=== PATIENT | female | born 1975 | race Caucasian/White ===

== ENCOUNTER 2020-03-08 06:01 | Inpatient (IN) ==
--- NOTE | 2020-02-23 10:48 | Anesthesiology Consultation ---
Date of Service February 23, 2020 Assessment & Plan (1) Encounter for pre-operative examination: Chart Review Chart Review: Acceptable Risk for Surgery and Patient seen in Pre Admission Testing Teaching & Discussion Instructed NPO after midnight before surgery, except medications with 15 cc of water. Medication instructions provided according to the [facility] guidelines. History Surgery Operation Date: 03/08/20 11:05 Proposed Procedures p C6-C7 Anterior Cervical Discectomy and Fusion, Possible C4-C6 Hardware Removal, Spinal Cord Monitoring - Juan Driscoll DO Height/Weight Height: 5 ft 3 in Weight: 72.5 kg Allergies Allergy/AdvReac Type Severity Reaction Status Date / Time ibuprofen AdvReac Severe difficulty Verified 02/16/20 08:40 swallowing and severe kidneu=y pain codeine AdvReac Intermediate GI SYMPTOMS Verified 02/16/20 08:40 morphine AdvReac Intermediate GI SYMPTOMS Verified 02/16/20 08:40 Medications Home Medications Medication Instructions Recorded Confirmed Last Taken aspirin 650 mg PO DAILY PRN 02/16/20 02/16/20 Unknown cyclobenzaprine 10 mg PO HS PRN 02/16/20 02/16/20 Unknown infliximab [Remicade] 100 mg IV DIRECTED 02/16/20 02/16/20 Unknown Past Medical History Medical History (Updated 02/25/20 @ 08:25 by Jethro Spencer) Bulging of cervical intervertebral disc Cardiac murmur Not noted on exam at [facility]. Cervical stenosis of spine Menopausal symptoms Numbness and tingling in left arm [employer] Pulmonary hypertension Per patient was noted on workup for murmur. Attempted to obtain stress test patient reported was done but unable to obtain. Exercise / Class Metabolic Activity II 4-5 Yardwork/Stairs/Walk up hill (Denies CP or with 1 FOS) Past Family History Family History Uncle Family history of diabetes mellitus Past Surgical History Surgical History History of back surgery X8 LOWER History of colonoscopy Hx of cervical spine surgery Hx of cholecystectomy Hx of tubal ligation Past Anesthesia History No Hx of Anesthesia Complications and No Family Hx of Anesthesia Complications History of PONV No Hx of PONV and No Hx of Motion Sickness Social History Smoking Status: Current every day smoker tobacco type: cigarettes Smoking cigarettes per day: 20 Hx Alcohol Use: Yes Alcohol type: beer alcohol intake frequency: a few times a month Hx Substance Use: Yes substance use type: marijuana (Daily - patient advised none x 24hrs prior to arrival) Review of Systems Pt denies any recent chest pain, shortness of breath, palpitations, cough, fever or URI. +"Smokers cough" chronic Physical Exam Vital Signs BP: 119/75 P: 77bpm SPO2: 96% RA T: 98.3 F R: 16 ENMT Mouth: no dental restorations, no chipped teeth and no loose teeth Thyromental Distance: > or= 3.5 Finger Breadths (3.5) Mallampati Class: III Neck normal visual inspection; neck extension not limited Respiratory normal respiratory effort Auscultation: + wheezes (scattered B/L, loudest in R lung base) Cardiovascular Rate/Rhythm: regular rate and regular rhythm Heart Sounds: no murmur Vessels: no carotid bruit Extremities: no edema Testing Laboratory Results 02/23/20 10:58 02/23/20 10:58 PT 10.4 Seconds (9.0-12.0) 02/23/20 10:58 INR 1.0 (0.9-1.1) 02/23/20 10:58 APTT 30.8 Seconds (21.0-31.0) 02/23/20 10:58 Urine Color Yellow 02/23/20 10:58 Urine Appearance Clear (Clear) 02/23/20 10:58 Urine pH 6.5 (4.5-7.5) 02/23/20 10:58 Ur Specific Sulphur 1.010 (1.000-1.030) 02/23/20 10:58 Urine Protein Negative (Negative) 02/23/20 10:58 Urine Glucose (UA) Negative (Negative) 02/23/20 10:58 Urine Ketones Negative (Negative) 02/23/20 10:58 Urine Nitrite Negative (Negative) 02/23/20 10:58 Ur Leukocyte Esterase Negative (Negative) 02/23/20 10:58 Blood Type O Positive 02/23/20 10:58 Antibody Screen NEGATIVE 02/23/20 10:58 Electrocardiogram Date: 02/23/20 Findings: + NSR @ (66bpm) Right atrial enlargement. No significant change from EKG 11/03/13. Chest X-Ray Date: 02/23/20 Findings: + NAD
--- NOTE | 2020-02-23 10:52 | PAT Medication Instructions ---
Medication Instructions Date of Service February 23, 2020 Home Medications aspirin 650 mg PO DAILY PRN cyclobenzaprine 10 mg PO HS PRN infliximab [Remicade] 100 mg IV DIRECTED Continue as directed infliximab [Remicade] 100 mg IV DIRECTED ASK your surgeon for instructions aspirin 650 mg PO DAILY PRN Take evening before surgery cyclobenzaprine 10 mg PO HS PRN (if needed) Other Notes If you have any questions please call us at [phone] or [phone] or [phone] or [phone]
--- NOTE | 2020-02-23 11:27 | XRay Report ---
XR chest Pre-admission PA/Lat CLINICAL HISTORY: 44 years-old Female presenting with preoperative assessment. TECHNIQUE: PA and lateral views of the chest were obtained. COMPARISON: 11/03/2013. FINDINGS: Cardiomediastinal silhouette normal. Lungs and pleural spaces clear. Posterior lumbar fusion hardware partially visualized. Cholecystectomy clips noted. IMPRESSION: 1. No acute cardiopulmonary disease. ACT 112: Negative or not required by law. Electronically signed by: Jc Onofre M.D. 02/23/2020 11:26 AM
[2020-02-23 12:15] LABS: Basophils # (auto) 0.04 K/uL (0-0.2); Basophils % (auto) 0.4 %; Eosinophils % (auto) 2.2 %; Hematocrit (blood only) 44.7 % (37-47); Hemoglobin 15.2 g/dL (12.0-16.0); Immature Granulocytes # (auto) 0.01 K/uL (0.00-0.02); Immature Granulocytes % (auto) 0.1 %; Lymphocytes # (auto) 2.65 K/uL (1.2-3.4); Lymphocytes % (auto) 29.2 %; Mean Corpuscular Hemoglobin 30.9 pg (25-34); Mean Corpuscular Volume 90.9 fL (80-100); Mean Platelet Volume 9.2 fL (7.4-10.4); Monocytes # (auto) 0.86 K/uL (0.11-0.59); Monocytes % (auto) 9.5 %; Neutrophils # (auto) 5.33 K/uL (1.4-6.5); Neutrophils % (auto) 58.6 %; Platelet Count 299 K/uL (130-400); RDW Coefficient of Variation 13.5 % (11.5-14.5); RDW Standard Deviation 44.4 fL (36.4-46.3); Red Blood Count 4.92 M/uL (4.2-5.4); White Blood Count 9.09 K/uL (4.8-10.8)
[2020-02-23 12:18] LABS: Appearance Urine Clear (Clear); Bilirubin Urine Negative (Negative); Blood Urine Negative (Negative); Color Urine Yellow; Glucose Urine UA Negative (Negative); Ketones Urine Negative (Negative); Leukocyte Esterase Urine Negative (Negative); Nitrite Urine Negative (Negative); Protein Urine Negative (Negative); Urobilinogen Urine Negative (Negative); pH Urine 6.5 (4.5-7.5)
[2020-02-23 12:23] LABS: BUN Creatinine Ratio 15.1 (10-20); Calcium 9.5 mg/dl (8.5-10.1); Creatinine Clr Calc Pharmacy 103.2 ml/min; Est GFR (African American) 123.4; Est GFR (Non-African American) 106.5; Potassium 4.5 mmol/L (3.5-5.1)
[2020-02-23 12:35] LABS: Partial Thromboplastin Ratio 1.1; Partial Thromboplastin Time 30.8 Seconds (21.0-31.0); Prothrombin Time 10.4 Seconds (9.0-12.0)
--- NOTE | 2020-02-23 14:31 | Electrocardiogram Report ---
Test Reason : Blood Pressure : / mmHG Vent. Rate : 066 BPM Atrial Rate : 066 BPM P-R Int : 136 ms QRS Dur : 094 ms QT Int : 412 ms P-R-T Axes : 087 089 079 degrees QTc Int : 431 ms Normal sinus rhythm Right atrial enlargement Borderline ECG When compared with ECG of 03-NOV-2013 12:31, No significant change was found Confirmed by Leon Santos ([id number]) on 02/23/2020 2:31:37 PM Referred By: Juan Driscoll Confirmed By:Alexis Santos
--- NOTE | 2020-03-07 12:05 | History & Physical Report ---
Date of Service March 07, 2020 Assessment & Plan (1) Myelopathy concurrent with and due to spinal stenosis of cervical region: At this time patient is having a steady decline in neurologic function including signs of myelopathy. Subsequently I am recommending urgent anterior cervical discectomy and fusion at see 6 C7 to adequately decompress the cord hopefully halt the progression of myelopathy and strength deficits emanating to the left arm. With therapy she may regain some strength. Acknowledging that there is a coated pandemic however waiting for a more weeks could result in permanent neurologic deficit and sequela I unable to to be resolved with surgical intervention. Surgery will require an anterior cervical discectomy and fusion at C6-C7, possible hardware removal C4-C6. Present on Admission?: Yes History of Present Illness Chief Complaint: Neck with arm pain and weakness Primary Care Provider: Royer Gutiérrez This is a 44-year-old female with a history of a previous cervical fusion at C4- 5 C5-6 many years ago. Recently she began noticing a new onset of pain rating into the left greater than right arm with strength deficits involving the left hand and triceps. This is been progressive in nature. She denies any precipitating trauma fall or event. All activities exacerbate her symptoms. She is a 7-8 out of 10 with pain. She notes deficits with fine motor skills and coordination using her hands. Allergies Allergy/AdvReac Type Severity Reaction Status Date / Time ibuprofen AdvReac Severe difficulty Verified 02/16/20 08:40 swallowing and severe kidneu=y pain codeine AdvReac Intermediate GI SYMPTOMS Verified 02/16/20 08:40 morphine AdvReac Intermediate GI SYMPTOMS Verified 02/16/20 08:40 Home Medications Home Medications Medication Instructions Recorded Confirmed Type aspirin 650 mg PO DAILY PRN 02/16/20 02/16/20 History cyclobenzaprine 10 mg PO HS PRN 02/16/20 02/16/20 History infliximab [Remicade] 100 mg IV DIRECTED 02/16/20 02/16/20 History Past Med/Surg History Medical History (Updated 03/07/20 @ 12:03 by Juan Driscoll DO) Bulging of cervical intervertebral disc Cardiac murmur Not noted on exam at [facility]. Cervical stenosis of spine Menopausal symptoms Numbness and tingling in left arm [employer] Pulmonary hypertension Per patient was noted on workup for murmur. Attempted to obtain stress test patient reported was done but unable to obtain. Surgical History History of back surgery X8 LOWER History of colonoscopy Hx of cervical spine surgery Hx of cholecystectomy Hx of tubal ligation Family History Uncle Family history of diabetes mellitus Social History Preferred Language: Chilean Communication Ability: Effective Beliefs That Will Affect Care: None Current Living Situation: Alone Feels Safe at Home: Yes Safety Concerns: Feels Safe At This Time Smoking Status: Current every day smoker Tobacco Type: cigarettes ; Cigarettes Per Day: 20 ; Second Hand Exposure: No ; Hx Alcohol Use: Yes Alcohol type: beer Hx Substance Use: Yes substance use type: marijuana (Daily - patient advised none x 24hrs prior to arrival) Physical Exam Physical Exam: On exam she is in obvious distress. She exhibits markedly positive Spurling sign to the left as well as evidence of a Lhermitte's phenomenon. She exhibits left-sided strength deficits at a 4/5 grasp and triceps. She had sensory deficits bilaterally. There is a negative Tinel's over the cubital and carpal tunnels. Heart is regular rate and rhythm Lungs clear to auscultation Results & Data Diagnostic Findings MRI of the cervical spine demonstrates evidence of decompression fusion at C4-5 and C5-6. C6-7 there is broad central disc herniation with severe bilateral neuroforaminal disease. There is evidence of cord contour change and myelomalacia at the 6 7 level. All other levels are relatively benign.
[~2020-03-08 06:01] MED LIST: ACETAMINOPHEN 500 MG TAB PO SCH; CEFAZOLIN 1000MG 1,000 MG/7.5 ML SYR IV SCH; CeleBREX 200 MG CAP PO SCH; GABAPENTIN 900 MG DOSE PO SCH; LR 15ML/HR IV SCH
[2020-03-08] MEDS ORDERED: ePHEDrine sulfate 50 MG/ML AMP IV PRN (06:56)
[2020-03-08] MEDS ORDERED: ATROPINE SULFATE 0.1 MG/ML 10ML SYR IV PRN (06:56)
[2020-03-08] MEDS ORDERED: PROMETHAZINE HCL 12.5 MG in SODIUM CHLORIDE 0.9% 50 ML IV PRN ×2 (06:56→11:19)
[2020-03-08] MEDS ORDERED: ONDANSETRON INJ 2 MG/ML 2 ML VIAL IV PRN ×2 (06:56→11:19)
[2020-03-08] MEDS ORDERED: LIDOCAINE HCL 2% 2 ML VIAL/AMP(20MG/ML) INFIL ONE (07:04)
[2020-03-08] MEDS ORDERED: ONDANSETRON INJ 2 MG/ML 2 ML VIAL ONE (07:04)
[2020-03-08] MEDS ORDERED: DEXAMETHASONE SOD INJ 4 MG/ML VIAL ONE ×2 (07:04→10:05)
[2020-03-08] MEDS ORDERED: GLYCOPYRROLATE 0.2 MG/ML VIAL ONE (07:04)
[2020-03-08] MEDS ORDERED: NEOSTIGMINE METHYLSULFATE 5 MG/5 ML SYR ONE (07:04)
[2020-03-08] MEDS ORDERED: fentaNYL citrate 100 MCG/2 ML VIAL ONE ×2 (07:04)
[2020-03-08] MEDS ORDERED: PROPOFOL IV EMULSION 10 MG/ML 20 ML VIAL IV ONE (07:04)
[2020-03-08] MEDS ORDERED: MIDAZOLAM HCL 1 MG/ML 2ML VIAL ONE (07:04)
--- NOTE | 2020-03-08 07:40 | History & Physical Bridge Note ---
Date of Service March 08, 2020 History & Physical Bridge Note I have examined the patient, reviewed the History & Physical and in the interval since the performance of the History & Physical I have noted the following changes of clinical significance: no changes noted
[2020-03-08] MEDS ORDERED: BACITRACIN INJ 50,000 UNIT VIAL ONE (07:46)
[2020-03-08] MEDS ORDERED: HYDROmorphone INJ 2 MG/ML SYR/VIAL ONE (08:24)
[2020-03-08] MEDS ORDERED: PHENYLEPHRINE 100MCG/ML 5ML SYR ONE (08:45)
[2020-03-08] MEDS ORDERED: FLOSEAL HEMOSTATIC MATRIX 10ML TOP ONE (08:50)
--- NOTE | 2020-03-08 09:40 | Fluoroscopy Report ---
FL cervical 2-3V CLINICAL HISTORY: 44 years-old Female presenting with C6-C7 ACDF. TECHNIQUE: 2 fluoroscopic image(s) recorded as part of an intraoperative procedure. COMPARISON: None. FINDINGS/IMPRESSION: Anterior cervical discectomy and fusion of C6-7. Fusion hardware also noted at C4-5 and C5-6. Normal anatomic alignment. Surgical sponge and support tubing project over the anterior neck. Please see surgical report for further details. Fluoroscopy dosage (mGy): 1.49. Fluoroscopy time: 11.6 seconds. Number or time of high level fluoroscopy (HLF), digital spot, or digital subtraction images: 0. ACT 112: Negative or not required by law. Electronically signed by: Jc Onofre M.D. 03/08/2020 9:39 AM
--- NOTE | 2020-03-08 09:47 | Operative Report ---
Post Operative Report Pre & Post Diagnosis Operation Date: 03/08/20 07:45 Pre-Op Diagnosis: Cervical spinal stenosis with myeloradiculopathy Post-Op Diagnosis: Same I identified the patient and participated in the time-out.: Yes Procedure Operation Date: 03/08/20 07:45 Actual Procedures #1 anterior cervical discectomy with bilateral foraminotomies C6-7. #2 anterior cervical arthrodesis C6-7. #3 placement of Spira 9 mm cage filled with DBM and see 6 7. #4 application of 5 complete screws across C6-7. Surgeon Juan Driscoll, Chief Order Dispatcher Mary Theodore Estimated Blood Loss 50 Findings Consistent with Post-Op Diagnosis Specimens None Indications This is a 44-year-old female that presents with worsening left arm pain and w eakness that is been progressive in nature subsequently we performed urgent decompression and fusion. Description of Procedure Patient was met with identified informed consent obtained. Patient was then taken to the operative suite underwent intubation was placed in supine position the Abhinav table head Moseley head baker. All bony prominences well-padded eyes inspected to ensure no external pressure placed upon the. This point the anterior cervical spine was prepped and draped in a sterile fashion. The assistance of fluoroscopy identified the see 6 7 level a transverse incision was placed along the right anterior aspect of the cervical spine. Sharp dissection with assistance of bipolar electrocautery is warm down to and exposing the anterior cervical spine at C6-7. I verified my position with fluoroscopy. Then performed a complete discectomy out to the uncovertebral joints right leg. Willits distracting pins utilized to assist in visualization. Removed all posterior annular fibers longitudinal ligament bilateral foraminotomies performed for complete decompression of the roots. Endplates were then burred to subcortical bleeding bone and a 9 mm spiral cage filled with DBM tapped position. Distracting apparatus was removed 5 complete screws applied with the assistance of fluoroscopy and incision was then copiously irrigated explored to ensure no damage to surrounding structures remaining bleeding. 10 round TERESITA drain inserted. Incision was then closed with 2 Vicryl in a fashion of 4 Monocryl for final skin closure. Steri-Strip sterile dressings placed. Patient will continue PACU stable condition. Please note Mary Theodore present at the entire procedure involved the patient positioning complex portions of the surgery final skin closure. Lastly spinal cord monitoring was utilized that the procedure no changes noted. I attest to the content of the Intraoperative Record and any orders documented therein. Any exceptions are noted below.
[2020-03-08] MEDS ORDERED: SUCCINYLCHOLINE CHLORIDE 20 MG/ML 10 ML VIAL ONE (10:05)
[2020-03-08] MEDS ORDERED: ROCURONIUM BROMIDE 10 MG/ML 5 ML VIAL ONE (10:05)
[2020-03-08] MEDS: fentaNYL citrate 100 MCG/2 ML VIAL IV PRN ×4 (10:09→10:24)
[2020-03-08] MEDS: HYDROmorphone INJ 2 MG/ML SYR/VIAL IV PRN ×2 (10:29→10:34)
--- NOTE | 2020-03-08 10:58 | Anesthesiology Progress Note ---
Date of Service March 08, 2020 Anesthesia Post Procedure Vital Signs Vital Signs: Temp Pulse Resp BP Pulse Ox 03/08/20 10:45 36.4 C L 60 13 110/75 98 03/08/20 10:35 65 15 120/69 99 03/08/20 10:25 53 L 18 115/75 98 03/08/20 10:15 54 L 19 108/74 95 03/08/20 10:05 59 L 15 122/81 100 03/08/20 09:59 36.8 C 71 21 116/77 100 03/08/20 06:29 36.6 C 85 20 147/93 H 98 Pain Intensity Neck: Pain Intensity: 6 Transfer of Care Handoff Completed per policy Notes Mental Status: alert / awake / arousable and participated in evaluation Patient Amnestic to Procedure: Yes Nausea / Vomiting: adequately controlled Pain: adequately controlled Airway Patency, RR, SpO2: stable & adequate BP & HR: stable & adequate Hydration State: stable & adequate Anesthetic Complications: no major complications apparent
[2020-03-08] MEDS: LACTATED RINGER'S 1,000 ML IV SCH ×2 (11:10→19:30)
[2020-03-08] MEDS ORDERED: DO NOT ADMINISTER PNEUMOCOCCAL VACCINE PRN (11:19)
[2020-03-08] MEDS ORDERED: ONDANSETRON 4 MG OD TAB PO PRN (11:19)
[2020-03-08] MEDS ORDERED: ASPIRIN 325 MG ECTAB PO PRN (11:19)
[2020-03-08] MEDS ORDERED: ALUMINUM/MAGNESIUM SUSP 30 ML UDC PO PRN (11:19)
[2020-03-08] MEDS ORDERED: LORazepam 0.5 MG TAB PO PRN (11:19)
[2020-03-08] MEDS ORDERED: FAMOTIDINE 20 MG TAB PO PRN (11:19)
[2020-03-08] MEDS ORDERED: LORazepam 0.5 MG/1 ML VIAL IV PRN (11:19)
[2020-03-08] MEDS ORDERED: SOD PHOSPHATE/SOD BIPHOSPHATE ENEMA 132 ML BTL PR PRN (11:19)
[2020-03-08] MEDS ORDERED: ACETAMINOPHEN 500 MG TAB PO PRN (11:19)
[2020-03-08] MEDS ORDERED: NALOXONE HCL 0.4 MG/1 ML VIAL/CARP IV PRN (11:19)
[2020-03-08] MEDS ORDERED: HYDROmorphone INJ 0.5 MG/0.5 ML SYR IV PRN (11:19)
[2020-03-08] MEDS ORDERED: MAGNESIUM HYDROXIDE SUSP 30 ML UDC PO PRN (11:19)
[2020-03-08] MEDS ORDERED: DEXAMETHASONE SOD PHOSPHATE 8 MG in SYRINGE 0 ML IV PRN (11:19)
[2020-03-08] MEDS ORDERED: METOCLOPRAMIDE HCL INJ 5 MG/ML 2 ML VIAL IV PRN (11:19)
[2020-03-08] MEDS ORDERED: DO NOT ADMINISTER FLU VACCINE PRN (11:19)
[2020-03-08] MEDS ORDERED: RACEPINEPHRINE 2.25% NEBU SOLN 0.5 ML VIAL INH PRN (11:19)
[2020-03-08] MEDS ORDERED: CYCLOBENZAPRINE HCL 10 MG TAB PO PRN (11:33)
[2020-03-08] MEDS: OXYCODONE HCL IR 5 MG TAB (IMMEDIATE RELEASE) PO PRN ×3 (11:43→22:32)
[2020-03-08] MEDS: HYDROmorphone INJ 1 MG/ML SYRINGE IV PRN ×2 (13:40→18:36)
[2020-03-08] MEDS: CEFAZOLIN 2000MG 2,000 MG/15 ML SYR IV SCH (16:14)
[2020-03-08] MEDS: ACETAMINOPHEN 1,000 MG/100 ML VIAL IV PRN (17:10)
[2020-03-08] MEDS: NICOTINE 21 MG/24 HR TDSY TD SCH (18:29)
[2020-03-08] MEDS ORDERED: DOCUSATE SODIUM/SENNA 50/8.6MG TAB PO SCH (21:00)
[2020-03-08] MEDS ORDERED: ALBUTEROL HFA 8 GM INHALER INH PRN (23:37)
[2020-03-09] MEDS: HYDROmorphone INJ 1 MG/ML SYRINGE IV PRN ×2 (00:19→07:35)
[2020-03-09] MEDS: CEFAZOLIN 2000MG 2,000 MG/15 ML SYR IV SCH (00:24)
[2020-03-09] MEDS: OXYCODONE HCL IR 5 MG TAB (IMMEDIATE RELEASE) PO PRN ×2 (05:17→10:40)
[2020-03-09] MEDS: LACTATED RINGER'S 1,000 ML IV SCH (05:52)
[2020-03-09] MEDS: ACETAMINOPHEN 1,000 MG/100 ML VIAL IV PRN (05:54)
--- NOTE | 2020-03-09 07:33 | Anesthesiology Progress Note ---
Date of Service March 09, 2020 Anesthesia Post Procedure Vital Signs Vital Signs: Temp Pulse Pulse Resp BP Pulse Ox 03/09/20 07:05 36.7 C 76 17 118/72 93 03/09/20 04:55 36.7 C 75 18 117/75 96 03/09/20 03:39 77 18 95 03/09/20 03:10 36.7 C 66 16 108/67 96 03/09/20 00:48 36.4 C L 88 16 128/77 94 03/08/20 23:00 36.7 C 63 20 116/66 94 03/08/20 22:53 73 18 94 03/08/20 21:00 36.5 C 66 18 118/72 03/08/20 19:15 36.6 C 83 18 121/70 94 03/08/20 19:08 84 18 93 03/08/20 18:15 74 15 115/68 94 03/08/20 16:08 60 15 116/69 93 03/08/20 15:52 72 14 95 03/08/20 14:17 61 13 106/70 96 03/08/20 13:33 36.4 C L 64 14 107/68 95 03/08/20 12:20 61 16 114/72 94 03/08/20 11:45 58 L 15 117/80 95 03/08/20 11:31 69 16 90 03/08/20 11:25 36.6 C 63 14 110/74 92 03/08/20 10:55 67 19 123/54 L 96 03/08/20 10:45 36.4 C L 60 13 110/75 98 03/08/20 10:35 65 15 120/69 99 03/08/20 10:25 53 L 18 115/75 98 03/08/20 10:15 54 L 19 108/74 95 03/08/20 10:05 59 L 15 122/81 100 03/08/20 09:59 36.8 C 71 21 116/77 100 Pain Intensity Neck: Pain Intensity: 9 Notes Mental Status: alert / awake / arousable and participated in evaluation Nausea / Vomiting: adequately controlled Pain: adequately controlled Airway Patency, RR, SpO2: stable & adequate BP & HR: stable & adequate Hydration State: stable & adequate Anesthetic Complications: no major complications apparent and Pt Satisfied with anesthetic care
[2020-03-09] MEDS ORDERED: DEXAMETHASONE SOD PHOSPHATE 8 MG in SYRINGE 0 ML IV ONE (07:45)
[2020-03-09] MEDS ORDERED: POLYETHYLENE (MIRALAX) 17 GM PACK PO SCH (09:48)
[2020-03-09] MEDS: NICOTINE 21 MG/24 HR TDSY TD SCH (10:01)
--- NOTE | 2020-03-09 10:16 | Discharge Summary ---
Date of Service March 09, 2020 Admission HPI Per Admitting Provider This is a 44-year-old female with a history of a previous cervical fusion at C4- 5 C5-6 many years ago. Recently she began noticing a new onset of pain rating into the left greater than right arm with strength deficits involving the left hand and triceps. This is been progressive in nature. She denies any precipitating trauma fall or event. All activities exacerbate her symptoms. She is a 7-8 out of 10 with pain. She notes deficits with fine motor skills and coordination using her hands. Principal Diagnosis Cervical spinal stenosis with myeloradiculopathy Discharge Data Allergies Allergy/AdvReac Type Severity Reaction Status Date / Time ibuprofen Allergy Severe Swelling Verified 03/08/20 06:31 of Lip/Tongue/Throat tramadol [From Ultram] Allergy Intermediate Rash Verified 03/08/20 06:31 codeine AdvReac Intermediate GI SYMPTOMS Verified 03/08/20 06:31 morphine AdvReac Intermediate GI SYMPTOMS Verified 03/08/20 06:31 Procedures Performed Operation Date: 03/08/20 07:45 Actual Procedures p C6-C7 Anterior Cervical Discectomy and Fusion, Spinal Cord Monitoring(Not Applicable) - Juan Driscoll DO Ordered Studies 03/08/20 07:45 FL cervical 2-3V Routine FL fluoroscopy <1hr Routine Hospital Course (1) Myelopathy concurrent with and due to spinal stenosis of cervical region: Patient underwent anterior cervical discectomy and fusion tolerated this well was taken to the orthopedic floor postoperatively. Postop day #1 she had no hoarseness no swallowing issues. She demonstrated increased strength testing to the upper extremities. She felt her fine motor skills was slowly improving. She is states that most of her numbness is completely resolved. Subsequently she was discharged home. Discharge orders and instructions found in the chart for further review. Total Time Total Time Spent Total Time Spent (In Minutes): 20 minutes Discharge Plan Discharge Items Patient Disposition: Home - Self-Care Reason For Visit: Spinal Stenosis, Cervical Region Discharge Diagnosis: Cervical spinal stenosis with myeloradiculopathy Activity: As commented below Non-emergency contact: Primary Care Provider Call non-emergency contact if: you have any medication questions Follow-up/Referrals: Royer Gutiérrez DO [Primary Care Provider] - Diet: Regular Addtl Attending Provider Instructions: ACTIVITY RECOMMENDATIONS: SELF CARE INSTRUCTIONS AFTER CERVICAL FUSIONS 1. No smoking. Smoking drastically decreases the chance of a solid fusion. 2. No bending, lifting more than 5 pounds, or twisting (roll like a log when turning in bed). 3. You may shower 3 days after surgery. Thoroughly dry wound. Do not soak in the tub. 4. Cervical collar: Must be worn at all times including sleeping. You may remove the brace only to bath, eat and if you are sitting in a recliner. 5. Please walk as much as you can for exercise. Gradually increase the distance that you walk as your endurance increases. SPECIAL CARE INSTRUCTIONS: VERY IMPORTANT TO READ AND REVIEW A. Do not take any anti-inflammatory medications (i.e. Indocin, Advil, Aspirin, Naprosyn, Aleve, Motrin, etc.) as these may inhibit the chance of a solid fusion. Tylenol is okay to take. B. Your surgical incision has been closed with a cosmetic suture under the skin that will dissolve in about 6 weeks. In 14 days, you can use a pair of clean scissors and cut the suture that is left outside of the skin at the ends of your incision. C. Complications are uncommon, but please contact us if you have any signs or symptoms of: 1. wound infection (fever higher than 102.5 degrees F, redness, separation of wound, drainage, or increasing pain from the incision) 2. blood clots in legs (pain, swelling, redness and warmth in legs) 3. urinary tract infection (fever higher than 102.5 degrees, burning upon urination or increased frequency of urination) 4. nerve problems (inability to walk on your toes or heels, numbness, loss of bowel or bladder control) 5. any other symptoms that concern you. D. Please call the office at if you have any concerns or questions about your operation or recovery. MANAGING PAIN AFTER SPINAL SURGERY 1. Narcotic medication is intended for short-term use and will be provided for surgical pain. Surgical pain usually lasts for a period of 4-6 weeks. Narcotic medication includes Percocet, Vicodin, Darvocet, Tylenol #3 or Lortab. 2. Longer-term pain is more appropriately treated with non-narcotic medication such as Tylenol ES. 3. Muscle spasm is not appropriately treated with narcotics. Muscle relaxers such as Soma, Flexeril or Skelaxin can be used along with Tylenol ES. 4. Remember that we all live with some "aches and pains". This is not unusual or uncommon after an injury or as we get older. 5. We will provide appropriate medication within the normal guidelines of their prescribed use. We will also be very cautious and aware of potential abuse and extended duration of patients' medication needs. 6. Please allow 2-3 days to process refills. Prescriptions will not be mailed but must be picked up at the office. FOLLOW UP VISIT: Keep your scheduled follow-up appointment. Any questions, please call the office at . Pending Studies at Discharge: No Stand-Alone Forms: My [facility], Smoking Cessation Medications and DC Order Prescriptions: New oxycodone 5 mg tablet 5 mg PO Q6H PRN (Reason: pain, severe) Qty: 15 RF: 0 Continued cyclobenzaprine 10 mg Tablet 10 mg PO HS PRN (Reason: Pain) RF: 0 aspirin 325 mg Tablet 650 mg PO DAILY PRN (Reason: Headache) RF: 0 Remicade 100 mg Recon Soln 100 mg IV DIRECTED RF: 0 Discharge Orders: Discharge Order (Routine); Ordered 03/09/20 Ordered By: Juan Driscoll Admission Data Admit Date/Time: 03/08/20 10:07 Attending Provider: Juan Driscoll Admit Provider: Juan Driscoll Primary Care Provider: Royer Gutiérrez
[2020-03-10] MEDS ORDERED: bisacodyL 10 MG SUPP PR PRN (09:48)
== END 2020-03-09 12:30 | disposition home or self-care (01) | DRG 473 ==
LOC: ASU 06:01 → 3E 10:07

== ENCOUNTER 2020-03-15 10:59 | Inpatient (IN) ==
[2020-03-15] MEDS ORDERED: PROMETHAZINE HCL 12.5 MG in SODIUM CHLORIDE 0.9% 50 ML IV PRN (11:47)
[2020-03-15] MEDS ORDERED: ONDANSETRON 4 MG OD TAB PO PRN (11:47)
[2020-03-15] MEDS ORDERED: ACETAMINOPHEN 500 MG TAB PO PRN (11:47)
[2020-03-15] MEDS ORDERED: OXYCODONE HCL IR 5 MG TAB (IMMEDIATE RELEASE) PO PRN (11:47)
[2020-03-15] MEDS ORDERED: METOCLOPRAMIDE HCL INJ 5 MG/ML 2 ML VIAL IV PRN (11:47)
[2020-03-15] MEDS ORDERED: LORazepam 1 MG TAB PO PRN (11:47)
[2020-03-15] MEDS ORDERED: LORazepam 1 MG/2 ML VIAL IV PRN (11:47)
[2020-03-15] MEDS ORDERED: ONDANSETRON INJ 2 MG/ML 2 ML VIAL IV PRN (11:47)
--- NOTE | 2020-03-15 12:02 | Anesthesiology Consultation ---
Date of Service March 15, 2020 Assessment & Plan (1) Encounter for pre-operative examination: Chart Review Chart Review: order entry representative initiated History Surgery Operation Date: 03/16/20 10:45 Proposed Procedures p Revision C6-C7 Anterior Cervical Discectomy Fusion; Spinal Cord Monitoring - Juan Driscoll DO Allergies Allergy/AdvReac Type Severity Reaction Status Date / Time ibuprofen Allergy Severe Swelling Verified 03/08/20 06:31 of Lip/Tongue/Throat tramadol [From Ultram] Allergy Intermediate Rash Verified 03/08/20 06:31 codeine AdvReac Intermediate GI SYMPTOMS Verified 03/08/20 06:31 morphine AdvReac Intermediate GI SYMPTOMS Verified 03/08/20 06:31 Medications Home Medications Medication Instructions Recorded Confirmed Last Taken Remicade 100 mg IV DIRECTED 02/16/20 03/08/20 Unknown aspirin 650 mg PO DAILY PRN 02/16/20 03/08/20 03/03/20 cyclobenzaprine 10 mg PO HS PRN 02/16/20 03/08/20 03/04/20 oxycodone 5 mg PO Q6H PRN #15 tab 03/09/20 Unknown Past Medical History Medical History Bulging of cervical intervertebral disc Cardiac murmur Not noted on exam at [facility]. 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 Attempted to obtain stress test patient reported was done but unable to obtain. Past Family History Family History Uncle Family history of diabetes mellitus Past Surgical History Surgical History History of back surgery X8 LOWER History of colonoscopy Hx of cervical spine surgery Hx of cholecystectomy Hx of tubal ligation Social History Smoking Status: Current every day smoker tobacco type: cigarettes Smoking cigarettes per day: 20 Hx Alcohol Use: Yes Alcohol type: beer alcohol intake frequency: a few times a month Hx Substance Use: Yes substance use type: marijuana (Daily - patient advised none x 24hrs prior to arrival) Testing Laboratory Results Laboratory Tests 02/23/20 02/23/20 02/23/20 10:58 10:58 10:58 WBC 9.09 Hgb 15.2 Plt Count 299 PT 10.4 INR 1.0 APTT 30.8 Sodium 138 Potassium 4.5 Chloride 106 Carbon Dioxide 29 BUN 10 Creatinine 0.65 Glucose 91 Electrocardiogram Date: 02/23/20 Normal sinus rhythm, rate 66 bpm Right atrial enlargement Borderline ECG When compared with ECG of 03-NOV-2013 12:31, No significant change was found Confirmed by Leon Santos ([id number]) on 02/23/2020 2:31:37 PM Chest X-Ray Date: 02/23/20 Findings: + NAD Cervical Spine Date: 03/08/20 FINDINGS/IMPRESSION: Anterior cervical discectomy and fusion of C6-7. Fusion hardware also noted at C4-5 and C5-6. Normal anatomic alignment. Surgical sponge and support tubing project over the anterior neck.
[2020-03-15] MEDS: LACTATED RINGER'S 1,000 ML IV SCH ×2 (12:20→23:38)
[2020-03-15] MEDS: dexAMETHasone 8 MG in SYRINGE 0 ML IV SCH ×2 (12:23→20:36)
[2020-03-15] MEDS: HYDROmorphone INJ 0.5 MG/0.5 ML SYR IV PRN ×2 (12:53→15:58)
[2020-03-15] MEDS: NICOTINE 21 MG/24 HR TDSY TD SCH (16:08)
[2020-03-15] MEDS: HYDROmorphone INJ 1 MG/ML SYRINGE IV PRN ×2 (19:00→23:37)
[2020-03-15] MEDS: DOCUSATE SODIUM 100 MG CAP PO SCH (20:36)
[2020-03-16] MEDS: dexAMETHasone 8 MG in SYRINGE 0 ML IV SCH (03:40)
[2020-03-16] MEDS: HYDROmorphone INJ 1 MG/ML SYRINGE IV PRN ×9 (03:44→22:30)
--- NOTE | 2020-03-16 07:33 | History & Physical Report ---
Date of Service March 16, 2020 Assessment & Plan (1) Myelopathy concurrent with and due to spinal stenosis of cervical region: At this time I am recommending urgent revision decompression and fusion at C6-C7. Risk benefits pros cons and alternatives were outlined in detail. Present on Admission?: Yes History of Present Illness Chief Complaint: Neck and right arm pain Primary Care Provider: Royer Gutiérrez This is a 44-year-old female that is 1 week status post ACDF C6-C7. She presents to my office yesterday with a marked decline in status now with severe right sided cervical radiculopathy in a C7 pattern. This began approximately 2 to 3 days postop. Imaging in my office demonstrates possible collapse of the interbody cage. She has not responded to oral steroids or any pain medication. The pain is severe. Allergies Allergy/AdvReac Type Severity Reaction Status Date / Time ibuprofen Allergy Severe Swelling Verified 03/08/20 06:31 of Lip/Tongue/Throat tramadol [From Ultram] Allergy Intermediate Rash Verified 03/08/20 06:31 codeine AdvReac Intermediate GI SYMPTOMS Verified 03/08/20 06:31 morphine AdvReac Intermediate GI SYMPTOMS Verified 03/08/20 06:31 Home Medications Home Medications Medication Instructions Recorded Confirmed Type Remicade 100 mg IV DIRECTED 02/16/20 03/15/20 History aspirin 650 mg PO DAILY PRN 02/16/20 03/15/20 History cyclobenzaprine 10 mg PO HS PRN 02/16/20 03/15/20 History oxycodone 5 mg PO Q6H PRN #15 tab 03/09/20 03/15/20 Rx methylprednisolone 4 mg PO DIRECTED 03/15/20 03/15/20 History Past Med/Surg History Medical History Bulging of cervical intervertebral disc Cardiac murmur Not noted on exam at [facility]. 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 Attempted to obtain stress test patient reported was done but unable to obtain. 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 She has weakness to testing the right hand grasp and triceps. The left is a 5 or 5. Heart regular rate and rhythm Lungs clear to auscultation Results & Data Vital Signs (Past 12 Hours) Vital Signs Temp Pulse Resp BP Pulse Ox 03/15/20 23:22 36.6 C 71 16 120/74 94 Code Status & VTE Plan VTE Prophylaxis Plan VTE Prophylaxis will be ordered: Yes
[2020-03-16] MEDS: NICOTINE 21 MG/24 HR TDSY TD SCH (07:58)
[2020-03-16] MEDS: DOCUSATE SODIUM 100 MG CAP PO SCH ×2 (08:02→20:22)
[2020-03-16] MEDS ORDERED: ONDANSETRON INJ 2 MG/ML 2 ML VIAL IV PRN ×2 (09:38→14:07)
[2020-03-16] MEDS ORDERED: ePHEDrine sulfate 50 MG/ML AMP IV PRN (09:38)
[2020-03-16] MEDS ORDERED: ATROPINE SULFATE 0.1 MG/ML 10ML SYR IV PRN (09:38)
[2020-03-16] MEDS ORDERED: ONDANSETRON INJ 2 MG/ML 2 ML VIAL ONE (09:58)
[2020-03-16] MEDS ORDERED: SUCCINYLCHOLINE CHLORIDE 20 MG/ML 10 ML VIAL ONE (09:58)
[2020-03-16] MEDS ORDERED: ROCURONIUM BROMIDE 10 MG/ML 5 ML VIAL ONE (09:58)
[2020-03-16] MEDS ORDERED: DEXAMETHASONE SOD INJ 4 MG/ML VIAL ONE (09:58)
[2020-03-16] MEDS ORDERED: LIDOCAINE HCL 2% 2 ML VIAL/AMP(20MG/ML) INFIL ONE (09:58)
[2020-03-16] MEDS ORDERED: PROPOFOL IV EMULSION 10 MG/ML 20 ML VIAL IV ONE (09:58)
[2020-03-16] MEDS ORDERED: fentaNYL citrate 100 MCG/2 ML VIAL ONE ×2 (09:59→12:32)
[2020-03-16] MEDS ORDERED: MIDAZOLAM HCL 1 MG/ML 2ML VIAL ONE (09:59)
--- NOTE | 2020-03-16 10:16 | History & Physical Bridge Note ---
Date of Service March 16, 2020 History & Physical Bridge Note I have examined the patient, reviewed the History & Physical and in the interval since the performance of the History & Physical I have noted the following changes of clinical significance: no changes noted
[2020-03-16] MEDS ORDERED: BACITRACIN INJ 50,000 UNIT VIAL ONE (10:22)
[2020-03-16] MEDS ORDERED: HYDROmorphone INJ 2 MG/ML SYR/VIAL ONE (11:16)
[2020-03-16] MEDS ORDERED: CEFAZOLIN 250 MG/ML 1 GM VIAL ONE (11:26)
[2020-03-16] MEDS ORDERED: FLOSEAL HEMOSTATIC MATRIX 10ML TOP ONE (12:00)
[2020-03-16] MEDS ORDERED: CEFAZOLIN 2000MG 2,000 MG/15 ML SYR IV ONE (12:01)
--- NOTE | 2020-03-16 12:24 | Operative Report ---
Post Operative Report Pre & Post Diagnosis Operation Date: 03/16/20 10:45 Pre-Op Diagnosis: Cervical Radiculopathy Post-Op Diagnosis: Cervical Radiculopathy Superior endplate fracture of C7. I identified the patient and participated in the time-out.: Yes Procedure Operation Date: 03/16/20 10:45 Actual Procedures #1 removal of instrumentation including interbody construct C6-C7. #2 revision decompression C6-C7. #3 anterior cervical arthrodesis C6-C7. #4 placement of Spira 12 mm cage filled with DBM at C6-7. #5 placement of pinto plate and scre ws across C6-7. Surgeon Juan Driscoll, DO Deli Worker Mary Theodore Estimated Blood Loss 10 Findings See Below Clear endplate fracture of C7 Specimens None Indications This is a 44-year-old female status post ACDF C6-7. She is had a more decline in status over the past several days. X-rays in the office were suspicious for collapse across the interbody constructs of C6-7. Subsequently she was admitted for urgent revision decompression fusion Description of Procedure Patient was met with identified informed consent obtained. Patient was then taken to the operative suite underwent intubation and placed in supine position the Abhinav table with head Moseley head ordered. All bony prominences well- padded. Eyes inspected to ensure no external pressure placed upon. This point the anterior cervical spine was prepped and draped in a sterile fashion. Utilizing the previous incision site sharp dissection was performed the skin was able to dissect down bluntly to the C6-7 plate. The plate was then removed distracting pins applied and the interbody cage removed. Is obvious fracture of the C7 superior endplate was noted and collapsed. I then performed a revision bilateral foraminal decompression. A 12 mm spiral plate filled with DBM was then placed in position which held reasonable distraction across the disc space. A new plate was then applied with the assistance of fluoroscopy. The incision was then copiously irrigated explored to ensure no damage to surrounding structures remaining bleeding. 10 round TERESITA drain inserted. Is then closed with 2 Vicryl in the fashion of 4 Monocryl for final skin closure. Steri-Strips dressings placed. Patient will continue PACU stable condition. Please note Mary Theodore was present at the entire procedure involved the patient positioning complex portions of the surgery and final skin closure. I attest to the content of the Intraoperative Record and any orders documented therein. Any exceptions are noted below.
[2020-03-16] MEDS ORDERED: NEOSTIGMINE METHYLSULFATE 5 MG/5 ML SYR ONE (12:34)
[2020-03-16] MEDS ORDERED: GLYCOPYRROLATE 0.2 MG/ML VIAL ONE (12:34)
[2020-03-16] MEDS: fentaNYL citrate 100 MCG/2 ML VIAL IV PRN ×4 (12:34→12:49)
[2020-03-16] MEDS ORDERED: HYDROmorphone INJ 1 MG/ML SYRINGE ONE (12:51)
--- NOTE | 2020-03-16 13:13 | Fluoroscopy Report ---
FL cervical 2-3V CLINICAL HISTORY: C6-C7 ACDF COMPARISON STUDY: Cervical spine 03/08/2020. FLUOROSCOPY TIME: 55 seconds. FINDINGS: 2 fluoroscopic spot images of the cervical spine demonstrate C6-C7 ACDF. The hardware appea rs intact. An endotracheal tube is noted within the proximal trachea. IMPRESSION: Fluoroscopy provided for C6-C7 ACDF. ACT 112: Negative or not required by law. Electronically signed by: Jd Sotelo M.D. 03/16/2020 1:11 PM
--- NOTE | 2020-03-16 13:34 | Anesthesiology Progress Note ---
Date of Service March 16, 2020 Anesthesia Post Procedure Vital Signs Vital Signs: Temp Pulse Pulse Resp BP Pulse Ox 03/16/20 13:18 36.2 C L 66 21 143/88 H 96 03/16/20 13:10 36.2 C L 66 17 142/87 H 96 03/16/20 13:00 57 L 24 146/87 H 96 03/16/20 12:50 68 16 144/88 H 96 03/16/20 12:40 69 23 159/93 H 99 03/16/20 12:30 36.2 C L 75 21 160/103 H 98 03/16/20 09:26 36.8 C 63 18 144/82 H 94 03/16/20 07:52 36.6 C 65 16 128/71 95 03/15/20 23:22 36.6 C 71 16 120/74 94 03/15/20 15:33 36.6 C 71 16 113/76 93 Pain Intensity Right Arm: Pain Intensity: 7 Neck: Pain Intensity: 4 Transfer of Care Handoff Completed per policy Notes Mental Status: alert / awake / arousable and participated in evaluation Patient Amnestic to Procedure: Yes Nausea / Vomiting: adequately controlled Pain: adequately controlled Airway Patency, RR, SpO2: stable & adequate BP & HR: stable & adequate Hydration State: stable & adequate Anesthetic Complications: no major complications apparent and Pt Satisfied with anesthetic care
[2020-03-16] MEDS ORDERED: ACETAMINOPHEN 500 MG TAB PO PRN (14:07)
[2020-03-16] MEDS ORDERED: OXYCODONE HCL IR 5 MG TAB (IMMEDIATE RELEASE) PO PRN (14:07)
[2020-03-16] MEDS ORDERED: LORazepam 0.5 MG TAB PO PRN (14:07)
[2020-03-16] MEDS ORDERED: MAGNESIUM HYDROXIDE SUSP 30 ML UDC PO PRN (14:07)
[2020-03-16] MEDS ORDERED: LORazepam 0.5 MG/1 ML VIAL IV PRN (14:07)
[2020-03-16] MEDS ORDERED: HYDROmorphone INJ 0.5 MG/0.5 ML SYR IV PRN (14:07)
[2020-03-16] MEDS ORDERED: HYDROmorphone INJ 1 MG/ML SYRINGE IV PRN (14:07)
[2020-03-16] MEDS ORDERED: DEXAMETHASONE SOD PHOSPHATE 8 MG in SYRINGE 0 ML IV PRN (14:07)
[2020-03-16] MEDS ORDERED: SOD PHOSPHATE/SOD BIPHOSPHATE ENEMA 132 ML BTL PR PRN (14:07)
[2020-03-16] MEDS ORDERED: DO NOT ADMINISTER PNEUMOCOCCAL VACCINE PRN (14:07)
[2020-03-16] MEDS ORDERED: RACEPINEPHRINE 2.25% NEBU SOLN 0.5 ML VIAL INH PRN (14:07)
[2020-03-16] MEDS ORDERED: PROMETHAZINE HCL 12.5 MG in SODIUM CHLORIDE 0.9% 50 ML IV PRN (14:07)
[2020-03-16] MEDS ORDERED: METOCLOPRAMIDE HCL INJ 5 MG/ML 2 ML VIAL IV PRN (14:07)
[2020-03-16] MEDS ORDERED: ACETAMINOPHEN 1,000 MG/100 ML VIAL IV PRN (14:07)
[2020-03-16] MEDS ORDERED: TRAMADOL HCL 50 MG TABLET PO PRN (14:07)
[2020-03-16] MEDS ORDERED: NALOXONE HCL 0.4 MG/1 ML VIAL/CARP IV PRN (14:07)
[2020-03-16] MEDS ORDERED: FAMOTIDINE 20 MG TAB PO PRN (14:07)
[2020-03-16] MEDS ORDERED: ALUMINUM/MAGNESIUM SUSP 30 ML UDC PO PRN (14:07)
[2020-03-16] MEDS ORDERED: ONDANSETRON 4 MG OD TAB PO PRN (14:07)
[2020-03-16] MEDS ORDERED: DO NOT ADMINISTER FLU VACCINE PRN (14:07)
[2020-03-16] MEDS: LACTATED RINGER'S 1,000 ML IV SCH (14:37)
[2020-03-16] MEDS: DEXAMETHASONE SOD PHOSPHATE 6 MG in SYRINGE 0 ML IV SCH ×2 (14:52→21:41)
[2020-03-16] MEDS: CEFAZOLIN 2000MG 2,000 MG/15 ML SYR IV SCH (19:40)
[2020-03-16] MEDS ORDERED: DOCUSATE SODIUM/SENNA 50/8.6MG TAB PO SCH (21:00)
[2020-03-17] MEDS: LACTATED RINGER'S 1,000 ML IV SCH (00:27)
[2020-03-17] MEDS: HYDROmorphone INJ 1 MG/ML SYRINGE IV PRN ×3 (01:31→07:43)
[2020-03-17] MEDS: CEFAZOLIN 2000MG 2,000 MG/15 ML SYR IV SCH (02:52)
[2020-03-17] MEDS ORDERED: COUGH DROP (SUGAR FREE) LOZ 24 LOZ/1 BOX BUCCAL ONE (04:01)
[2020-03-17] MEDS: DEXAMETHASONE SOD PHOSPHATE 6 MG in SYRINGE 0 ML IV SCH (05:39)
[2020-03-17] MEDS: NICOTINE 21 MG/24 HR TDSY TD SCH (07:47)
[2020-03-17] MEDS: DOCUSATE SODIUM 100 MG CAP PO SCH (07:47)
--- NOTE | 2020-03-17 08:29 | Anesthesiology Progress Note ---
Date of Service March 17, 2020 Anesthesia Post Procedure Vital Signs Vital Signs: Temp Pulse Pulse Resp BP BP Pulse Ox 03/17/20 07:25 61 16 96 03/17/20 07:02 36.5 C 54 L 16 126/76 95 03/17/20 05:04 36.9 C 58 L 16 110/71 92 03/17/20 03:39 58 L 18 93 03/17/20 02:59 36.4 C L 56 L 16 134/77 93 03/17/20 01:02 36.8 C 61 16 119/70 95 03/16/20 23:05 36.9 C 60 16 122/80 94 03/16/20 23:01 80 16 92 03/16/20 23:00 03/16/20 20:59 36.7 C 54 L 16 119/81 98 03/16/20 19:03 86 18 94 03/16/20 18:05 36.4 C L 69 16 138/87 96 03/16/20 16:57 36.4 C L 69 18 137/90 98 03/16/20 15:43 72 14 98 03/16/20 15:16 36.4 C L 76 16 130/80 97 03/16/20 14:36 69 18 119/68 93 03/16/20 14:07 03/16/20 14:00 36.9 C 67 16 134/90 96 03/16/20 13:46 36.2 C L 66 14 127/78 95 03/16/20 13:30 36.2 C L 65 14 138/84 96 03/16/20 13:20 36.2 C L 66 21 143/88 H 96 03/16/20 13:10 36.2 C L 66 17 142/87 H 96 03/16/20 13:00 57 L 24 146/87 H 96 03/16/20 12:50 68 16 144/88 H 96 03/16/20 12:40 69 23 159/93 H 99 03/16/20 12:30 36.2 C L 75 21 160/103 H 98 03/16/20 09:26 36.8 C 63 18 144/82 H 94 Pulse Ox 03/17/20 07:25 03/17/20 07:02 03/17/20 05:04 03/17/20 03:39 03/17/20 02:59 03/17/20 01:02 03/16/20 23:05 03/16/20 23:01 03/16/20 23:00 94 03/16/20 20:59 03/16/20 19:03 03/16/20 18:05 03/16/20 16:57 03/16/20 15:43 03/16/20 15:16 03/16/20 14:36 03/16/20 14:07 96 03/16/20 14:00 03/16/20 13:46 03/16/20 13:30 03/16/20 13:20 03/16/20 13:10 03/16/20 13:00 03/16/20 12:50 03/16/20 12:40 03/16/20 12:30 03/16/20 09:26 Pain Intensity Right Arm: Pain Intensity: 7 Neck: Pain Intensity: 5 Notes Mental Status: alert / awake / arousable and participated in evaluation Nausea / Vomiting: adequately controlled Pain: adequately controlled Airway Patency, RR, SpO2: stable & adequate BP & HR: stable & adequate Hydration State: stable & adequate Anesthetic Complications: no major complications apparent
--- NOTE | 2020-03-17 08:41 | Discharge Summary ---
Date of Service March 17, 2020 Admission HPI Per Admitting Provider This is a 44-year-old female that is 1 week status post ACDF C6-C7. She presents to my office yesterday with a marked decline in status now with severe right sided cervical radiculopathy in a C7 pattern. This began approximately 2 to 3 days postop. Imaging in my office demonstrates possible collapse of the interbody cage. She has not responded to oral steroids or any pain medication. The pain is severe. Principal Diagnosis Cervical radiculopathy Discharge Data Allergies Allergy/AdvReac Type Severity Reaction Status Date / Time ibuprofen Allergy Severe Swelling Verified 03/16/20 10:00 of Lip/Tongue/Throat tramadol [From Ultram] Allergy Intermediate Rash Verified 03/16/20 10:00 codeine AdvReac Intermediate GI SYMPTOMS Verified 03/16/20 10:00 morphine AdvReac Intermediate GI SYMPTOMS Verified 03/16/20 10:00 Consultations 03/15/20 11:47 Consult Anesthesiology Routine Procedures Performed Operation Date: 03/16/20 10:45 Actual Procedures p Revision C6-C7 Anterior Cervical Discectomy Fusion(Not Applicable) - Juan Driscoll DO Ordered Studies 03/16/20 09:30 FL cervical 2-3V Routine FL fluoroscopy <1hr Routine Hospital Course (1) Myelopathy concurrent with and due to spinal stenosis of cervical region: Patient was admitted to the hospital from my office with severe right arm pain and weakness proximally 1 week status post anterior cervical discectomy and fusion. I strongly suspected collapse of the cage. She underwent surgery the next day. Identified a severe endplate fracture of C7. Revised the fusion. Postop day 1 her arm symptoms were markedly improved. She is swallowing well. Arm strength and symptoms improved. TERESITA drain decreasing probably. Subsequently discharged home. Discharge orders instructions from the chart for further review. Total Time Total Time Spent Total Time Spent (In Minutes): 20 minutes Discharge Plan Discharge Items Patient Disposition: Home - Self-Care Reason For Visit: CERVICAL RADICULOPATHY Discharge Diagnosis: Cervical spinal stenosis with radiculopathy Activity: As commented below Non-emergency contact: Primary Care Provider Call non-emergency contact if: you have any medication questions Follow-up/Referrals: Royer Gutiérrez DO [Primary Care Provider] - Diet: Regular Addtl Attending Provider Instructions: ACTIVITY RECOMMENDATIONS: SELF CARE INSTRUCTIONS AFTER CERVICAL FUSIONS 1. No smoking. Smoking drastically decreases the chance of a solid fusion. 2. No bending, lifting more than 5 pounds, or twisting (roll like a log when turning in bed). 3. You may shower 3 days after surgery. Thoroughly dry wound. Do not soak in the tub. 4. Cervical collar: Must be worn at all times including sleeping. You may remove the brace only to bath, eat and if you are sitting in a recliner. 5. Please walk as much as you can for exercise. Gradually increase the distance that you walk as your endurance increases. SPECIAL CARE INSTRUCTIONS: VERY IMPORTANT TO READ AND REVIEW A. Do not take any anti-inflammatory medications (i.e. Indocin, Advil, Aspirin, Naprosyn, Aleve, Motrin, etc.) as these may inhibit the chance of a solid fusion. Tylenol is okay to take. B. Your surgical incision has been closed with a cosmetic suture under the skin that will dissolve in about 6 weeks. In 14 days, you can use a pair of clean scissors and cut the suture that is left outside of the skin at the ends of your incision. C. Complications are uncommon, but please contact us if you have any signs or symptoms of: 1. wound infection (fever higher than 102.5 degrees F, redness, separation of wound, drainage, or increasing pain from the incision) 2. blood clots in legs (pain, swelling, redness and warmth in legs) 3. urinary tract infection (fever higher than 102.5 degrees, burning upon urination or increased frequency of urination) 4. nerve problems (inability to walk on your toes or heels, numbness, loss of bowel or bladder control) 5. any other symptoms that concern you. D. Please call the office at if you have any concerns or questions about your operation or recovery. MANAGING PAIN AFTER SPINAL SURGERY 1. Narcotic medication is intended for short-term use and will be provided for surgical pain. Surgical pain usually lasts for a period of 4-6 weeks. Narcotic medication includes Percocet, Vicodin, Darvocet, Tylenol #3 or Lortab. 2. Longer-term pain is more appropriately treated with non-narcotic medication such as Tylenol ES. 3. Muscle spasm is not appropriately treated with narcotics. Muscle relaxers such as Soma, Flexeril or Skelaxin can be used along with Tylenol ES. 4. Remember that we all live with some "aches and pains". This is not unusual or uncommon after an injury or as we get older. 5. We will provide appropriate medication within the normal guidelines of their prescribed use. We will also be very cautious and aware of potential abuse and extended duration of patients' medication needs. 6. Please allow 2-3 days to process refills. Prescriptions will not be mailed but must be picked up at the office. FOLLOW UP VISIT: Keep your scheduled follow-up appointment. Any questions, please call the office at . Pending Studies at Discharge: No Stand-Alone Forms: My [facility] ideacts innovations, Smoking Cessation Medications and DC Order Prescriptions: New oxycodone 5 mg tablet 5 mg PO Q6H PRN (Reason: pain, severe) Qty: 10 RF: 0 Continued cyclobenzaprine 10 mg Tablet 10 mg PO HS PRN (Reason: Pain) RF: 0 aspirin 325 mg Tablet 650 mg PO DAILY PRN (Reason: Headache) RF: 0 Remicade 100 mg Recon Soln 100 mg IV DIRECTED RF: 0 oxycodone 5 mg tablet 5 mg PO Q6H PRN (Reason: pain, severe) Qty: 15 RF: 0 Discontinued methylprednisolone 4 mg tablets,dose pack 4 mg PO DIRECTED RF: 0 Discharge Orders: Discharge Order (Routine); Ordered 03/17/20 Ordered By: Juan Driscoll Admission Data Admit Date/Time: 03/15/20 11:47 Attending Provider: Juan Driscoll Admit Provider: Juan Driscoll Primary Care Provider: Royer Gutiérrez Other Providers: Kevin Enamorado
[2020-03-17] MEDS: HYDROmorphone INJ 0.5 MG/0.5 ML SYR IV PRN ×2 (10:41→13:42)
[2020-03-17] MEDS ORDERED: POLYETHYLENE (MIRALAX) 17 GM PACK PO SCH (12:03)
[2020-03-18] MEDS ORDERED: bisacodyL 10 MG SUPP PR PRN (12:03)
== END 2020-03-17 13:56 | disposition home or self-care (01) | DRG 473 ==
LOC: 3E 11:35

== ENCOUNTER 2020-04-04 15:05 | Inpatient (IN) ==
[2020-04-04] MEDS ORDERED: LORazepam 1 MG TAB PO PRN (15:38)
[2020-04-04] MEDS ORDERED: PROMETHAZINE HCL 12.5 MG in SODIUM CHLORIDE 0.9% 50 ML IV PRN (15:38)
[2020-04-04] MEDS ORDERED: OXYCODONE HCL IR 5 MG TAB (IMMEDIATE RELEASE) PO PRN (15:38)
[2020-04-04] MEDS ORDERED: HYDROmorphone INJ 0.5 MG/0.5 ML SYR IV PRN (15:38)
[2020-04-04] MEDS ORDERED: METOCLOPRAMIDE HCL INJ 5 MG/ML 2 ML VIAL IV PRN (15:38)
[2020-04-04] MEDS ORDERED: ACETAMINOPHEN 500 MG TAB PO PRN (15:38)
[2020-04-04] MEDS ORDERED: ONDANSETRON INJ 2 MG/ML 2 ML VIAL IV PRN (15:38)
[2020-04-04] MEDS ORDERED: HYDROmorphone INJ 1 MG/ML SYRINGE IV PRN (15:38)
[2020-04-04] MEDS ORDERED: ONDANSETRON 4 MG OD TAB PO PRN (15:38)
[2020-04-04] MEDS ORDERED: LORazepam 1 MG/2 ML VIAL IV PRN (15:38)
--- NOTE | 2020-04-04 16:18 | CT Scan Report ---
CT cervical spine wo con CT DOSE: 231.49 mGy.cm HISTORY: Pain. Neuropathy. neck and arm pain TECHNIQUE: Multiaxial CT images of the cervical spine were performed and reformatted in the sagittal and coronal plane without the use of contrast. A dose lowering technique was utilized adhering to e principles of ALARA. COMPARISON: None FINDINGS: Findings consistent with an anterior C6-C7 fusion. There is a C4-C5 fusion considered pre-e xisting. Straightening of the cervical curvature. Slight fullness of the prevertebral soft tissues most likely related to a small residual component of postoperative soft tissue edematous change. The vertebral b dieudonne stature is normal. Disc spaces are generally well preserved. The posterior elements appear intact . IMPRESSION: 1. Unremarkable postoperative changes to the cervical spine. 2. Hardware appears to be intact at all levels. 3. Muscle spasm with straightening of the cervical curvature. ACT 112: Negative or not required by law. The above report was generated using voice recognition software. It may contain grammatical, syntax or spelling errors. Electronically signed by: Kendall Joseph M.D. 04/04/2020 4:17 PM
[2020-04-04] MEDS: dexAMETHasone 8 MG in SYRINGE 0 ML IV SCH ×2 (16:50→23:40)
[2020-04-04] MEDS: LACTATED RINGER'S 1,000 ML IV SCH (16:55)
[2020-04-04] MEDS: NICOTINE 14 MG/24 HR PATCH TD SCH (17:37)
[2020-04-04] MEDS: HYDROmorphone INJ 1 MG/ML SYRINGE IV PRN ×3 (18:43→23:39)
[2020-04-04] MEDS: DOCUSATE SODIUM 100 MG CAP PO SCH (20:34)
[2020-04-04] MEDS: GABAPENTIN 300 MG CAP PO SCH (20:34)
[2020-04-05] MEDS: HYDROmorphone INJ 0.5 MG/0.5 ML SYR IV PRN ×3 (02:09→19:40)
[2020-04-05] MEDS: HYDROmorphone INJ 1 MG/ML SYRINGE IV PRN ×6 (05:34→21:53)
[2020-04-05] MEDS: LACTATED RINGER'S 1,000 ML IV SCH ×2 (05:34→18:10)
[2020-04-05] MEDS: NICOTINE 14 MG/24 HR PATCH TD SCH (07:57)
[2020-04-05] MEDS: dexAMETHasone 8 MG in SYRINGE 0 ML IV SCH (07:57)
[2020-04-05] MEDS: GABAPENTIN 300 MG CAP PO SCH ×3 (07:58→20:36)
[2020-04-05] MEDS: DOCUSATE SODIUM 100 MG CAP PO SCH ×2 (07:58→20:36)
--- NOTE | 2020-04-05 11:06 | History & Physical Report ---
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 Subsequently we discussed urgent revision anterior cervical surgery. It would require removal of the anterior cage removal of remainder of the C7 vertebral body and a subsequent corpectomy of C7 with fusion from C6-T1. Risk benefits pros cons and alternatives were outlined detail. Patient understands agrees. She will be made n.p.o. after midnight. Present on Admission?: Yes History of Present Illness Chief Complaint: Neck and bilateral arm pain Primary Care Provider: Royer Gutiérrez This is a 44-year-old female known to me the presents to my office yesterday afternoon with a marked decline in status. Over the past several days she began experiencing significant bilateral shoulder interscapular pain radiating down the left arm. She must hold her left arm in a shoulder abducted position to provide any relief. All medications failed to provide any improvement. She denies any precipitating trauma fall or event. Allergies Allergy/AdvReac Type Severity Reaction Status Date / Time ibuprofen Allergy Severe Swelling Verified 03/16/20 10:00 of Lip/Tongue/Throat tramadol [From Ultram] Allergy Intermediate Rash Verified 03/16/20 10:00 codeine AdvReac Intermediate GI SYMPTOMS Verified 03/16/20 10:00 morphine AdvReac Intermediate GI SYMPTOMS Verified 03/16/20 10:00 Home Medications Home Medications Medication Instructions Recorded Confirmed Type Remicade 100 mg IV DIRECTED 02/16/20 04/04/20 History aspirin 650 mg PO DAILY PRN 02/16/20 04/04/20 History cyclobenzaprine 10 mg PO HS PRN 02/16/20 04/04/20 History oxycodone 5 mg PO Q6H PRN #15 tab 03/09/20 04/04/20 Rx oxycodone 5 mg PO Q6H PRN #10 tab 03/16/20 04/04/20 Rx Past Med/Surg History Social History Preferred Language: Cameroonian Communication Ability: Effective 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 She does hold her left arm in a shoulder abducted position. She does exhibit reasonable strength testing but has breakaway weakness. Heart is regular in rhythm lungs clear to auscultation Results & Data Vital Signs (Past 12 Hours) Vital Signs Temp Pulse Resp BP Pulse Ox 04/05/20 07:53 37.1 C 72 18 119/78 94 04/04/20 23:26 36.7 C 83 18 136/77 95 Diagnostic Findings CAT scan of the cervical spine was obtained. It does demonstrate marked increased collapse of the intervertebral construct between C6 and C7. This is a marked change from her films postoperatively. Code Status & VTE Plan VTE Prophylaxis Plan VTE Prophylaxis will be ordered: Yes
[2020-04-06] MEDS: HYDROmorphone INJ 1 MG/ML SYRINGE IV PRN ×13 (01:44→23:35)
[2020-04-06] MEDS ORDERED: ROCURONIUM BROMIDE 10 MG/ML 5 ML VIAL ONE ×3 (06:50→08:19)
[2020-04-06] MEDS ORDERED: GLYCOPYRROLATE 0.2 MG/ML VIAL ONE (06:50)
[2020-04-06] MEDS ORDERED: NEOSTIGMINE METHYLSULFATE 5 MG/5 ML SYR ONE (06:50)
[2020-04-06] MEDS ORDERED: ONDANSETRON INJ 2 MG/ML 2 ML VIAL ONE (06:50)
[2020-04-06] MEDS ORDERED: PROPOFOL IV EMULSION 10 MG/ML 20 ML VIAL IV ONE (06:50)
[2020-04-06] MEDS ORDERED: LIDOCAINE HCL 2% 2 ML VIAL/AMP(20MG/ML) INFIL ONE (06:50)
[2020-04-06] MEDS ORDERED: MIDAZOLAM HCL 1 MG/ML 2ML VIAL ONE (06:50)
[2020-04-06] MEDS ORDERED: fentaNYL citrate 100 MCG/2 ML VIAL ONE ×2 (06:50→10:03)
[2020-04-06] MEDS ORDERED: ALBUT/IPRATROP 3MG/0.5MG NEB 3 ML VIAL NEB STA (06:51)
--- NOTE | 2020-04-06 06:54 | Anesthesiology Consultation ---
Date of Service April 06, 2020 Assessment & Plan (1) Encounter for pre-operative examination: Chart Review Chart Review: Acceptable Risk for Surgery Consults Requested none ASA ASA3 Proposed Anesthesia Anesthesia Type: General Risk / Benefits Reviewed With: PT / POA / Parent / Guardian, Accepts Plan and Informed Consent Obtained History Surgery Operation Date: 04/06/20 07:15 Proposed Procedures p Anterior Corpectomy C6, Spinal Cord Monitoring - Juan Driscoll, Height/Weight Height: 5 ft 3 in Weight: 68 kg Allergies Allergy/AdvReac Type Severity Reaction Status Date / Time ibuprofen Allergy Severe Swelling Verified 03/16/20 10:00 of Lip/Tongue/Throat tramadol [From Ultra] Allergy Intermediate Rash Verified 03/16/20 10:00 codeine AdvReac Intermediate GI SYMPTOMS Verified 03/16/20 10:00 morphine AdvReac Intermediate GI SYMPTOMS Verified 03/16/20 10:00 Medications Home Medications Medication Instructions Recorded Confirmed Last Taken Remicade 100 mg IV DIRECTED 02/16/20 04/04/20 01/26/20 aspirin 650 mg PO DAILY PRN 02/16/20 04/04/20 04/04/20 09:00 cyclobenzaprine 10 mg PO HS PRN 02/16/20 04/04/20 04/03/20 21:00 oxycodone 5 mg PO Q6H PRN #15 tab 03/09/20 04/04/20 03/15/20 oxycodone 5 mg PO Q6H PRN #10 tab 03/16/20 04/04/20 Unknown Active Medications Generic Name Dose Route Start Last Admin Trade Name Freq PRN Reason Stop Dose Admin Docusate Sodium 100 mg 04/04/20 21:00 04/05/20 20:36 Colace PO 05/04/20 20:59 100 mg BID TOBI Administration Gabapentin 300 mg 04/04/20 21:00 04/05/20 20:36 Neurontin PO 05/04/20 20:59 300 mg TID TOBI Administration Hydromorphone HCl 0.5 mg 04/04/20 18:30 04/05/20 19:40 Dilaudid IV 04/18/20 15:37 0.5 mg Q2HWA PRN Administration moderate pain (scale 4-6) Hydromorphone HCl 1 mg 04/04/20 18:30 04/06/20 01:44 Dilaudid IV 04/18/20 15:37 1 mg Q2HWA PRN Administration severe pain (scale 7-10) Lactated Ringer's 1,000 mls @ 75 mls/hr 04/04/20 15:45 04/05/20 18:10 Lr IV 05/04/20 15:44 75 mls/hr .[id number] TOBI Administration Lorazepam 1 mg 04/04/20 15:38 04/05/20 21:16 Ativan PO 05/04/20 15:37 1 mg Q6H PRN Administration Anxiety/spasms Miscellaneous 1 ea 04/05/20 08:59 04/05/20 07:57 Remove Nicoderm Patch N/A 05/05/20 08:58 1 ea [id number] TOBI Administration Nicotine 14 mg 04/04/20 17:00 04/05/20 07:57 Nicoderm Cq TD 05/04/20 16:59 14 mg QAM TOBI Administration NPO Date Last Intake of Fluids: 04/05/20 Time Last Intake of Fluids: 23:00 Date Last Intake of Solids: 04/05/20 Time Last Intake of Solids: 18:00 Exercise / Class Metabolic Activity II 4-5 Yardwork/Stairs/Walk up hill Past Anesthesia History No Hx of Anesthesia Complications and No Family Hx of Anesthesia Complications History of PONV No Hx of PONV and No Hx of Motion Sickness Social History Smoking Status: Former smoker tobacco type: cigarettes Smoking cigarettes per day: 20 Hx Alcohol Use: Yes Alcohol type: beer alcohol intake frequency: a few times a week Hx Substance Use: Yes substance use type: marijuana Last Used Substance: Hours (ago) Last Used Substance Other:: this morning Physical Exam Vital Signs Last Vital Signs Temp 98.1 F 04/06/20 06:16 Pulse 72 04/06/20 06:16 Resp 20 04/06/20 06:16 BP 116/76 04/06/20 06:16 Pulse Ox 97 04/06/20 06:16 ENMT Mouth: no dentition abnormality Thyromental Distance: > or= 3.5 Finger Breadths Mallampati Class: II Neck normal visual inspection and + limited neck extension Respiratory normal respiratory effort Auscultation: + wheezes Cardiovascular Rate/Rhythm: regular rate and regular rhythm Testing Laboratory Results Laboratory Tests 02/23/20 02/23/2020 10:58 10:58 10:58 WBC 9.09 Hgb 15.2 Plt Count 299 PT 10.4 INR 1.0 APTT 30.8 Sodium 138 Potassium 4.5 Chloride 106 Carbon Dioxide 29 BUN 10 Creatinine 0.65 Glucose 91 Electrocardiogram Date: 02/23/20 Normal sinus rhythm, rate 66 bpm Right atrial enlargement Borderline ECG When compared with ECG of 03-NOV-2013 12:31, No significant change was found Confirmed by Leon Santos ([id number]) on 02/23/2020 2:31:37 PM Chest X-Ray Date: 02/23/20 Findings: + NAD Other Testing CT cervical spine 04/04/20 IMPRESSION: 1. Unremarkable postoperative changes to the cervical spine. 2. Hardware appears to be intact at all levels. 3. Muscle spasm with straightening of the cervical curvature.
[2020-04-06] MEDS ORDERED: ONDANSETRON INJ 2 MG/ML 2 ML VIAL IV PRN ×2 (06:58→12:21)
[2020-04-06] MEDS ORDERED: ePHEDrine sulfate 50 MG/ML AMP IV PRN (06:58)
[2020-04-06] MEDS ORDERED: ATROPINE SULFATE 0.1 MG/ML 10ML SYR IV PRN (06:58)
[2020-04-06] MEDS ORDERED: fentaNYL citrate 100 MCG/2 ML VIAL IV PRN (06:58)
--- NOTE | 2020-04-06 07:13 | History & Physical Bridge Note ---
Date of Service April 06, 2020 History & Physical Bridge Note I have examined the patient, reviewed the History & Physical and in the interval since the performance of the History & Physical I have noted the following changes of clinical significance: no changes noted
[2020-04-06] MEDS ORDERED: CEFAZOLIN 2,000 MG/15 ML IV PUSH IV ONE (07:16)
[2020-04-06] MEDS ORDERED: BACITRACIN INJ 50,000 UNIT VIAL ONE (07:19)
[2020-04-06] MEDS ORDERED: DEXAMETHASONE SOD INJ 4 MG/ML VIAL ONE (07:55)
[2020-04-06] MEDS ORDERED: VANCOMYCIN HCL 1000MG/20ML VIAL ONE (08:12)
[2020-04-06] MEDS ORDERED: GENTAMICIN SULFATE 40 MG/ML 2 ML VIAL ONE (08:13)
[2020-04-06] MEDS ORDERED: FLOSEAL HEMOSTATIC MATRIX 10ML TOP ONE ×3 (08:59→09:57)
--- NOTE | 2020-04-06 10:02 | Operative Report ---
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 #2 anterior cervical corpectomy of C7. Occluding bilateral medial facetectomies and foraminotomies at C6-7 and C7-T1. #3 anterior cervical arthrodesis C6-T1. #4 23 mm peek cage #5 DBM and allograft chips C6-T1. #6 application of globus plate and screws with fixed screws C6-T1. 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 She is experiencing severe bilateral radiculopathy and subsequently we underwent urgent revision. Description of Procedure Patient was met with preoperatively case discussed all questions were addressed with number patient was taken back to the operative suite and after undergoing successful intubation by department of anesthesia was placed in supine position the Abhinav table on top of the Zoran frame. All bony prominences well-padded eyes inspected to ensure no external pressure placed upon. This point the anterior cervical spine was prepped and draped in a prone fashion. I did attempt exposure through the previous right anterior incision however marked scarring and adhesions vertically of the esophagus prompted me to approach to the left side. I did extend the incision to that region. Sharp sharp dissection with assistance of bipolar cautery was performed down to and exposing anterior cervical spine at C6-T1. Obvious fracture of the C7 vertebral body was noted. The anterior cervical plate and the interbody cage at C6-C7 was removed. I then performed a complete corpectomy of C7 exposing the uncovertebral joints bilaterally at C7-T1. Then performed bilateral foraminotomies C6-C7 and C7-T1 for complete decompression. The endplates were then burred to subcortical bleeding bone and a 23 mm peek cage filled with DBM and allograft chips was placed. A globus plate and screws were then applied. 15 round TERESITA drain inserted. Patient was then copiously irrigated and closed with 2 Vicryl in a fashion of 4 Monocryl for final skin closure. Steri-Strips dressings placed. Patient was awakened taken to PACU stable condition. Please note Mary Theodore was present at the entire procedure involved the patient positioning complex portions of the surgery and final skin closure. Lastly spinal cord monitoring was utilized that the procedure no changes noted. I attest to the content of the Intraoperative Record and any orders documented therein. Any exceptions are noted below.
[2020-04-06] MEDS ORDERED: HYDROmorphone INJ 2 MG/ML SYR/VIAL ONE (10:28)
--- NOTE | 2020-04-06 10:30 | Fluoroscopy Report ---
FL cervical 2-3V CLINICAL HISTORY: Corpectomy. COMPARISON STUDY: CT of the cervical spine April 04, 2020. FLUOROSCOPY TIME: 8.1 seconds. FLUOROSCOPIC IMAGES: 3 FINDINGS: These images demonstrate previous C4-C6 anterior discectomy and fusion. The C6-C7 Cage was removed. C7 corpectomy was performed. C6-T1 anterior fusion is noted. Fluoroscopy was provided for C6 corpectomy with anterior fusion. Alignment appears anatomic. Hardware is intact. IMPRESSION: Fluoroscopy provided for C7 corpectomy and C6-T1 anterior fusion. ACT 112: Negative or not required by law. Electronically signed by: Jose Zamora M.D. 04/06/2020 10:29 AM
[2020-04-06] MEDS ORDERED: PHENYLEPHRINE 100MCG/ML 5ML SYR ONE (11:35)
--- NOTE | 2020-04-06 11:52 | Anesthesiology Progress Note ---
Date of Service April 06, 2020 Anesthesia Post Procedure Vital Signs Vital Signs: Temp Pulse Pulse Resp BP Pulse Ox 04/06/20 11:45 69 18 146/90 H 96 04/06/20 11:35 59 L 12 127/70 94 04/06/20 11:25 97.7 F 62 17 119/75 94 04/06/20 11:15 71 15 137/96 93 04/06/20 11:05 70 21 145/75 H 94 04/06/20 10:55 68 16 141/86 H 97 04/06/20 10:45 71 21 128/86 100 04/06/20 10:38 97.3 F L 77 17 131/76 100 04/06/20 06:55 67 18 96 04/06/20 06:16 98.1 F 72 20 116/76 97 04/06/20 05:47 97.7 F 82 16 138/83 97 04/05/20 23:03 98.1 F 77 16 97/66 L 94 04/05/20 15:34 98.8 F 91 H 18 115/72 96 Pain Intensity Neck: Pain Intensity: 8 Bilateral Shoulder: Pain Intensity: 8 Anterior Neck: Pain Intensity: 5 Transfer of Care Handoff Completed per policy Notes Mental Status: alert / awake / arousable and participated in evaluation Patient Amnestic to Procedure: Yes Nausea / Vomiting: adequately controlled Pain: adequately controlled Airway Patency, RR, SpO2: stable & adequate BP & HR: stable & adequate Hydration State: stable & adequate Anesthetic Complications: no major complications apparent and Pt Satisfied with anesthetic care
[2020-04-06] MEDS ORDERED: DEXAMETHASONE SOD PHOSPHATE 8 MG in SYRINGE 0 ML IV PRN (12:21)
[2020-04-06] MEDS ORDERED: ALUMINUM/MAGNESIUM SUSP 30 ML UDC PO PRN (12:21)
[2020-04-06] MEDS ORDERED: DO NOT ADMINISTER PNEUMOCOCCAL VACCINE PRN (12:21)
[2020-04-06] MEDS ORDERED: RACEPINEPHRINE 2.25% NEBU SOLN 0.5 ML VIAL INH PRN (12:21)
[2020-04-06] MEDS ORDERED: FAMOTIDINE 20 MG TAB PO PRN (12:21)
[2020-04-06] MEDS ORDERED: PROMETHAZINE HCL 12.5 MG in SODIUM CHLORIDE 0.9% 50 ML IV PRN (12:21)
[2020-04-06] MEDS ORDERED: ACETAMINOPHEN 1,000 MG/100 ML VIAL IV PRN (12:21)
[2020-04-06] MEDS ORDERED: SOD PHOSPHATE/SOD BIPHOSPHATE ENEMA 132 ML BTL PR PRN (12:21)
[2020-04-06] MEDS ORDERED: METOCLOPRAMIDE HCL INJ 5 MG/ML 2 ML VIAL IV PRN (12:21)
[2020-04-06] MEDS ORDERED: ONDANSETRON 4 MG OD TAB PO PRN (12:21)
[2020-04-06] MEDS ORDERED: NALOXONE HCL 0.4 MG/1 ML VIAL/CARP IV PRN (12:21)
[2020-04-06] MEDS ORDERED: DO NOT ADMINISTER FLU VACCINE PRN (12:21)
[2020-04-06] MEDS ORDERED: MAGNESIUM HYDROXIDE SUSP 30 ML UDC PO PRN (12:21)
[2020-04-06] MEDS: NICOTINE 14 MG/24 HR PATCH TD SCH (12:22)
[2020-04-06] MEDS: GABAPENTIN 300 MG CAP PO SCH (13:00)
[2020-04-06] MEDS: DOCUSATE SODIUM 100 MG CAP PO SCH (13:00)
[2020-04-06] MEDS: LACTATED RINGER'S 1,000 ML IV SCH ×3 (13:00→22:04)
[2020-04-06] MEDS: CEFAZOLIN 2000MG 2,000 MG/15 ML SYR IV SCH ×2 (15:52→23:35)
[2020-04-06] MEDS: DOCUSATE SODIUM/SENNA 50/8.6MG TAB PO SCH (20:39)
[2020-04-06] MEDS: LORazepam 0.5 MG TAB PO PRN (22:04)
[2020-04-07] MEDS: HYDROmorphone INJ 1 MG/ML SYRINGE IV PRN ×7 (02:30→23:35)
[2020-04-07] MEDS: HYDROmorphone INJ 0.5 MG/0.5 ML SYR IV PRN ×2 (02:51→06:42)
[2020-04-07 05:10] LABS: Basophils # (auto) 0.02 K/uL (0-0.2); Basophils % (auto) 0.2 %; Eosinophils # (auto) 0.02 K/uL (0-0.5); Eosinophils % (auto) 0.2 %; Hematocrit (blood only) 37.6 % (37-47); Hemoglobin 12.3 g/dL (12.0-16.0); Immature Granulocytes # (auto) 0.01 K/uL (0.00-0.02); Immature Granulocytes % (auto) 0.1 %; Lymphocytes # (auto) 3.29 K/uL (1.2-3.4); Lymphocytes % (auto) 32.8 %; Mean Corpuscular Hemoglobin 30.2 pg (25-34); Mean Corpuscular Hgb Conc 32.7 g/dL (32-36); Mean Corpuscular Volume 92.4 fL (80-100); Mean Platelet Volume 8.6 fL (7.4-10.4); Monocytes # (auto) 0.59 K/uL (0.11-0.59); Monocytes % (auto) 5.9 %; Neutrophils % (auto) 60.8 %; Platelet Count 272 K/uL (130-400); RDW Coefficient of Variation 13.3 % (11.5-14.5); RDW Standard Deviation 44.9 fL (36.4-46.3); Red Blood Count 4.07 M/uL (4.2-5.4); White Blood Count 10.03 K/uL (4.8-10.8)
[2020-04-07 05:33] LABS: BUN Creatinine Ratio 13.4 (10-20); Creatinine Clr Calc Pharmacy 114.2 ml/min; Est GFR (African American) 128.9; Est GFR (Non-African American) 111.2; Potassium 3.4 mmol/L (3.5-5.1)
[2020-04-07] MEDS: ACETAMINOPHEN 500 MG TAB PO PRN (08:23)
[2020-04-07] MEDS ORDERED: KETOROLAC TROMETHAMINE 15 MG/ML VIAL IV ONE (08:55)
[2020-04-07] MEDS: NICOTINE 14 MG/24 HR PATCH TD SCH (09:01)
[2020-04-07] MEDS: HYDROmorphone INJ 1 MG/ML SYRINGE IV STA ×2 (09:19→09:35)
[2020-04-07] MEDS: POLYETHYLENE (MIRALAX) 17 GM PACK PO SCH ×2 (09:43→15:54)
--- NOTE | 2020-04-07 10:44 | XRay Report ---
XR cervical spine 2 or 3V CLINICAL HISTORY: Arms burning and severe pain COMPARISON STUDY: Cervical spine CT April 04, 2020. Fluoroscopic images of the cervical spine April 06. FINDINGS: These images demonstrate C4-C5 and C5-C6 discectomies with interbody fusion. There is also evidence for a C7 corpectomy with C6-T1 anterior plate and screw fusion. Surgical drain is in place. There are no unexpected radiopaque foreign bodies. Prominence of the prevertebral soft tissues at the C4-C5 levels is unchanged from prior CT. No acute fracture is identified. IMPRESSION: 1. Expected findings following C7 corpectomy and C6-T1 fusion. Surgical drain in place. 2. Previous C4-C5 and C5-C6 discectomies with interbody fusion. ACT 112: Negative or not required by law. Electronically signed by: Jose Zamora M.D. 04/07/2020 10:43 AM
[2020-04-07] MEDS: LORazepam 0.5 MG/1 ML VIAL IV PRN ×2 (11:00→20:20)
[2020-04-07] MEDS: GABAPENTIN 300 MG CAP PO SCH ×2 (13:34→20:30)
[2020-04-07] MEDS: DEXAMETHASONE SOD PHOSPHATE 8 MG in SYRINGE 0 ML IV SCH ×2 (13:35→22:17)
--- NOTE | 2020-04-07 14:51 | Orthopedic Progress Note ---
Date of Service April 07, 2020 Assessment & Plan (1) Myelopathy concurrent with and due to spinal stenosis of cervical region: This time we will initiate Neurontin as well as Decadron. Suspect she is still having some swelling from her surgery. Will undergo light activity. Maintain her TERESITA drain. Present on Admission?: Yes Admission and Anticipated Discharge Date Admission Date: April 04, 2020 Subjective Patient has marked improvement of her severe left arm pain. Nevertheless she is struggling with some burning in the shoulders and upper back with activity. She is comfortable at rest. She has been ambulating to the bathroom. Physical Exam Physical Exam: On exam she has good strength testing is comfortable at this time. Results & Data ([facility]) Vital Signs (Past 12 Hours) Vital Signs Temp Pulse Resp BP BP Pulse Ox 04/07/20 11:35 67 18 96 04/07/20 11:04 36.5 C 18 111/71 96 04/07/20 08:25 36.3 C L 78 24 171/111 H 95 04/07/20 07:41 83 16 92 04/07/20 06:15 36.9 C 73 18 151/87 H 92 04/07/20 05:15 36.9 C 77 18 117/70 92 04/07/20 03:41 63 14 91
[2020-04-07] MEDS ORDERED: Nursing to Pharmacy Communication ONE (20:26)
[2020-04-07] MEDS: DOCUSATE SODIUM/SENNA 50/8.6MG TAB PO SCH (20:29)
[2020-04-08] MEDS: HYDROmorphone INJ 1 MG/ML SYRINGE IV PRN ×4 (03:28→13:47)
[2020-04-08] MEDS: DEXAMETHASONE SOD PHOSPHATE 8 MG in SYRINGE 0 ML IV SCH ×3 (05:48→21:59)
[2020-04-08] MEDS: NICOTINE 14 MG/24 HR PATCH TD SCH (08:37)
[2020-04-08] MEDS: GABAPENTIN 300 MG CAP PO SCH ×3 (08:37→19:50)
[2020-04-08] MEDS ORDERED: bisacodyL 10 MG SUPP PR PRN (10:04)
--- NOTE | 2020-04-08 10:42 | Orthopedic Progress Note ---
Date of Service April 08, 2020 Assessment & Plan (1) Myelopathy concurrent with and due to spinal stenosis of cervical region: At this time she is going to mobilize as tolerated. She will wear her cervical collar at all times when out of bed and ambulating. We discussed possible posterior cervical stabilization. We are tentatively planning this for Saturday. Present on Admission?: Yes Admission and Anticipated Discharge Date Admission Date: April 04, 2020 Subjective Patient's arm symptoms are steadily improving. She is swallowing well. No hoarseness. Still struggling with pain and burning radiating into the shoulders. Physical Exam Physical Exam: On exam she has excellent strength testing of bilateral upper and lower extremities. Sensory intact to cold and light touch bilateral upper and lower extremities. Results & Data ([facility]) Vital Signs (Past 12 Hours) Vital Signs Temp Pulse Resp BP Pulse Ox 04/08/20 07:49 64 18 94 04/08/20 07:00 36.4 C L 70 18 135/85 95 04/08/20 03:35 60 18 97 04/08/20 03:15 36.5 C 61 16 148/90 H 95 04/07/20 23:15 36.4 C L 62 18 147/84 H 94 04/07/20 23:14 61 14 94
[2020-04-08] MEDS: HYDROmorphone INJ 0.5 MG/0.5 ML SYR IV PRN ×3 (11:27→19:50)
[2020-04-08] MEDS: DOCUSATE SODIUM/SENNA 50/8.6MG TAB PO SCH (21:57)
[2020-04-09] MEDS: HYDROmorphone INJ 0.5 MG/0.5 ML SYR IV PRN ×4 (01:10→10:27)
[2020-04-09] MEDS: DEXAMETHASONE SOD PHOSPHATE 8 MG in SYRINGE 0 ML IV SCH (04:59)
[2020-04-09] MEDS: OXYCODONE HCL IR 5 MG TAB (IMMEDIATE RELEASE) PO PRN ×2 (06:46→19:10)
[2020-04-09] MEDS: ACETAMINOPHEN 500 MG TAB PO PRN ×2 (08:47→19:10)
[2020-04-09] MEDS: NICOTINE 14 MG/24 HR PATCH TD SCH (08:48)
[2020-04-09] MEDS: GABAPENTIN 300 MG CAP PO SCH ×3 (08:48→20:14)
[2020-04-09] MEDS: LORazepam 0.5 MG TAB PO PRN ×2 (08:55→22:15)
--- NOTE | 2020-04-09 10:06 | Orthopedic Progress Note ---
Date of Service April 09, 2020 Assessment & Plan (1) Myelopathy concurrent with and due to spinal stenosis of cervical region: This time I will discuss we will discontinue her drain today. She may shower today. We will plan for surgery Saturday. Present on Admission?: Yes Admission and Anticipated Discharge Date Admission Date: April 04, 2020 Subjective Patient complaining of some right shoulder pain. This began this morning. Otherwise she is steadily improving. Having much less symptoms of numbness and tingling. Physical Exam Physical Exam: On exam she does appear more comfortable. Strength intact detailed testing. Results & Data ([facility]) Vital Signs (Past 12 Hours) Vital Signs Temp Pulse Resp BP BP Pulse Ox 04/09/20 08:00 36.6 C 59 L 18 130/80 95 04/09/20 07:29 67 16 98 04/09/20 04:00 36.5 C 69 18 129/75 97 04/09/20 03:03 74 16 94 04/08/20 23:57 59 L 18 97 04/08/20 23:20 36.5 C 59 L 18 117/69 97
[2020-04-09] MEDS: HYDROmorphone INJ 1 MG/ML SYRINGE IV PRN ×3 (14:30→21:11)
[2020-04-09] MEDS: DOCUSATE SODIUM/SENNA 50/8.6MG TAB PO SCH (20:21)
[2020-04-10] MEDS: HYDROmorphone INJ 1 MG/ML SYRINGE IV PRN ×4 (01:12→11:29)
[2020-04-10] MEDS: NICOTINE 14 MG/24 HR PATCH TD SCH (08:02)
[2020-04-10] MEDS: GABAPENTIN 300 MG CAP PO SCH ×3 (08:53→21:57)
[2020-04-10] MEDS ORDERED: DEXAMETHASONE SOD PHOSPHATE 8 MG in SYRINGE 0 ML IV SCH (09:00)
[2020-04-10] MEDS: OXYCODONE HCL IR 5 MG TAB (IMMEDIATE RELEASE) PO PRN (09:03)
[2020-04-10] MEDS: LORazepam 0.5 MG TAB PO PRN (09:03)
[2020-04-10] MEDS ORDERED: NALOXONE HCL 0.4 MG/1 ML VIAL/CARP IV PRN ×2 (11:21→11:32)
--- NOTE | 2020-04-10 11:32 | Orthopedic Progress Note ---
Date of Service April 10, 2020 Assessment & Plan (1) Myelopathy concurrent with and due to spinal stenosis of cervical region: This time we will initiate a NURSING HOME ASSISTANT for additional pain control. Will change Decadron to 8 mg every 8 hours. She will be made n.p.o. after midnight for posterior cervical surgery tomorrow. Present on Admission?: Yes Admission and Anticipated Discharge Date Admission Date: April 04, 2020 Subjective Patient has increased pain in the bilateral shoulders and occasionally down the arms today. This is worsened from yesterday. She has been up and ambulating. She is urinating without difficulty. No bowel movement yet. Physical Exam Physical Exam: On exam she is obvious distress. She does demonstrate good strength testing. Sensory symmetric and intact. Results & Data ([facility]) Vital Signs (Past 12 Hours) Vital Signs Temp Pulse Resp BP Pulse Ox 04/10/20 11:20 86 18 98 04/10/20 07:32 93 H 16 98 04/10/20 07:08 37.2 C 73 18 109/73 96 04/10/20 03:34 63 16 97
[2020-04-10] MEDS: SODIUM CHLORIDE 0.9% 1000ML 1,000 ML IV SCH (13:05)
[2020-04-10] MEDS: HYDROmorphone PCA 30 MG/30 ML IV PRN (13:18)
[2020-04-10] MEDS: DEXAMETHASONE SOD PHOSPHATE 8 MG in SYRINGE 0 ML IV SCH ×2 (14:16→22:06)
[2020-04-10] MEDS: DOCUSATE SODIUM/SENNA 50/8.6MG TAB PO SCH (21:57)
[2020-04-11] MEDS: DEXAMETHASONE SOD PHOSPHATE 8 MG in SYRINGE 0 ML IV SCH ×3 (06:17→22:17)
[2020-04-11] MEDS ORDERED: ROCURONIUM BROMIDE 10 MG/ML 5 ML VIAL ONE ×2 (06:55→13:22)
[2020-04-11] MEDS: GABAPENTIN 300 MG CAP PO SCH ×4 (08:46→19:35)
[2020-04-11] MEDS: NICOTINE 14 MG/24 HR PATCH TD SCH ×2 (08:46→19:35)
--- NOTE | 2020-04-11 09:29 | History & Physical Bridge Note ---
Date of Service April 11, 2020 History & Physical Bridge Note I have examined the patient, reviewed the History & Physical and in the interval since the performance of the History & Physical I have noted the following changes of clinical significance: no changes noted Plan for posterior cervical fusion C5-T2 with possible decompression C6-C7
[2020-04-11] MEDS ORDERED: CEFAZOLIN 2,000 MG/15 ML IV PUSH IV ONE (09:41)
[2020-04-11] MEDS ORDERED: CEFAZOLIN 2000MG 2,000 MG/15 ML SYR IV ONE (09:44)
[2020-04-11] MEDS ORDERED: BACITRACIN OINT 15 GM TUBE ONE (10:05)
[2020-04-11] MEDS ORDERED: BUPIVACAINE/EPINEPHRINE 0.5% MPF 1:200,000 10 ML VIAL ONE (10:06)
[2020-04-11] MEDS ORDERED: BACITRACIN INJ 50,000 UNIT VIAL ONE (10:06)
--- NOTE | 2020-04-11 10:09 | Anesthesiology Consultation ---
Date of Service April 11, 2020 Assessment & Plan (1) Encounter for pre-operative examination: Chart Review Chart Review: Acceptable Risk for Surgery and Patient NOT seen in Pre Admission Testing Consults Requested none ASA ASA3 Proposed Anesthesia Anesthesia Type: General Risk / Benefits Reviewed With: PT / POA / Parent / Guardian, Accepts Plan and Informed Consent Obtained History Surgery Operation Date: 04/06/20 07:15 Proposed Procedures p Anterior Corpectomy C6, Spinal Cord Monitoring - Juan Driscoll DO Operation Date: 04/11/20 10:30 Proposed Procedures p C5-T1 Posterior Cervical Fusion, Spinal Cord Monitoring - Juan Driscoll DO Height/Weight Height: 5 ft 3 in Weight: 68 kg Allergies Allergy/AdvReac Type Severity Reaction Status Date / Time ibuprofen Allergy Severe Swelling Verified 03/16/20 10:00 of Lip/Tongue/Throat tramadol [From Ultram] Allergy Intermediate Rash Verified 03/16/20 10:00 codeine AdvReac Intermediate GI SYMPTOMS Verified 03/16/20 10:00 morphine AdvReac Intermediate GI SYMPTOMS Verified 03/16/20 10:00 Medications Home Medications Medication Instructions Recorded Confirmed Last Taken Remicade 100 mg IV DIRECTED 02/16/20 04/04/20 01/26/20 aspirin 650 mg PO DAILY PRN 02/16/20 04/04/20 04/04/20 09:00 cyclobenzaprine 10 mg PO HS PRN 02/16/20 04/04/20 04/03/20 21:00 oxycodone 5 mg PO Q6H PRN #15 tab 03/09/20 04/04/20 03/15/20 oxycodone 5 mg PO Q6H PRN #10 tab 03/16/20 04/04/20 Unknown oxycodone 5 mg PO Q6H PRN #20 tab 04/06/20 Unknown Active Medications Generic Name Dose Route Start Last Admin Trade Name Freq PRN Reason Stop Dose Admin Acetaminophen 1,000 mg 04/06/20 12:21 04/09/20 19:10 Tylenol PO 05/06/20 12:20 1,000 mg Q8H PRN Administration MILD Pain Scale 1,2,3 & Pre PT Al Hydrox/Mg Hydrox/Simethicone 30 ml 04/06/20 12:21 04/10/20 01:12 Maalox PO 05/06/20 12:20 30 ml Q6H PRN Administration Dyspepsia Gabapentin 300 mg 04/07/20 14:00 04/11/20 08:46 Neurontin PO 05/07/20 13:59 Not Given TID TOBI Hydromorphone HCl 30 mg 04/10/20 11:32 04/10/20 13:18 IV 04/24/20 11:31 30 mg PRN PRN Administration PARASITOLOGY TEACHER Pain Titration Protocol Hydroxyzine HCl 25 mg 04/06/20 12:21 04/10/20 11:50 Vistaril PO 05/06/20 12:20 25 mg Q8H PRN Administration Anxiety Lorazepam 0.5 mg in 1 mls @ 1 mls/min 04/06/20 12:21 04/07/20 20:20 Ativan IV 05/06/20 12:20 1 mls/min Q8H PRN Administration Sedation/Anxiety Sodium Chloride 1,000 mls @ 15 mls/hr 04/10/20 11:30 04/11/20 06:59 Nss 1000ml IV 04/24/20 11:22 15 mls/hr .Q24H TOBI Infusion Dexamethasone Sodium Phosphate 2 mls @ 1 mls/min 04/10/20 14:00 04/11/20 06:17 8 mg/ Syringe IV 05/10/20 13:59 1 mls/min Q8H TOBI Administration Lorazepam 0.5 mg 04/06/20 12:21 04/10/20 09:03 Ativan PO 05/06/20 12:20 0.5 mg Q8H PRN Administration sedation/anxiety Magnesium Hydroxide 30 ml 04/06/20 12:21 04/10/20 15:06 Milk Of Magnesia PO 05/06/20 12:20 30 ml Q24H PRN Administration Constipation Miscellaneous 1 ea 04/05/20 08:59 04/11/20 08:46 Remove Nicoderm Patch N/A 05/05/20 08:58 1 ea [id number] TOBI Administration Nicotine 14 mg 04/04/20 17:00 04/11/20 08:46 Nicoderm Cq TD 05/04/20 16:59 14 mg QAM TOBI Administration Oxycodone HCl 5 - 10 mg 04/06/20 12:21 04/10/20 09:03 Roxicodone Immediate Rel PO 04/20/20 12:20 10 mg Q4H PRN Administration Pain & Pre PT Senna/Docusate Sodium 2 tab 04/06/20 21:00 04/10/20 21:57 Senokot S PO 05/06/20 20:59 2 tab HS TOBI Administration NPO Date Last Intake of Fluids: 04/10/20 Time Last Intake of Fluids: 22:00 Last Intake of Fluids Comment: sips and chips per npo order Date Last Intake of Solids: 04/10/20 Time Last Intake of Solids: 22:00 Past Medical History Medical History Bulging of cervical intervertebral disc Cardiac murmur Not noted on exam at PAT. 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 Attempted to obtain stress test patient reported was done but unable to obtain. Exercise / Class Metabolic Activity III < 4 Walking/Shop/Light housework Past Family History Family History Uncle Family history of diabetes mellitus Past Surgical History Surgical History History of back surgery X8 LOWER History of colonoscopy Hx of cervical spine surgery Hx of cholecystectomy Hx of tubal ligation Past Anesthesia History No Hx of Anesthesia Complications History of PONV No Hx of PONV Social History Smoking Status: Former smoker tobacco type: cigarettes Smoking cigarettes per day: 20 Hx Alcohol Use: Yes Alcohol type: beer alcohol intake frequency: a few times a week Hx Substance Use: Yes substance use type: marijuana Last Used Substance: Hours (ago) Last Used Substance Other:: this morning Review of Systems Negative for chest pain or shortness of breath. Patient denies active symptoms of GERD. Physical Exam Vital Signs Last Vital Signs Temp 36.5 C 04/11/20 09:08 Pulse 56 L 04/11/20 09:08 Resp 18 04/11/20 09:08 BP 129/79 04/11/20 09:08 Pulse Ox 96 04/11/20 09:08 Constitutional not obese ENMT Mouth: no TMJ abnormality and oral opening not small Thyromental Distance: < 3.5 Finger Breadths Mallampati Class: II Mouth / Teeth: 1. Loose Neck normal visual inspection and + limited neck extension (Recent anterior neck surgery) Respiratory normal respiratory effort Auscultation: lungs clear to auscultation bilaterally Cardiovascular Rate/Rhythm: regular rate and regular rhythm Heart Sounds: no murmur Neurologic moves all extremities Motor/Sensory: + sensory deficit Psychiatric Orientation: alert and oriented x 3 Testing Laboratory Results 04/07/20 05:01 04/07/20 05:01 Blood Type O Positive 04/10/20 05:53 Antibody Screen NEGATIVE 04/10/20 05:53 Electrocardiogram Date: 02/23/20 Normal sinus rhythm, rate 66 bpm Right atrial enlargement Borderline ECG When compared with ECG of 03-NOV-2013 12:31, No significant change was found Confirmed by Leon Santos ([id number]) on 02/23/2020 2:31:37 PM Chest X-Ray Date: 02/23/20 Findings: + NAD Other Testing CT cervical spine 04/04/20 IMPRESSION: 1. Unremarkable postoperative changes to the cervical spine. 2. Hardware appears to be intact at all levels. 3. Muscle spasm with straightening of the cervical curvature.
[2020-04-11] MEDS ORDERED: DEXAMETHASONE SOD INJ 4 MG/ML VIAL ONE (10:13)
[2020-04-11] MEDS ORDERED: MIDAZOLAM HCL 1 MG/ML 2ML VIAL ONE ×2 (10:13→14:10)
[2020-04-11] MEDS ORDERED: LIDOCAINE HCL 2% 2 ML VIAL/AMP(20MG/ML) INFIL ONE (10:13)
[2020-04-11] MEDS ORDERED: ONDANSETRON INJ 2 MG/ML 2 ML VIAL ONE ×2 (10:13→12:25)
[2020-04-11] MEDS ORDERED: PROPOFOL IV EMULSION 10 MG/ML 20 ML VIAL IV ONE (10:13)
[2020-04-11] MEDS ORDERED: NEOSTIGMINE METHYLSULFATE 5 MG/5 ML SYR ONE (10:13)
[2020-04-11] MEDS ORDERED: fentaNYL citrate 100 MCG/2 ML VIAL ONE ×2 (10:13→14:05)
[2020-04-11] MEDS ORDERED: GLYCOPYRROLATE 0.2 MG/ML VIAL ONE ×2 (10:13→13:58)
[2020-04-11] MEDS ORDERED: SODIUM CHLORIDE 0.9% INJ 10 ML VIAL ONE (10:14)
[2020-04-11] MEDS ORDERED: HYDROmorphone INJ 2 MG/ML SYR/VIAL ONE ×3 (10:14→14:08)
[2020-04-11] MEDS ORDERED: LARYING-O-JET KIT (LTA) ONE (10:14)
[2020-04-11] MEDS ORDERED: ONDANSETRON INJ 2 MG/ML 2 ML VIAL IV PRN ×2 (10:15→15:56)
[2020-04-11] MEDS ORDERED: ATROPINE SULFATE 0.1 MG/ML 10ML SYR IV PRN (10:15)
[2020-04-11] MEDS ORDERED: ePHEDrine sulfate 50 MG/ML AMP IV PRN (10:15)
[2020-04-11] MEDS ORDERED: HYDROmorphone INJ 2 MG/ML SYR/VIAL IV PRN (10:15)
[2020-04-11] MEDS ORDERED: LIDOCAINE 2% JELLY 5 ML TUBE ONE (10:22)
[2020-04-11] MEDS ORDERED: PROPOFOL IV EMULSION 10 MG/ML 100 ML VIAL IV ONE (11:20)
[2020-04-11] MEDS ORDERED: ePHEDrine sulfate 50 MG/ML SYR ONE (12:20)
[2020-04-11] MEDS ORDERED: PHENYLEPHRINE 100MCG/ML 5ML SYR ONE (12:26)
[2020-04-11] MEDS ORDERED: SUGAMMADEX SODIUM 200 MG/2 ML VIAL IV ONE (12:54)
[2020-04-11] MEDS ORDERED: FLOSEAL HEMOSTATIC MATRIX 10ML TOP ONE (13:24)
--- NOTE | 2020-04-11 13:33 | Operative Report ---
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 #2 posterior cervical fusion C5-T3. #3 placement posterior segmental instrumentation using globus rods and screws at C5-T3. #4 placement locally harvested morselized autograft in the posterior lateral gutters and lamina. #5 placement his collagen sponge combined with master graft in the posterior lateral gutters and lamina see 5 to T3. Surgeon Juan Driscoll DO [employer] Shrinker Mary Theodore Estimated Blood Loss 250 Findings Consistent with Post-Op Diagnosis Specimens None Indications This is a 44-year-old female known to me the presents with collapse of the C7 vertebral body after an anterior cervical discectomy and fusion ultimately requiring a corpectomy of see 7. Secondary to her bone quality he continued myeloradiculopathy and we decided to perform a posterior decompression and fusion. Description of Procedure Patient was met with preop the case cussed questions dressed with number patient was taken back to the operative suite underwent an patient placed in a prone position on the Abhinav table with the head in the three-pronged Moseley head of business development. All bony prominences were well-padded eyes inspected to ensure no external pressure placed upon them. This point the cervical thoracic spine was prepped and draped in normal sterile fashion. Sharp dissection with the assistance of Bovie cautery was performed down to and exposing the lamina lateral masses and transverse processes of C5-C6 and C7 T1-T2 and T3. Lateral mass screws were then placed in C5 and C6 and C7 as well as pedicle screws placed in T2 and T3. Then performed complete laminectomy of C7 partial laminectomy of C 6. Process linden was then locked in the place. Lateral masses facet joints and transverse processes from C5-T3 were then burred to subcortical bone. Infuse collagen sponge master graft local autograft was placed in posterior gutters. 15 round TERESITA drain inserted. Incision was then closed with 1 Vicryl the fascia 2-0 Vicryl subcutaneously and 4 Monocryl for final skin closure. Steri-Strip sterile dressings placed. Patient was then awakened taken to PACU stable condition. Please note Mary Theodore was present at the entire procedure involved the patient positioning complex portions of the surgery and final skin closure. Lastly spinal cord monitoring was utilized throughout the procedure and no changes noted. I attest to the content of the Intraoperative Record and any orders documented therein. Any exceptions are noted below.
--- NOTE | 2020-04-11 13:57 | Fluoroscopy Report ---
FL cervical 2-3V HISTORY: 44 years-old Female C5-T1 POSTERIOR CERVICAL FUSION chronic neck pain COMPARISON: Cervical spine radiographs 04/07/2020 TECHNIQUE: 2 spot fluoroscopic images of the cervical spine were obtained utilizing 60.1 seconds fluo roscopy time FINDINGS: Extensive posterior interbody linden and screw fusion hardware is noted at what is labeled the C5-T3 lev els. Exact numbering of the segments is difficult on these limited images submitted. Anterior plate a nd screw fusion hardware of the lower cervical spine redemonstrated along with mid and lower cervical spine discectomy changes. Hardware appears to be intact. IMPRESSION: Fluoroscopic assistance as above. Please see operative report for further details. ACT 112: Negative or not required by law. The above report was generated using voice recognition software. It may contain grammatical, syntax o r spelling errors. Electronically signed by: Oracio Manrique M.D. 04/11/2020 1:56 PM
[2020-04-11] MEDS: fentaNYL citrate 100 MCG/2 ML VIAL IV PRN ×2 (14:56→15:01)
--- NOTE | 2020-04-11 14:59 | Anesthesiology Progress Note ---
Date of Service April 11, 2020 Anesthesia Post Procedure Vital Signs Vital Signs: Temp Pulse Pulse Resp BP Pulse Ox 04/11/20 14:30 36.8 C 60 14 127/83 99 04/11/20 14:20 36.3 C L 54 L 14 129/84 100 04/11/20 14:13 36.3 C L 72 12 153/99 H 100 04/11/20 09:08 36.5 C 56 L 18 129/79 96 04/11/20 07:50 62 16 98 04/11/20 07:20 36.7 C 59 L 16 126/73 96 04/11/20 03:34 36.6 C 59 L 16 110/73 94 04/11/20 03:10 55 L 16 94 04/10/20 23:34 36.7 C 62 16 114/70 94 04/10/20 23:05 66 16 96 04/10/20 18:40 103 H 16 97 04/10/20 17:09 37 C 69 14 114/69 95 04/10/20 16:16 70 14 128/83 97 04/10/20 15:21 84 14 97 04/10/20 15:01 36.7 C 78 12 109/74 97 Pain Intensity Neck: Pain Intensity: 8 Bilateral Shoulder: Pain Intensity: 0 Anterior Neck: Pain Intensity: 0 Right Shoulder: Pain Intensity: 3 Transfer of Care Handoff Completed per policy Notes Mental Status: alert / awake / arousable and participated in evaluation Patient Amnestic to Procedure: Yes Nausea / Vomiting: adequately controlled Pain: adequately controlled Airway Patency, RR, SpO2: stable & adequate BP & HR: stable & adequate Hydration State: stable & adequate Anesthetic Complications: no major complications apparent and Pt Satisfied with anesthetic care
[2020-04-11] MEDS ORDERED: DO NOT ADMINISTER PNEUMOCOCCAL VACCINE PRN (15:56)
[2020-04-11] MEDS ORDERED: FAMOTIDINE 20 MG TAB PO PRN (15:56)
[2020-04-11] MEDS ORDERED: ALUMINUM/MAGNESIUM SUSP 30 ML UDC PO PRN (15:56)
[2020-04-11] MEDS ORDERED: DEXAMETHASONE SOD PHOSPHATE 8 MG in SYRINGE 0 ML IV PRN (15:56)
[2020-04-11] MEDS ORDERED: RACEPINEPHRINE 2.25% NEBU SOLN 0.5 ML VIAL INH PRN (15:56)
[2020-04-11] MEDS ORDERED: DO NOT ADMINISTER FLU VACCINE PRN (15:56)
[2020-04-11] MEDS ORDERED: METOCLOPRAMIDE HCL INJ 5 MG/ML 2 ML VIAL IV PRN (15:56)
[2020-04-11] MEDS ORDERED: PROMETHAZINE HCL 12.5 MG in SODIUM CHLORIDE 0.9% 50 ML IV PRN (15:56)
[2020-04-11] MEDS ORDERED: ONDANSETRON 4 MG OD TAB PO PRN (15:56)
[2020-04-11] MEDS ORDERED: LORazepam 0.5 MG/1 ML VIAL IV PRN (15:56)
[2020-04-11] MEDS ORDERED: NALOXONE HCL 0.4 MG/1 ML VIAL/CARP IV PRN (15:56)
[2020-04-11] MEDS ORDERED: MAGNESIUM HYDROXIDE SUSP 30 ML UDC PO PRN (15:56)
[2020-04-11] MEDS ORDERED: SOD PHOSPHATE/SOD BIPHOSPHATE ENEMA 132 ML BTL PR PRN (15:56)
[2020-04-11] MEDS: LACTATED RINGER'S 1,000 ML IV SCH (16:30)
[2020-04-11] MEDS: SODIUM CHLORIDE 0.9% 1000ML 1,000 ML IV SCH (16:43)
[2020-04-11] MEDS: CEFAZOLIN 1000MG 1,000 MG/7.5 ML SYR IV SCH (19:34)
[2020-04-11] MEDS: DOCUSATE SODIUM/SENNA 50/8.6MG TAB PO SCH (19:34)
[2020-04-12] MEDS: SODIUM CHLORIDE 0.9% 1000ML 1,000 ML IV SCH (01:40)
[2020-04-12] MEDS: LACTATED RINGER'S 1,000 ML IV SCH (02:58)
[2020-04-12] MEDS: LORazepam 0.5 MG TAB PO PRN (03:39)
[2020-04-12] MEDS: CEFAZOLIN 1000MG 1,000 MG/7.5 ML SYR IV SCH (03:39)
[2020-04-12] MEDS ORDERED: HYDROmorphone INJ 1 MG/ML SYRINGE IV STA (05:56)
[2020-04-12] MEDS: DEXAMETHASONE SOD PHOSPHATE 8 MG in SYRINGE 0 ML IV SCH ×3 (06:08→21:13)
[2020-04-12 07:24] LABS: Basophils # (auto) 0.01 K/uL (0-0.2); Basophils % (auto) 0.1 %; Hematocrit (blood only) 38.3 % (37-47); Immature Granulocytes # (auto) 0.23 K/uL (0.00-0.02); Immature Granulocytes % (auto) 1.2 %; Lymphocytes # (auto) 1.67 K/uL (1.2-3.4); Lymphocytes % (auto) 8.9 %; Mean Corpuscular Hemoglobin 30.4 pg (25-34); Mean Corpuscular Hgb Conc 33.9 g/dL (32-36); Mean Corpuscular Volume 89.7 fL (80-100); Mean Platelet Volume 8.7 fL (7.4-10.4); Monocytes # (auto) 1.32 K/uL (0.11-0.59); Neutrophils % (auto) 82.8 %; Platelet Count 355 K/uL (130-400); RDW Coefficient of Variation 13.1 % (11.5-14.5); RDW Standard Deviation 42.6 fL (36.4-46.3); Red Blood Count 4.27 M/uL (4.2-5.4); White Blood Count 18.73 K/uL (4.8-10.8)
[2020-04-12 07:40] LABS: BUN Creatinine Ratio 14.9 (10-20); Calcium 8.4 mg/dl (8.5-10.1); Creatinine Clr Calc Pharmacy 89.1 ml/min; Est GFR (African American) 114.5; Est GFR (Non-African American) 98.8
--- NOTE | 2020-04-12 08:31 | Orthopedic Progress Note ---
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 I explained that it may take another 24 hours for symptoms to become more controlled. I was also asked that she placed ice to the incision to help with discomfort. She may be up and ambulating as tolerated. We will also advance her bowel regiment. Present on Admission?: Yes Admission and Anticipated Discharge Date Admission Date: April 04, 2020 Subjective Patient complaining of posterior cervical pain. This is been quite debilitating throughout the evening. She has no arm radicular complaints numbness or tingling. She swallowing well. Physical Exam Physical Exam: On exam she is obviously uncomfortable. She is neurologically intact. Results & Data ([facility]) Vital Signs (Past 12 Hours) Vital Signs Temp Pulse Pulse Resp BP Pulse Ox 04/12/20 07:13 93 H 18 98 04/12/20 04:20 36.9 C 60 16 161/84 H 97 04/12/20 03:20 66 16 98 04/12/20 01:45 36.9 C 64 18 165/98 H 97 04/11/20 23:42 36.9 C 68 15 169/99 H 98 04/11/20 23:05 66 16 98 04/11/20 22:26 36.4 C L 61 16 162/78 H 99 04/11/20 22:25 36.6 C 67 20 170/96 H 99
[2020-04-12] MEDS ORDERED: POLYETHYLENE (MIRALAX) 17 GM PACK PO ONE (08:43)
[2020-04-12] MEDS ORDERED: CARISOPRODOL 350 MG TABLET PO ONE (08:45)
[2020-04-12] MEDS: GABAPENTIN 300 MG CAP PO SCH ×3 (09:10→20:23)
[2020-04-12] MEDS: NICOTINE 14 MG/24 HR PATCH TD SCH (09:12)
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
[2020-04-12] MEDS: POLYETHYLENE (MIRALAX) 17 GM PACK PO SCH ×2 (13:03→18:42)
[2020-04-12] MEDS: CARISOPRODOL 350 MG TABLET PO PRN (18:47)
[2020-04-12] MEDS: HYDROmorphone PCA 30 MG/30 ML IV PRN (19:00)
[2020-04-12] MEDS: DOCUSATE SODIUM/SENNA 50/8.6MG TAB PO SCH (20:23)
[2020-04-13] MEDS: POLYETHYLENE (MIRALAX) 17 GM PACK PO SCH ×5 (00:19→23:50)
[2020-04-13] MEDS: DEXAMETHASONE SOD PHOSPHATE 8 MG in SYRINGE 0 ML IV SCH (06:30)
[2020-04-13] MEDS: CARISOPRODOL 350 MG TABLET PO PRN ×2 (06:33→18:21)
[2020-04-13] MEDS: NICOTINE 14 MG/24 HR PATCH TD SCH (08:01)
[2020-04-13] MEDS: GABAPENTIN 300 MG CAP PO SCH ×3 (08:01→19:43)
--- NOTE | 2020-04-13 11:04 | Orthopedic Progress Note ---
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 We will remove the anterior cervical dressing today. We will decrease her Decadron. Plan for possible discharge later half of this week or weekend. Present on Admission?: Yes Admission and Anticipated Discharge Date Admission Date: April 04, 2020 Subjective Neck pain is markedly improved today. She is still swallowing well. She has no arm pain. She has been ambulating halls. Physical Exam Physical Exam: On exam she appears more comfortable. She is excellent strength testing. Results & Data ([facility]) Vital Signs (Past 12 Hours) Vital Signs Temp Pulse Resp BP Pulse Ox Pulse Ox 04/13/20 07:20 67 18 98 04/13/20 07:18 36.8 C 62 18 124/75 98 04/13/20 04:00 36.4 C L 60 12 122/76 97 04/13/20 03:41 64 16 95 04/13/20 00:13 36.6 C 64 12 125/71 98 04/13/20 00:05 98 04/12/20 23:08 71 16 95
[2020-04-13] MEDS: HYDROmorphone INJ 1 MG/ML SYRINGE IV PRN ×4 (13:23→23:51)
[2020-04-13] MEDS ORDERED: bisacodyL 10 MG SUPP PR PRN (13:40)
[2020-04-13] MEDS: DOCUSATE SODIUM/SENNA 50/8.6MG TAB PO SCH (18:24)
[2020-04-13] MEDS: LORazepam 0.5 MG TAB PO PRN (19:42)
[2020-04-14] MEDS: OXYCODONE HCL IR 5 MG TAB (IMMEDIATE RELEASE) PO PRN (01:22)
[2020-04-14] MEDS: HYDROmorphone INJ 1 MG/ML SYRINGE IV PRN ×5 (02:33→19:00)
[2020-04-14] MEDS: CARISOPRODOL 350 MG TABLET PO PRN ×2 (06:15→16:18)
[2020-04-14] MEDS: GABAPENTIN 300 MG CAP PO SCH ×3 (08:06→21:16)
[2020-04-14] MEDS: NICOTINE 14 MG/24 HR PATCH TD SCH (08:08)
[2020-04-14] MEDS: DEXAMETHASONE SOD PHOSPHATE 8 MG in SYRINGE 0 ML IV SCH (08:13)
--- NOTE | 2020-04-14 12:22 | Orthopedic Progress Note ---
Date of Service April 14, 2020 Assessment & Plan (1) Myelopathy concurrent with and due to spinal stenosis of cervical region: This time we will transition her to oral pain medications continue to encourage activity as tolerated anticipate discharge home in the next few days. Present on Admission?: Yes Admission and Anticipated Discharge Date Admission Date: April 04, 2020 Subjective Patient is neck pain is improving. She denies any arm symptoms. She is ambulating halls without difficulty. Physical Exam Physical Exam: On exam she is good strength testing appears much more comfortable today. Results & Data ([facility]) Vital Signs (Past 12 Hours) Vital Signs Temp Pulse Resp BP Pulse Ox 04/14/20 10:27 84 18 99 04/14/20 07:02 68 18 98 04/14/20 07:00 36.6 C 88 18 148/97 H 98 04/14/20 03:12 67 18 94
[2020-04-14] MEDS: HYDROmorphone HCL 2 MG TAB PO PRN ×3 (14:20→21:45)
[2020-04-14] MEDS: LORazepam 0.5 MG TAB PO PRN (15:15)
[2020-04-14] MEDS: DOCUSATE SODIUM/SENNA 50/8.6MG TAB PO SCH (21:16)
[2020-04-15] MEDS: HYDROmorphone INJ 1 MG/ML SYRINGE IV PRN ×4 (01:02→12:26)
[2020-04-15] MEDS: HYDROmorphone HCL 2 MG TAB PO PRN (02:52)
[2020-04-15] MEDS: CARISOPRODOL 350 MG TABLET PO PRN ×2 (04:19→12:45)
[2020-04-15] MEDS: LORazepam 0.5 MG TAB PO PRN (07:39)
[2020-04-15] MEDS: NICOTINE 14 MG/24 HR PATCH TD SCH (07:43)
[2020-04-15] MEDS: DEXAMETHASONE SOD PHOSPHATE 8 MG in SYRINGE 0 ML IV SCH (09:48)
[2020-04-15] MEDS: GABAPENTIN 300 MG CAP PO SCH (09:48)
--- NOTE | 2020-04-15 10:21 | Discharge Summary ---
Date of Service April 15, 2020 Admission HPI Per Admitting Provider This is a 44-year-old female known to me the presents to my office yesterday afternoon with a marked decline in status. Over the past several days she began experiencing significant bilateral shoulder interscapular pain radiating down the left arm. She must hold her left arm in a shoulder abducted position to provide any relief. All medications failed to provide any improvement. She denies any precipitating trauma fall or event. Principal Diagnosis Cervical spinal stenosis with myeloradiculopathy Discharge Data Allergies Allergy/AdvReac Type Severity Reaction Status Date / Time ibuprofen Allergy Severe Swelling Verified 03/16/20 10:00 of Lip/Tongue/Throat tramadol [From Ultram] Allergy Intermediate Rash Verified 03/16/20 10:00 codeine AdvReac Intermediate GI SYMPTOMS Verified 03/16/20 10:00 morphine AdvReac Intermediate GI SYMPTOMS Verified 03/16/20 10:00 Consultations 04/12/20 06:24 Consult Psychiatry Routine Procedures Performed Operation Date: 04/06/20 07:15 Actual Procedures p Anterior Corpectomy C6, Spinal Cord Monitoring(Not Applicable) - Juan Driscoll DO Operation Date: 04/11/20 10:30 Actual Procedures p C5-T3 Posterior Cervical Fusion,C6-7 decompression, with Spinal Cord Monitoring - Juan Drisocll DO Ordered Studies 04/04/20 15:38 CT cervical spine wo con Urgent 04/06/20 07:15 FL cervical 2-3V Routine FL fluoroscopy <1hr Routine 04/11/20 07:00 FL cervical 2-3V Routine FL fluoroscopy <1hr Routine Hospital Course (1) Myelopathy concurrent with and due to spinal stenosis of cervical region: Patient was admitted to the hospital from my office after failure of instrumentation. The following day she underwent anterior cervical corpectomy of C7 with fusion tolerated well was taken to orthopedic floor postoperatively. She did improve but started having return of some bilateral neck and arm pain and we elected to move forward with a posterior cervical decompression fusion. She tolerated this procedure well and postoperatively was weaned off of her IV narcotics pain was more more controlled TERESITA drain decreased appropriately and subsequently discharged home. Discharge orders instructions from the chart for further review.. Total Time Total Time Spent Total Time Spent (In Minutes): 40 minutes Discharge Plan Discharge Items Patient Disposition: Home - Self-Care Reason For Visit: UNCONTROLLED PAIN Discharge Diagnosis: Cervical spinal stenosis with radiculopathy Activity: As commented below Non-emergency contact: Primary Care Provider Call non-emergency contact if: you have any medication questions Follow-up/Referrals: Royer Gutiérrez DO [Primary Care Provider] - Diet: Regular Addtl Attending Provider Instructions: ACTIVITY RECOMMENDATIONS: SELF CARE INSTRUCTIONS AFTER CERVICAL FUSIONS 1. No smoking. Smoking drastically decreases the chance of a solid fusion. 2. No bending, lifting more than 5 pounds, or twisting (roll like a log when turning in bed). 3. You may shower 3 days after surgery. Thoroughly dry wound. Do not soak in the tub. 4. Cervical collar: Must be worn at all times including sleeping. You may remove the brace only to bath, eat and if you are sitting in a recliner. 5. Please walk as much as you can for exercise. Gradually increase the distance that you walk as your endurance increases. SPECIAL CARE INSTRUCTIONS: VERY IMPORTANT TO READ AND REVIEW A. Do not take any anti-inflammatory medications (i.e. Indocin, Advil, Aspirin, Naprosyn, Aleve, Motrin, etc.) as these may inhibit the chance of a solid fusion. Tylenol is okay to take. B. Your surgical incision has been closed with a cosmetic suture under the skin that will dissolve in about 6 weeks. In 14 days, you can use a pair of clean scissors and cut the suture that is left outside of the skin at the ends of your incision. C. Complications are uncommon, but please contact us if you have any signs or symptoms of: 1. wound infection (fever higher than 102.5 degrees F, redness, separation of wound, drainage, or increasing pain from the incision) 2. blood clots in legs (pain, swelling, redness and warmth in legs) 3. urinary tract infection (fever higher than 102.5 degrees, burning upon urination or increased frequency of urination) 4. nerve problems (inability to walk on your toes or heels, numbness, loss of bowel or bladder control) 5. any other symptoms that concern you. D. Please call the office at if you have any concerns or questions about your operation or recovery. MANAGING PAIN AFTER SPINAL SURGERY 1. Narcotic medication is intended for short-term use and will be provided for surgical pain. Surgical pain usually lasts for a period of 4-6 weeks. Narcotic medication includes Percocet, Vicodin, Darvocet, Tylenol #3 or Lortab. 2. Longer-term pain is more appropriately treated with non-narcotic medication such as Tylenol ES. 3. Muscle spasm is not appropriately treated with narcotics. Muscle relaxers such as Soma, Flexeril or Skelaxin can be used along with Tylenol ES. 4. Remember that we all live with some "aches and pains". This is not unusual or uncommon after an injury or as we get older. 5. We will provide appropriate medication within the normal guidelines of their prescribed use. We will also be very cautious and aware of potential abuse and extended duration of patients' medication needs. 6. Please allow 2-3 days to process refills. Prescriptions will not be mailed but must be picked up at the office. FOLLOW UP VISIT: Keep your scheduled follow-up appointment. Any questions, please call the office at . Pending Studies at Discharge: No Stand-Alone Forms: My [facility], Smoking Cessation Medications and DC Order Prescriptions: New carisoprodol [Soma] 350 mg Tablet 350 mg PO Q8 PRN (Reason: muscle pain) Qty: 30 RF: 0 gabapentin 300 mg Capsule 300 mg PO TID 30 Days Qty: 90 RF: 0 hydromorphone [Dilaudid] 2 mg tablet 2 mg PO Q6H PRN (Reason: pain) Qty: 20 RF: 0 Continued cyclobenzaprine 10 mg Tablet 10 mg PO HS PRN (Reason: Pain) RF: 0 aspirin 325 mg Tablet 650 mg PO DAILY PRN (Reason: Headache) RF: 0 oxycodone 5 mg tablet 5 mg PO Q6H PRN (Reason: pain, severe) Qty: 15 RF: 0 Discontinued Remicade 100 mg Recon Soln 100 mg IV DIRECTED RF: 0 oxycodone 5 mg tablet 5 mg PO Q6H PRN (Reason: pain, severe) Qty: 10 RF: 0 Discharge Orders: Discharge Order (Routine); Ordered 04/15/20 Ordered By: Juan Driscoll Admission Data Admit Date/Time: 04/04/20 15:29 Attending Provider: Juan Driscoll Admit Provider: Juan Driscoll Primary Care Provider: Royer Gutiérrez Other Providers: Nichole Rubin Other Interventions: LAURAY Interdisciplinary Discharge Planning Last Done: 04/12/20 15:04
== END 2020-04-15 13:41 | disposition home or self-care (01) | DRG 472 ==
LOC: 3E 15:29

== ENCOUNTER 2020-04-18 08:04 | Inpatient (IN) ==
--- NOTE | 2020-04-18 08:39 | Emergency Department Note ---
History of Present Illness General Chief complaint: Referred by Doctor Stated complaint: COMPLICATIONS WITH SURGERY Time Seen by Provider: 04/18/20 08:14 History of Present Illness Maximum Pain Intensity: 10 Patient is a 44-year-old female with past medical history significant for rheumatoid arthritis who is one-week status post posterior cervical spine fusion who returns to the emergency department as instructed by her surgeon for evaluation of ongoing pain. Patient had previously had an anterior cervical discectomy and fusion. She was admitted on 04/04 due to intractable pain and decline in condition, and on 04/06 underwent anterior C6 corpectomy and fusion. She was maintained in the hospital for the next 5 days, with plans to perform posterior cervical thoracic fusion which was performed on 04/11. Patient was discharged from the facility 3 days ago, on 04/15. She states that she has been taking Soma, gabapentin and Dilaudid at home. She called Dr. Driscoll yesterday, when she began to notice increased pain and swelling in her shoulder blades and in her neck around her surgical scar. She states that it is swollen and she feels like they "took the drain tube out too early." She continues to have a sharp, constant pain in her scapular region that radiates down her left arm. She states that she has to lay with the left arm flexed in order to stay comfortable. She spoke with Dr. Driscoll yesterday and he told her to present to the emergency department this morning for evaluation by him. She reports that her last p.o. intake was 1300 yesterday, other than taking medications at around 0100 this morning. She currently rates her discomfort a 10/10. She has not not ed any fevers. No chest pain, shortness of breath or difficulty breathing. Home Medications Home Medications Medication Instructions Recorded Confirmed Type cyclobenzaprine 10 mg PO HS PRN 02/16/20 04/18/20 History carisoprodol [Soma] 350 mg PO Q8 PRN #30 tab 04/13/20 04/18/20 Rx gabapentin 300 mg PO TID 30 Days #90 cap 04/13/20 04/18/20 Rx hydromorphone [Dilaudid] 2 mg PO Q6H PRN #20 tab 04/14/20 04/18/20 Rx diphenhydramine HCl [Benadryl] 25 mg PO Q6H PRN 04/18/20 04/18/20 History ibuprofen [Motrin IB] 200 mg PO Q6H PRN 04/18/20 04/18/20 History naloxone [Narcan] 1 spray INTRANASAL UD 04/18/20 04/18/20 History Allergies Allergy/AdvReac Type Severity Reaction Status Date / Time ibuprofen Allergy Severe Swelling Verified 04/18/20 08:56 of Lip/Tongue/Throat tramadol [From Ultram] Allergy Intermediate Rash Verified 04/18/20 08:56 codeine AdvReac Intermediate GI SYMPTOMS Verified 04/18/20 08:56 morphine AdvReac Intermediate GI SYMPTOMS Verified 04/18/20 08:56 Past Med/Surg History Medical History Bulging of cervical intervertebral disc Cardiac murmur Not noted on exam at [facility]. 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 Attempted to obtain stress test patient reported was done but unable to obtain. Surgical History History of back surgery X8 LOWER History of colonoscopy Hx of cervical spine surgery Hx of cholecystectomy Hx of tubal ligation Social History Preferred Language: German Communication Ability: Effective Science Specialist Required: No Beliefs That Will Affect Care: Druze (Nondenominational ) marital status: Single Current Living Situation: Alone Feels Safe at Home: Yes Smoking Status: Former smoker Tobacco Type: cigarettes ; Cigarettes Per Day: 20 ; Second Hand Exposure: No ; Hx Alcohol Use: Yes Alcohol type: beer Hx Substance Use: Yes substance use type: marijuana Last Used Substance: Hours (ago) Last Used Substance Other:: this morning Review of Systems A total of 10 systems reviewed and were otherwise negative Physical Exam Vital Signs Vital Signs - 24 hr 04/18/20 08:06 04/18/20 09:14 04/18/20 09:18 Temperature 36.7 C Temperature Source Oral Pulse Rate 95 H 85 79 Pulse Rate [Apical] Pulse Rate from SpO2 Sensor 84 81 Respiratory Rate 20 23 22 Respiratory Effort / Characteristics Respiratory Depth Respiratory Pattern Blood Pressure 147/83 H 114/74 Blood Pressure [Right Arm] Blood Pressure Mean 104 75 Blood Pressure Mean [Right Arm] Pulse Oximetry 99 99 99 Oxygen Delivery Method Room Air Sepsis Recent Fever Within 48 Hours No Sepsis New/Unexplained Change in Mental Status No Sepsis Action Taken by Nursing No Action Required 04/18/20 09:30 04/18/20 09:53 04/18/20 09:55 Temperature Temperature Source Pulse Rate 83 80 Pulse Rate [Apical] 78 Pulse Rate from SpO2 Sensor 84 Respiratory Rate 24 22 22 Respiratory Effort / Characteristics Non-Labored Spontaneous Respiratory Depth Normal Respiratory Pattern Regular Blood Pressure 128/85 Blood Pressure [Right Arm] 128/85 Blood Pressure Mean 89 Blood Pressure Mean [Right Arm] 99 Pulse Oximetry 99 97 98 Oxygen Delivery Method Room Air Room Air Sepsis Recent Fever Within 48 Hours Sepsis New/Unexplained Change in Mental Status Sepsis Action Taken by Nursing 04/18/20 10:00 04/18/20 10:30 04/18/20 11:00 Temperature Temperature Source Pulse Rate 81 83 82 Pulse Rate [Apical] Pulse Rate from SpO2 Sensor 83 83 81 Respiratory Rate 22 18 22 Respiratory Effort / Characteristics Respiratory Depth Respiratory Pattern Blood Pressure 98/55 L 116/72 116/69 Blood Pressure [Right Arm] Blood Pressure Mean 60 78 87 Blood Pressure Mean [Right Arm] Pulse Oximetry 97 97 99 Oxygen Delivery Method Sepsis Recent Fever Within 48 Hours Sepsis New/Unexplained Change in Mental Status Sepsis Action Taken by Nursing 04/18/20 11:30 Temperature Temperature Source Pulse Rate 76 Pulse Rate [Apical] Pulse Rate from SpO2 Sensor 75 Respiratory Rate 24 Respiratory Effort / Characteristics Respiratory Depth Respiratory Pattern Blood Pressure 99/70 L Blood Pressure [Right Arm] Blood Pressure Mean 77 Blood Pressure Mean [Right Arm] Pulse Oximetry 96 Oxygen Delivery Method Sepsis Recent Fever Within 48 Hours Sepsis New/Unexplained Change in Mental Status Sepsis Action Taken by Nursing CONSTITUTIONAL: Patient is a tearful, uncomfortable appearing 44-year-old female who is awake and alert and laying on her left side on the gurney. EYES: Pupils equal, round, reactive to light and accommodation. EOMs intact without nystagmus. Sclera are anicteric. CARDIOVASCULAR: Regular rate and rhythm. Peripheral pulses easily palpable. RESPIRATORY: Breath sounds equal and clear to auscultation without wheezes, ral es, or rhonchi heard. Full and equal chest expansion without accessory muscle use or retractions. INTEGUMENTARY: Well healing anterior neck surgical scar. Surgical incision on the posterior cervical and thoracic spine is well approximated, intact with absorbable suture and Steri-Strips. There is slight swelling, but no erythema, increased warmth or induration. LYMPH: No lymphadenopathy. Course Course The patient was seen and assessed as above. Old records were reviewed. IV lock was initiated and laboratory studies were collected. Consultation was placed with her spine surgeon, Dr. Driscoll. While awaiting contact by surgery, patient rang and requested something for discomfort. She was given 1 mg of Dilaudid IV and Zofran 4 mg ODT. She was placed on continuous pulse ox monitoring. The patient remained stable awaiting orthopedic spine surgery evaluation. The patient was assessed by Dr. Driscoll in the ED. Patient was reassessed after this, she stated that Dr. Driscoll was planning to take her to the OR today. Orders for labs were placed. The patient requested additional medication for pain and was given an additional 1 mg of Dilaudid IV. Patient was admitted by Dr. Driscoll, with plans for the OR later today. Please refer to his H&P for further information. Patient was reviewed with attending harrison stephenson. Administered Medications Discontinued Medications Hydromorphone HCl (Dilaudid) 1 mg IV NOW STA Stop: 04/18/20 09:17 Last Admin: 04/18/20 09:34 Dose: 1 mg Documented by: [id number] Hydromorphone HCl (Dilaudid) 1 mg IV NOW STA Stop: 04/18/20 11:25 Last Admin: 04/18/20 11:38 Dose: 1 mg Documented by: [id number] Ondansetron HCl (Zofran Odt) 4 mg PO NOW STA Stop: 04/18/20 09:17 Last Admin: 04/18/20 09:34 Dose: 4 mg Documented by: [id number] Medical Decision Making Differential Diagnosis Differential diagnoses entertained included postoperative pain, hardware failure, abscess, seroma, postoperative infection, among others. Medical Records Attestation: I reviewed the patient's medical records. Home Medications Current Medication List: was personally reviewed by me Laboratory Data Attestation: I reviewed the patient's lab results. Result diagrams: 04/18/20 11:35 04/18/20 11:35 Lab Results 04/18/20 04/18/20 04/18/20 Range/Units 11:35 11:35 11:35 WBC 13.53 H (4.8-10.8) K/uL RBC 3.87 L (4.2-5.4) M/uL Hgb 11.7 L (12.0-16.0) g/dL Hct 35.5 L (37-47) % MCV 91.7 (80-100) fL MCH 30.2 (25-34) pg MCHC 33.0 (32-36) g/dL RDW Std Deviation 44.3 (36.4-46.3) fL RDW Coeff of Nikhil 13.3 (11.5-14.5) % Plt Count 294 (130-400) K/uL MPV 8.3 (7.4-10.4) fL Immature Gran % (Auto) 1.4 % Neut % (Auto) 70.8 % Lymph % (Auto) 18.0 % [place] % (Auto) 8.4 % Eos % (Auto) 1.3 % Baso % (Auto) 0.1 % Immature Gran # (Auto) 0.19 H (0.00-0.02) K/uL Neut # (Auto) 9.58 H (1.4-6.5) K/uL Lymph # (Auto) 2.43 (1.2-3.4) K/uL [place] # (Auto) 1.14 H (0.11-0.59) K/uL Eos # (Auto) 0.18 (0-0.5) K/uL Baso # (Auto) 0.01 (0-0.2) K/uL PT 9.8 (9.0-12.0) Seconds INR 0.9 (0.9-1.1) APTT 27.4 (21.0-31.0) Seconds PTT Ratio 1.0 Sodium 139 (136-145) mmol/L Potassium 3.9 (3.5-5.1) mmol/L Chloride 102 (98-107) mmol/L Carbon Dioxide 31 (21-32) mmol/L Anion Gap 6.0 (3-11) BUN 7 (7-18) mg/dl Creatinine 0.51 L (0.6-1.2) mg/dl Est Cr Clr Drug Dosing 133.7 ml/min Est GFR ( Amer) 133.7 Est GFR (Non-Af Amer) 115.3 BUN/Creatinine Ratio 12.7 (10-20) Glucose 96 (70-99) mg/dl Calcium 8.4 L (8.5-10.1) mg/dl Total Bilirubin 0.3 (0.2-1) mg/dl AST 19 (15-37) U/L ALT 39 (12-78) U/L Alkaline Phosphatase 95 (45-117) U/L Total Protein 6.1 L (6.4-8.2) gm/dl Albumin 2.5 L (3.4-5.0) gm/dl Globulin 3.6 (2.5-4.0) gm/dl Albumin/Globulin Ratio 0.7 L (0.9-2) Blood Pressure Blood Pressure Findings: Normal blood pressure Blood Pressure Disposition: did not require urgent referral MDM Narrative See emergency department course Impression & Plan Post-operative pain, Status post cervical spinal arthrodesis Discharge Plan Visit Data Chief Complaint: Referred by Doctor Stated Complaint: COMPLICATIONS WITH SURGERY ED Provider: Douglas Dahl ED Midlevel Provider: Tobias Morales Discharge Problem: Post-operative pain, Status post cervical spinal arthrodesis Patient Disposition: Being Evaluated by Surgeon Forms Stand Alone Forms: [facility] Prescriptions Prescriptions: No Action cyclobenzaprine 10 mg Tablet 10 mg PO HS PRN (Reason: Pain) RF: 0 carisoprodol [Soma] 350 mg Tablet 350 mg PO Q8 PRN (Reason: muscle pain) Qty: 30 RF: 0 gabapentin 300 mg Capsule 300 mg PO TID 30 Days Qty: 90 RF: 0 hydromorphone [Dilaudid] 2 mg tablet 2 mg PO Q6H PRN (Reason: pain) Qty: 20 RF: 0 diphenhydramine HCl [Benadryl] 25 mg Capsule 25 mg PO Q6H PRN (Reason: Pain) RF: 0 ibuprofen [Motrin IB] 200 mg Tablet 200 mg PO Q6H PRN (Reason: Pain) RF: 0 Narcan 4 mg/actuation spray,non-aerosol 1 spray INTRANASAL UD RF: 0 Referrals Referrals: Royer Gutiérrez DO [Primary Care Provider] -
[2020-04-18] MEDS ORDERED: HYDROmorphone INJ 1 MG/ML SYRINGE IV STA ×2 (09:16→11:24)
[2020-04-18] MEDS ORDERED: ONDANSETRON 4 MG OD TAB PO STA (09:16)
--- NOTE | 2020-04-18 11:18 | History & Physical Report ---
Date of Service April 18, 2020 Assessment & Plan (1) Cervical pain: At that time the patient has obvious postop seroma. We will keep her n.p.o. and plan for urgent irrigation debridement of the cervical spine. Present on Admission?: Yes History of Present Illness Chief Complaint: Neck pain with left scapular pain. Primary Care Provider: Royer Gutiérrez This is a 44-year-old female known to me the presents this morning with worsening posterior cervical pain with some radiation into the left shoulder bl darin and upper arm. She states the symptoms began throughout the weekend and have been progressive. BP been on phased by oral narcotic pain medications. She is also tried ibuprofen without improvement. She denies any fevers or chills. She denies any swallowing issues. She denies any recent trauma fall or event. She is status post posterior cervical decompression and fusion and was discharged Saturday Allergies Allergy/AdvReac Type Severity Reaction Status Date / Time ibuprofen Allergy Severe Swelling Verified 04/18/20 08:56 of Lip/Tongue/Throat tramadol [From Ultram] Allergy Intermediate Rash Verified 04/18/20 08:56 codeine AdvReac Intermediate GI SYMPTOMS Verified 04/18/20 08:56 morphine AdvReac Intermediate GI SYMPTOMS Verified 04/18/20 08:56 Home Medications Home Medications Medication Instructions Recorded Confirmed Type cyclobenzaprine 10 mg PO HS PRN 02/16/20 04/18/20 History carisoprodol [Soma] 350 mg PO Q8 PRN #30 tab 04/13/20 04/18/20 Rx gabapentin 300 mg PO TID 30 Days #90 cap 04/13/20 04/18/20 Rx hydromorphone [Dilaudid] 2 mg PO Q6H PRN #20 tab 04/14/20 04/18/20 Rx diphenhydramine HCl [Benadryl] 25 mg PO Q6H PRN 04/18/20 04/18/20 History ibuprofen [Motrin IB] 200 mg PO Q6H PRN 04/18/20 04/18/20 History naloxone [Narcan] 1 spray INTRANASAL UD 04/18/20 04/18/20 History Past Med/Surg History Medical History Bulging of cervical intervertebral disc Cardiac murmur Not noted on exam at [facility]. 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 Attempted to obtain stress test patient reported was done but unable to obtain. Surgical History History of back surgery X8 LOWER History of colonoscopy Hx of cervical spine surgery Hx of cholecystectomy Hx of tubal ligation Social History Preferred Language: Cymro Communication Ability: Effective Ballistic Technician Required: No Beliefs That Will Affect Care: Hoahaoism (Rastafari ) marital status: Single Current Living Situation: Alone Feels Safe at Home: Yes Smoking Status: Former smoker Tobacco Type: cigarettes ; Cigarettes Per Day: 20 ; Second Hand Exposure: No ; Hx Alcohol Use: Yes Alcohol type: beer Hx Substance Use: Yes substance use type: marijuana Last Used Substance: Hours (ago) Last Used Substance Other:: this morning Physical Exam Physical Exam: Patient is alert and oriented Patient is in obvious distress. She has marked swelling to the posterior cervical spine in the area of the incision. There is however no erythema and no drainage. The Steri-Strips are still in place. She is neurologically intact to detailed testing upper and lower extremities. Heart is regular rate and rhythm Lungs clear to auscultation Results & Data Vital Signs (Past 12 Hours) Vital Signs Temp Pulse Pulse Resp BP BP Pulse Ox 04/18/20 09:55 78 22 128/85 98 04/18/20 09:53 80 22 97 04/18/20 09:30 83 24 128/85 99 04/18/20 09:18 79 22 99 04/18/20 09:14 85 23 114/74 99 04/18/20 08:06 36.7 C 95 H 20 147/83 H 99
[2020-04-18 11:48] LABS: Basophils # (auto) 0.01 K/uL (0-0.2); Basophils % (auto) 0.1 %; Eosinophils # (auto) 0.18 K/uL (0-0.5); Eosinophils % (auto) 1.3 %; Hematocrit (blood only) 35.5 % (37-47); Hemoglobin 11.7 g/dL (12.0-16.0); Immature Granulocytes # (auto) 0.19 K/uL (0.00-0.02); Immature Granulocytes % (auto) 1.4 %; Lymphocytes # (auto) 2.43 K/uL (1.2-3.4); Mean Corpuscular Hemoglobin 30.2 pg (25-34); Mean Corpuscular Volume 91.7 fL (80-100); Mean Platelet Volume 8.3 fL (7.4-10.4); Monocytes # (auto) 1.14 K/uL (0.11-0.59); Monocytes % (auto) 8.4 %; Neutrophils # (auto) 9.58 K/uL (1.4-6.5); Neutrophils % (auto) 70.8 %; Platelet Count 294 K/uL (130-400); RDW Coefficient of Variation 13.3 % (11.5-14.5); RDW Standard Deviation 44.3 fL (36.4-46.3); Red Blood Count 3.87 M/uL (4.2-5.4); White Blood Count 13.53 K/uL (4.8-10.8)
[2020-04-18 12:00] LABS: INR 0.9 (0.9-1.1); Partial Thromboplastin Time 27.4 Seconds (21.0-31.0); Prothrombin Time 9.8 Seconds (9.0-12.0)
[2020-04-18 12:04] LABS: Albumin Level 2.5 gm/dl (3.4-5.0); BUN Creatinine Ratio 12.7 (10-20); Calcium 8.4 mg/dl (8.5-10.1); Creatinine Clr Calc Pharmacy 133.7 ml/min; Est GFR (African American) 133.7; Est GFR (Non-African American) 115.3; Potassium 3.9 mmol/L (3.5-5.1)
[2020-04-18 12:07] LABS: Albumin Globulin Ratio 0.7 (0.9-2); Bilirubin,Total 0.3 mg/dl (0.2-1); Globulin 3.6 gm/dl (2.5-4.0); Total Protein 6.1 gm/dl (6.4-8.2)
--- NOTE | 2020-04-18 13:31 | Emergency Department Note ---
ED Visit Note I have personally seen and evaluated the patient with the physician assistant loan processor. I agree with the diagnostic/management decisions and have personally been involved in these decisions and agree with the diagnosis. Patient presents with neck pain after having had surgery last week. She was referred here for further evaluation and Dr. Driscoll is going to take her to surgery. .
[2020-04-18] MEDS ORDERED: ONDANSETRON 4 MG OD TAB PO PRN ×2 (13:49→21:01)
[2020-04-18] MEDS ORDERED: HYDROmorphone INJ 0.5 MG/0.5 ML SYR IV PRN (13:49)
[2020-04-18] MEDS ORDERED: HYDROmorphone HCL 2 MG TAB PO PRN (13:49)
[2020-04-18] MEDS ORDERED: CYCLOBENZAPRINE HCL 10 MG TAB PO PRN (13:49)
[2020-04-18] MEDS ORDERED: PROMETHAZINE HCL 12.5 MG in SODIUM CHLORIDE 0.9% 50 ML IV PRN ×2 (13:49→21:01)
[2020-04-18] MEDS ORDERED: METOCLOPRAMIDE HCL INJ 5 MG/ML 2 ML VIAL IV PRN ×2 (13:49→21:01)
[2020-04-18] MEDS ORDERED: ONDANSETRON INJ 2 MG/ML 2 ML VIAL IV PRN ×3 (13:49→21:01)
[2020-04-18] MEDS ORDERED: LORazepam 1 MG TAB PO PRN (13:49)
[2020-04-18] MEDS ORDERED: CARISOPRODOL 350 MG TABLET PO PRN (13:49)
[2020-04-18] MEDS ORDERED: ACETAMINOPHEN 500 MG TAB PO PRN ×2 (13:49→21:01)
[2020-04-18] MEDS ORDERED: LORazepam 1 MG/2 ML VIAL IV PRN (13:49)
[2020-04-18] MEDS ORDERED: CEFAZOLIN 2000MG 2,000 MG/15 ML SYR IV SCH (14:00)
[2020-04-18] MEDS: LACTATED RINGER'S 1,000 ML IV SCH (14:07)
[2020-04-18] MEDS: HYDROmorphone INJ 1 MG/ML SYRINGE IV PRN ×2 (14:08→23:56)
[2020-04-18] MEDS: GABAPENTIN 300 MG CAP PO SCH ×2 (14:37→21:44)
[2020-04-18 15:25] LABS: Appearance Urine Clear (Clear); Bacteria Urine Automated Negative (Negative); Bilirubin Urine Negative (Negative); Blood Urine Negative (Negative); Cast Urine Automated 0 /lpf (0-5); Color Urine Yellow; Epithelial Cell Urine Auto >30 /lpf (0-5); Glucose Urine UA Negative (Negative); Ketones Urine Negative (Negative); Leukocyte Esterase Urine Trace (Negative); Nitrite Urine Negative (Negative); Protein Urine Negative (Negative); RBC Urine Automated 0-4 /hpf (0-4); Specific Gravity Urine 1.011 (1.000-1.030); Urobilinogen Urine Negative (Negative)
[2020-04-18] MEDS ORDERED: fentaNYL citrate 100 MCG/2 ML VIAL ONE (16:44)
[2020-04-18] MEDS ORDERED: NEOSTIGMINE METHYLSULFATE 5 MG/5 ML SYR ONE (16:44)
[2020-04-18] MEDS ORDERED: PROPOFOL IV EMULSION 10 MG/ML 20 ML VIAL IV ONE (16:44)
[2020-04-18] MEDS ORDERED: LIDOCAINE HCL 2% 2 ML VIAL/AMP(20MG/ML) INFIL ONE (16:44)
[2020-04-18] MEDS ORDERED: MIDAZOLAM HCL 1 MG/ML 2ML VIAL ONE (16:44)
[2020-04-18] MEDS ORDERED: ROCURONIUM BROMIDE 10 MG/ML 5 ML VIAL ONE (16:44)
[2020-04-18] MEDS ORDERED: GLYCOPYRROLATE 0.2 MG/ML VIAL ONE ×2 (16:44→18:32)
[2020-04-18] MEDS ORDERED: BACITRACIN INJ 50,000 UNIT VIAL ONE (17:08)
[2020-04-18] MEDS ORDERED: ePHEDrine sulfate 50 MG/ML AMP IV PRN (17:41)
[2020-04-18] MEDS ORDERED: ATROPINE SULFATE 0.1 MG/ML 10ML SYR IV PRN (17:41)
--- NOTE | 2020-04-18 17:41 | Anesthesiology Consultation ---
Date of Service April 18, 2020 Assessment & Plan Consults Requested none ASA ASA3 Proposed Anesthesia Anesthesia Type: General Risk / Benefits Reviewed With: PT / POA / Parent / Guardian, Accepts Plan and Informed Consent Obtained History Surgery Operation Date: 04/18/20 11:25 Proposed Procedures p Incision and Drainage Posterior Cervical Spine - Juan Driscoll DO Height/Weight Height: 5 ft 3 in Weight: 75 kg Allergies Allergy/AdvReac Type Severity Reaction Status Date / Time ibuprofen Allergy Severe Swelling Verified 04/18/20 08:56 of Lip/Tongue/Throat tramadol [From Ultram] Allergy Intermediate Rash Verified 04/18/20 08:56 codeine AdvReac Intermediate GI SYMPTOMS Verified 04/18/20 08:56 morphine AdvReac Intermediate GI SYMPTOMS Verified 04/18/20 08:56 Medications Home Medications Medication Instructions Recorded Confirmed Last Taken cyclobenzaprine 10 mg PO HS PRN 02/16/20 04/18/20 04/03/20 21:00 carisoprodol [Soma] 350 mg PO Q8 PRN #30 tab 04/13/20 04/18/20 04/18/20 01:00 350 mg gabapentin 300 mg PO TID 30 Days #90 cap 04/13/20 04/18/20 04/18/20 01:00 300 mg hydromorphone [Dilaudid] 2 mg PO Q6H PRN #20 tab 04/14/20 04/18/20 04/18/20 01:00 10 mg diphenhydramine HCl [Benadryl] 25 mg PO Q6H PRN 04/18/20 04/18/20 04/18/20 01:00 25 mg ibuprofen [Motrin IB] 200 mg PO Q6H PRN 04/18/20 04/18/20 04/18/20 01:00 800 mg naloxone [Narcan] 1 spray INTRANASAL UD 04/18/20 04/18/20 Unknown Active Medications Generic Name Dose Route Start Last Admin Trade Name Freq PRN Reason Stop Dose Admin Gabapentin 300 mg 04/18/20 14:30 04/18/20 14:37 Neurontin PO 05/18/20 14:29 300 mg TID TOBI Administration Hydromorphone HCl 2 mg 04/18/20 13:49 04/18/20 16:20 Dilaudid PO 05/02/20 13:48 2 mg Q6H PRN Administration pain Hydromorphone HCl 1 mg 04/18/20 13:49 04/18/20 14:08 Dilaudid IV 05/02/20 13:48 1 mg Q3H PRN Administration severe pain (scale 7-10) Lactated Ringer's 1,000 mls @ 75 mls/hr 04/18/20 13:49 04/18/20 14:07 Lr IV 05/18/20 13:48 75 mls/hr .[id number] TOBI Administration Miscellaneous 1 ea 04/18/20 16:00 04/18/20 15:28 Order Awaiting Action N/A 05/18/20 15:59 Not Given QS TOBI NPO Date Last Intake of Fluids: 04/18/20 Time Last Intake of Fluids: 00:00 Date Last Intake of Solids: 04/18/20 Time Last Intake of Solids: 00:00 Past Medical History Medical History Bulging of cervical intervertebral disc Cardiac murmur Not noted on exam at PAT. Cervical stenosis of spine Menopausal symptoms Numbness and tingling in left arm [employer] Pulmonary hypertension Per patient was noted on workup for murmur. Attempted to obtain stress test patient reported was done but unable to obtain. Exercise / Class Metabolic Activity III < 4 Walking/Shop/Light housework Past Surgical History Surgical History History of back surgery X8 LOWER History of colonoscopy Hx of cervical spine surgery Hx of cholecystectomy Hx of tubal ligation Past Anesthesia History No Hx of Anesthesia Complications and No Family Hx of Anesthesia Complications History of PONV No Hx of PONV and No Hx of Motion Sickness Social History Smoking Status: Former smoker tobacco type: cigarettes Smoking cigarettes per day: 20 Smoking End Date: April 01, 2020 Hx Alcohol Use: Yes Alcohol type: beer alcohol intake frequency: a few times a week Hx Substance Use: Yes substance use type: marijuana Last Used Substance: Hours (ago) Last Used Substance Other:: this morning Review of Systems denies fever/cough/ colds/ chest pain/ SOB/ SHAN Constitutional: no fever and no chills Respiratory: no cough and no dyspnea denies SHAN Cardiovascular: no chest pain and no dyspnea on exertion Physical Exam Vital Signs Last Vital Signs Temp 36.7 C 04/18/20 17:13 Pulse 82 04/18/20 17:13 Resp 16 04/18/20 17:13 BP 125/81 04/18/20 17:13 Pulse Ox 96 04/18/20 17:13 ENMT Mouth: + dentition abnormality; no TMJ abnormality Thyromental Distance: > or= 3.5 Finger Breadths Mallampati Class: II Mouth / Teeth: 1. extremely loose tooth. Neck neck extension not limited Respiratory normal respiratory effort; no respiratory distress Auscultation: lungs clear to auscultation bilaterally Cardiovascular Rate/Rhythm: regular rate and regular rhythm Neurologic moves all extremities Psychiatric Orientation: alert and oriented x 3 Testing Laboratory Results 04/18/20 11:35 04/18/20 11:35 PT 9.8 Seconds (9.0-12.0) 04/18/20 11:35 INR 0.9 (0.9-1.1) 04/18/20 11:35 APTT 27.4 Seconds (21.0-31.0) 04/18/20 11:35 Urine Color Yellow 04/18/20 14:30 Urine Appearance Clear (Clear) 04/18/20 14:30 Urine pH 7.0 (4.5-7.5) 04/18/20 14:30 Ur Specific Lenora 1.011 (1.000-1.030) 04/18/20 14:30 Urine Protein Negative (Negative) 04/18/20 14:30 Urine Glucose (UA) Negative (Negative) 04/18/20 14:30 Urine Ketones Negative (Negative) 04/18/20 14:30 Urine Nitrite Negative (Negative) 04/18/20 14:30 Ur Leukocyte Esterase Trace (Negative) H 04/18/20 14:30 Urine WBC (Auto) 1-5 /hpf (0-5) 04/18/20 14:30 Urine RBC (Auto) 0-4 /hpf (0-4) 04/18/20 14:30 U Hyaline Cast (Auto) 0 /lpf (0-5) 04/18/20 14:30 U Epithel Cells (Auto) >30 /lpf (0-5) H 04/18/20 14:30 Urine Bacteria (Auto) Negative (Negative) 04/18/20 14:30
[2020-04-18] MEDS ORDERED: GENTAMICIN SULFATE 40 MG/ML 2 ML VIAL ONE (17:51)
[2020-04-18] MEDS ORDERED: VANCOMYCIN HCL 1000MG/20ML VIAL ONE (17:52)
[2020-04-18] MEDS ORDERED: PHENYLEPHRINE HCL 10 MG/ML VIAL ONE (18:43)
[2020-04-18] MEDS ORDERED: ePHEDrine sulfate 50 MG/ML SYR ONE (19:00)
--- NOTE | 2020-04-18 19:09 | Operative Report ---
Post Operative Report Pre & Post Diagnosis Operation Date: 04/18/20 11:25 Pre-Op Diagnosis: Post-operative cervical seroma Post-Op Diagnosis: Post-operative cervical seroma I identified the patient and participated in the time-out.: Yes Procedure Operation Date: 04/18/20 11:25 Actual Procedures I&D of the posterior cervical spine with placement of 5 cc of stimulant beads impregnated with vancomycin and gentamicin. Surgeon Juan Driscoll, DO Stone Belt Sander None Estimated Blood Loss 25 Findings Consistent with Post-Op Diagnosis Specimens None Indications This is a 44-year-old female well-known to me that status post posterior cervical decompression fusion. She presents with significant swelling and discomfort in the posterior cervical spine consistent of a seroma. Subsequently we underwent the above-mentioned procedure. Description of Procedure Patient was met with preop the case chest questions were addressed but that point patient was taken back to operative suite underwent intubation placed in a prone position on the Abhinav table with chest padded bolsters. All bony prominences well-padded eyes inspected to ensure no external pressure placed upon the. This point the posterior cervical spine was prepped and draped in normal sterile fashion. Utilizing the previous incision site sharp dissection was performed down to and exposing a large seroma just beneath the skin surface. This area was copiously irrigated and debrided. I then released the fascial la bo and evacuated hematoma in the posterior cervical space. All areas were copiously irrigated approximately 2-1/2 cc of stimulant beads impregnated with vancomycin and gentamicin were placed in both areas. A 10 round TERESITA drain was placed in the subfascial layer and a 15 round TERESITA drain placed in the suprafascial layer. There was sewn in position. All layers were closed with interrupted Vicryl and 4 Monocryl for final skin closure. Steri-Strips dressings placed. Patient will continue to PACU stable condition. I attest to the content of the Intraoperative Record and any orders documented therein. Any exceptions are noted below.
[2020-04-18] MEDS: HYDROmorphone INJ 2 MG/ML SYR/VIAL IV PRN ×6 (19:38→20:08)
--- NOTE | 2020-04-18 19:54 | Anesthesiology Progress Note ---
Date of Service April 18, 2020 Anesthesia Post Procedure Vital Signs Vital Signs: Temp Pulse Pulse Pulse Resp BP BP 04/18/20 19:34 36.2 C L 96 H 14 146/88 H 04/18/20 17:25 37.0 C 76 18 04/18/20 17:13 36.7 C 82 16 04/18/20 13:45 36.8 C 75 18 04/18/20 13:00 78 18 126/79 04/18/20 12:30 74 13 94/61 L 04/18/20 12:01 81 14 04/18/20 12:00 80 14 122/74 04/18/20 11:30 76 24 99/70 L 04/18/20 11:00 82 22 116/69 04/18/20 10:30 83 18 116/72 04/18/20 10:00 81 22 98/55 L 04/18/20 09:55 78 22 04/18/20 09:53 80 22 04/18/20 09:30 83 24 128/85 04/18/20 09:18 79 22 04/18/20 09:14 85 23 114/74 04/18/20 08:06 36.7 C 95 H 20 147/83 H BP Pulse Ox Pulse Ox 04/18/20 19:34 95 04/18/20 17:25 118/54 L 96 04/18/20 17:13 125/81 96 04/18/20 13:45 134/82 96 96 04/18/20 13:00 95 04/18/20 12:30 94 04/18/20 12:01 94 04/18/20 12:00 94 04/18/20 11:30 96 04/18/20 11:00 99 04/18/20 10:30 97 04/18/20 10:00 97 04/18/20 09:55 128/85 98 04/18/20 09:53 97 04/18/20 09:30 99 04/18/20 09:18 99 04/18/20 09:14 99 04/18/20 08:06 99 Pain Intensity Left Shoulder: Pain Intensity: 10 Posterior Neck: Pain Intensity: 10 Transfer of Care Handoff Completed per policy Notes Mental Status: alert / awake / arousable and participated in evaluation Patient Amnestic to Procedure: Yes Nausea / Vomiting: adequately controlled Pain: adequately controlled Airway Patency, RR, SpO2: stable & adequate BP & HR: stable & adequate Hydration State: stable & adequate Anesthetic Complications: no major complications apparent and Pt Satisfied with anesthetic care
[2020-04-18] MEDS ORDERED: HYDROmorphone INJ 1 MG/ML SYRINGE IV ONE (20:15)
[2020-04-18] MEDS ORDERED: ALUMINUM/MAGNESIUM SUSP 30 ML UDC PO PRN (21:01)
[2020-04-18] MEDS ORDERED: RACEPINEPHRINE 2.25% NEBU SOLN 0.5 ML VIAL INH PRN (21:01)
[2020-04-18] MEDS ORDERED: LORazepam 0.5 MG/1 ML VIAL IV PRN (21:01)
[2020-04-18] MEDS ORDERED: FAMOTIDINE 20 MG TAB PO PRN (21:01)
[2020-04-18] MEDS ORDERED: NALOXONE HCL 0.4 MG/1 ML VIAL/CARP IV PRN (21:01)
[2020-04-18] MEDS ORDERED: DO NOT ADMINISTER PNEUMOCOCCAL VACCINE PRN (21:01)
[2020-04-18] MEDS ORDERED: MAGNESIUM HYDROXIDE SUSP 30 ML UDC PO PRN (21:01)
[2020-04-18] MEDS ORDERED: DEXAMETHASONE SOD PHOSPHATE 8 MG in SYRINGE 0 ML IV PRN (21:01)
[2020-04-18] MEDS ORDERED: SOD PHOSPHATE/SOD BIPHOSPHATE ENEMA 132 ML BTL PR PRN (21:01)
[2020-04-18] MEDS ORDERED: DO NOT ADMINISTER FLU VACCINE PRN (21:01)
[2020-04-18] MEDS ORDERED: LORazepam 0.5 MG TAB PO PRN (21:01)
[2020-04-18] MEDS ORDERED: ACETAMINOPHEN 1,000 MG/100 ML VIAL IV PRN (21:01)
[2020-04-18] MEDS: DOCUSATE SODIUM 100 MG CAP PO SCH (21:43)
[2020-04-18] MEDS: DOCUSATE SODIUM/SENNA 50/8.6MG TAB PO SCH (21:43)
[2020-04-18] MEDS: SODIUM CHLORIDE 0.9% 1000ML 1,000 ML IV SCH (21:44)
[2020-04-19] MEDS: CEFAZOLIN 2000MG 2,000 MG/15 ML SYR IV SCH ×2 (02:12→09:37)
[2020-04-19] MEDS: LACTATED RINGER'S 1,000 ML IV SCH ×2 (02:16→13:47)
[2020-04-19] MEDS: HYDROmorphone INJ 1 MG/ML SYRINGE IV PRN ×7 (03:24→22:47)
[2020-04-19] MEDS: DOCUSATE SODIUM 100 MG CAP PO SCH ×2 (08:32→21:25)
[2020-04-19] MEDS: GABAPENTIN 300 MG CAP PO SCH ×3 (08:32→21:25)
--- NOTE | 2020-04-19 10:50 | Orthopedic Progress Note ---
Date of Service April 19, 2020 Assessment & Plan (1) Status post cervical spinal arthrodesis: At this time she is feeling marked improvement in her pain. She is been up and ambulating. We discussed maintaining her TERESITA drains and most likely will be discharged home with them. We will assess her pain control for the next 24 hours hopefully discharge home in the next few days. Present on Admission?: Yes Admission and Anticipated Discharge Date Admission Date: April 18, 2020 Subjective Patient's neck symptoms and arm symptoms are markedly improved. Physical Exam Physical Exam: On exam discussed wrinkle testing peers markedly more c omfortable. Results & Data ([facility]) Vital Signs (Past 12 Hours) Vital Signs Temp Pulse Pulse Pulse Resp BP Pulse Ox 04/19/20 08:01 04/19/20 07:19 36.8 C 78 16 163/79 H 98 04/19/20 07:17 84 16 97 04/19/20 03:51 70 16 93 04/19/20 03:25 36.5 C 73 22 121/81 96 04/19/20 00:10 36.4 C L 72 15 119/77 96 04/18/20 23:15 81 20 98 04/18/20 22:52 36.8 C 71 16 115/78 96 Pulse Ox 04/19/20 08:01 97 04/19/20 07:19 04/19/20 07:17 04/19/20 03:51 04/19/20 03:25 04/19/20 00:10 04/18/20 23:15 04/18/20 22:52
[2020-04-19] MEDS ORDERED: NICOTINE 21 MG/24 HR TDSY TD ONE (11:00)
[2020-04-19] MEDS ORDERED: Nursing to Pharmacy Communication ONE (12:29)
[2020-04-19] MEDS: SODIUM CHLORIDE 0.9% 1000ML 1,000 ML IV SCH (12:37)
[2020-04-19] MEDS: POLYETHYLENE (MIRALAX) 17 GM PACK PO SCH (19:40)
[2020-04-19] MEDS: DOCUSATE SODIUM/SENNA 50/8.6MG TAB PO SCH (21:25)
[2020-04-20] MEDS: POLYETHYLENE (MIRALAX) 17 GM PACK PO SCH ×4 (00:54→17:48)
[2020-04-20] MEDS: HYDROmorphone INJ 1 MG/ML SYRINGE IV PRN ×5 (01:52→18:00)
[2020-04-20] MEDS: LACTATED RINGER'S 1,000 ML IV SCH ×2 (01:55→13:36)
[2020-04-20] MEDS: GABAPENTIN 300 MG CAP PO SCH ×3 (08:18→20:43)
[2020-04-20] MEDS: DOCUSATE SODIUM 100 MG CAP PO SCH ×2 (08:18→20:43)
[2020-04-20] MEDS: NICOTINE 21 MG/24 HR TDSY TD SCH (08:18)
--- NOTE | 2020-04-20 10:22 | Orthopedic Progress Note ---
Date of Service April 20, 2020 Assessment & Plan (1) Cervical pain: At this time we will maintain the TERESITA drains. We will allow her to shower today. She did have an OpSite placed over the dressing. Present on Admission?: Yes Admission and Anticipated Discharge Date Admission Date: April 18, 2020 Subjective Neck pain is improved. Arm pain symptoms improved. Physical Exam Physical Exam: On exam she is good strength testing. Results & Data ([facility]) Vital Signs (Past 12 Hours) Vital Signs Temp Pulse Pulse Resp BP BP Pulse Ox 04/20/20 07:39 36.8 C 75 16 129/74 100 04/20/20 07:28 04/20/20 07:15 71 18 96 04/20/20 03:10 72 16 98 04/19/20 23:22 36.6 C 85 14 104/69 98 04/19/20 23:08 86 18 97 Pulse Ox 04/20/20 07:39 04/20/20 07:28 97 04/20/20 07:15 04/20/20 03:10 04/19/20 23:22 04/19/20 23:08
[2020-04-20] MEDS ORDERED: DEXAMETHASONE SOD PHOSPHATE 8 MG in SYRINGE 0 ML IV ONE (10:30)
[2020-04-20] MEDS: HYDROmorphone HCL 2 MG TAB PO PRN ×2 (10:44→21:04)
[2020-04-20] MEDS ORDERED: bisacodyL 10 MG SUPP PR PRN (19:10)
[2020-04-20] MEDS: DOCUSATE SODIUM/SENNA 50/8.6MG TAB PO SCH (20:43)
[2020-04-21] MEDS: HYDROmorphone INJ 1 MG/ML SYRINGE IV PRN ×4 (01:36→11:12)
[2020-04-21] MEDS: LACTATED RINGER'S 1,000 ML IV SCH (01:36)
[2020-04-21] MEDS: POLYETHYLENE (MIRALAX) 17 GM PACK PO SCH (03:19)
[2020-04-21] MEDS: DOCUSATE SODIUM 100 MG CAP PO SCH (08:11)
[2020-04-21] MEDS: NICOTINE 21 MG/24 HR TDSY TD SCH (08:11)
[2020-04-21] MEDS: GABAPENTIN 300 MG CAP PO SCH (08:12)
--- NOTE | 2020-05-06 09:52 | Discharge Summary ---
Date of Service May 06, 2020 Admission HPI Per Admitting Provider This is a 44-year-old female known to me the presents this morning with worsening posterior cervical pain with some radiation into the left shoulder blade and upper arm. She states the symptoms began throughout the weekend and have been progressive. BP been on phased by oral narcotic pain medications. She is also tried ibuprofen without improvement. She denies any fevers or chills. She denies any swallowing issues. She denies any recent trauma fall or event. She is status post posterior cervical decompression and fusion and was discharged Saturday Principal Diagnosis Posterior cervical seroma Discharge Data Allergies Allergy/AdvReac Type Severity Reaction Status Date / Time ibuprofen Allergy Severe Swelling Verified 05/03/20 22:13 of Lip/Tongue/Throat tramadol [From Ultram] Allergy Intermediate Rash Verified 05/03/20 22:13 codeine AdvReac Intermediate GI SYMPTOMS Verified 05/03/20 22:13 morphine AdvReac Intermediate GI SYMPTOMS Verified 05/03/20 22:13 Procedures Performed Operation Date: 04/18/20 11:25 Actual Procedures p Incision and Drainage Posterior Cervical Spine(Not Applicable) - Juan Driscoll DO Hospital Course (1) Cervical pain: Patient was admitted with cervical neck pain and diagnosed with a postoperative cervical seroma. She underwent I&D and drains placed. She to lerated this well and postoperatively TERESITA output decreased appropriately with a course of of her stay. Pain was controlled. Neurologically she was intact and strength improved. Subsequently she was discharged home. Discharge orders instructions from the chart for further review. Total Time Total Time Spent Total Time Spent (In Minutes): 20 minutes Discharge Plan Discharge Items Patient Disposition: Home - Self-Care Reason For Visit: COMPLICATIONS WITH SURGERY Discharge Diagnosis: Cervical radiculopathy Activity: As commented below Non-emergency contact: Primary Care Provider Call non-emergency contact if: you have any medication questions Follow-up/Referrals: Royer Gutiérrez DO [Primary Care Provider] - Diet: Regular Addtl Attending Provider Instructions: ACTIVITY RECOMMENDATIONS: SELF CARE INSTRUCTIONS AFTER CERVICAL FUSIONS 1. No smoking. Smoking drastically decreases the chance of a solid fusion. 2. No bending, lifting more than 5 pounds, or twisting (roll like a log when turning in bed). 3. You may shower 3 days after surgery. Thoroughly dry wound. Do not soak in the tub. 4. Cervical collar: Must be worn at all times including sleeping. You may remove the brace only to bath, eat and if you are sitting in a recliner. 5. Please walk as much as you can for exercise. Gradually increase the distance that you walk as your endurance increases. SPECIAL CARE INSTRUCTIONS: VERY IMPORTANT TO READ AND REVIEW A. Do not take any anti-inflammatory medications (i.e. Indocin, Advil, Aspirin, Naprosyn, Aleve, Motrin, etc.) as these may inhibit the chance of a solid fusion. Tylenol is okay to take. B. Your surgical incision has been closed with a cosmetic suture under the skin that will dissolve in about 6 weeks. In 14 days, you can use a pair of clean scissors and cut the suture that is left outside of the skin at the ends of your incision. C. Complications are uncommon, but please contact us if you have any signs or symptoms of: 1. wound infection (fever higher than 102.5 degrees F, redness, separation of wound, drainage, or increasing pain from the incision) 2. blood clots in legs (pain, swelling, redness and warmth in legs) 3. urinary tract infection (fever higher than 102.5 degrees, burning upon urination or increased frequency of urination) 4. nerve problems (inability to walk on your toes or heels, numbness, loss of bowel or bladder control) 5. any other symptoms that concern you. D. Please call the office at if you have any concerns or questions about your operation or recovery. MANAGING PAIN AFTER SPINAL SURGERY 1. Narcotic medication is intended for short-term use and will be provided for surgical pain. Surgical pain usually lasts for a period of 4-6 weeks. Narcotic medication includes Percocet, Vicodin, Darvocet, Tylenol #3 or Lortab. 2. Longer-term pain is more appropriately treated with non-narcotic medication such as Tylenol ES. 3. Muscle spasm is not appropriately treated with narcotics. Muscle relaxers such as Soma, Flexeril or Skelaxin can be used along with Tylenol ES. 4. Remember that we all live with some "aches and pains". This is not unusual or uncommon after an injury or as we get older. 5. We will provide appropriate medication within the normal guidelines of their prescribed use. We will also be very cautious and aware of potential abuse and extended duration of patients' medication needs. 6. Please allow 2-3 days to process refills. Prescriptions will not be mailed but must be picked up at the office. FOLLOW UP VISIT: Keep your scheduled follow-up appointment. Any questions, please call the office at . Pending Studies at Discharge: No Stand-Alone Forms: [facility], Smoking Cessation Medications and DC Order Prescriptions: Continued cyclobenzaprine 10 mg Tablet 10 mg PO HS PRN (Reason: Pain) RF: 0 carisoprodol [Soma] 350 mg Tablet 350 mg PO Q8 PRN (Reason: muscle pain) Qty: 30 RF: 0 gabapentin 300 mg Capsule 300 mg PO TID 30 Days Qty: 90 RF: 0 Discontinued hydromorphone [Dilaudid] 2 mg tablet 2 mg PO Q6H PRN (Reason: pain) Qty: 20 RF: 0 No Action oxycodone-acetaminophen [Percocet] 10-325 mg tablet 1 tab PO Q6 PRN (Reason: Pain) RF: 0 Discharge Orders: Discharge Order (Routine); Ordered 04/21/20 Ordered By: Juan Driscoll Admission Data Admit Date/Time: 04/18/20 11:13 Attending Provider: Juan Driscoll Admit Provider: Juan Driscoll Primary Care Provider: Royer Gutiérrez Other Interventions: Discharge Summary Assessment (RN) Last Done: 04/21/20 09:16 DC Date/Time DO NOT enter until pt leaves facility: 04/21/20 11:39
== END 2020-04-21 11:39 | disposition home or self-care (01) | DRG 921 ==
LOC: ED 08:04 → 3E 11:13

== ENCOUNTER 2020-05-03 15:01 | Inpatient (IN) ==
--- NOTE | 2020-05-03 17:17 | Emergency Department Note ---
Impression & Plan Fluid collection at surgical site, Post-op pain, Thrombocytosis ED Provider Note NAME: PAULINE ZAPIEN AGE: 44 SEX: F : 1975 ARRIVES VIA: Walk-In INFORMANT: Patient, ED PROVIDER(S): Randolph Velazquez MD Chief Complaint: Neck pain, drainage HPI: Patient does present with concern for neck pain as well as the concern for possible infection. The patient states that her home health nurse was checking her wound is been the first time in 3 days that she is taken dressing and noticed that she had some drainage. Does not describe it as foul-smelling and denies any fevers or chills. Patient does have pain over the TERESITA drain insertion site. The patient denies any recent falls or trauma. Patient does not present with cough, fevers, chills, coronavirus contacts, coronavirus testing, or recent travel. Patient has not taken anything for pain. Nothing makes pain better or worse necessarily. The patient denies any numbness tingling or weakness. Dr. Driscoll had performed a cervical arthrodesis secondary to cervical stenosis in mid April. ROS: See HPI for pertinent positives and negatives. A total of 10 systems were reviewed and otherwise negative. Past medical history: See below Surgical history: See below Social history: See below Physical Exam: GENERAL: NAD, non-toxic. Wearing a mask. EYE EXAM: Normal conjunctiva. PERRL, no anisocoria and EOM's grossly intact w/o pain. NECK: Supple, no nuchal rigidity, no adenopathy, non-tender. No signs of meningismus. TERESITA drain in place the distal cervical upper thoracic spine with the rest of the incisional site well-appearing without drainage, scant amount of drainage noted at the TERESITA site that is yellow which is at the caudal aspect of the incisional site, TERESITA drain bulb with serosanguineous fluid. LUNGS: Clear to auscultation. Normal chest wall mechanics. HEART: Tachycardic and regular, no MRG. ABDOMEN: Abdomen soft, non-tender. BACK: No CVA TTP. SKIN: No rashes and no bruising. UPPER EXTREMITIES: Upper extremities are grossly normal. LOWER EXTREMITIES: Grossly normal, no edema. NEURO EXAM: A&O x3, cranial nerves II-XII grossly intact, normal speech, moves all 4 extremities on command w/o issue. Differential diagnoses: Cellulitis, abscess, MRSA infection, DVT, necrotizing fasciitis, dermatitis, drug eruption, allergic reaction, as well as other pathologies. Course: Patient was seen and evaluated the bedside. Full history physical exam was performed. EKG: Indication: Tachycardia Normal sinus rhythm, rate of 96, normal intervals, normal axis, T wave flattening in V2 and in aVL. No significant change from comparison EKG on 04/26/2020. Imaging Studies: Radiology results as stated below per my review in the radiologist's interpretation: CT cervical spine w con, CT thoracic spine w con HISTORY: post op arthrodesis, fluid collection.. Drainage near drain upper T spine. TECHNIQUE: Multiaxial CT images of the cervical and thoracic spine are performed following the use of intravenous contrast. COMPARISON STUDY: Cervical spine CT 04/04/2020. FINDINGS: No fracture or subluxation within the cervical or thoracic spine. There is straightening of the cervical spine. Prevertebral soft tissues and the C1-C2 interval are intact. Evaluation the central canal is essentially nondiagnostic due to the CT technique. However, there is no definite central canal narrowing within the cervical or thoracic spine. Evidence for prior cholecystectomy. Anterior cervical discectomy and fusion from C4 through T1. Evidence for C7 corpectomy with bone graft. There is also posterior fusion from C5 through T3 with pedicle screws and rods. The hardware appears intact. There is a C7 laminectomy. There is a thick-walled peripherally enhancing fluid collection within the posterior soft tissues of the cervical/thoracic junction. This extends from the C4 through the T3 levels. This peripheral enhancing fluid protrusion contains a punctate focus of gas. There is a percutaneous drainage catheter well positioned within this fluid collection. This fluid collection measures approximately 13 x 3.6 x 2.6 cm. This does not appear to extend to the cervical canal or abutting the posterior fusion hardware. IMPRESSION: 1. A thick-walled peripherally enhancing fluid collection within the posterior soft tissues of the cervicothoracic junction as described above. This measures 13 x 3.6 x 2.6 cm. This contains a punctate focus of gas which could be secondary to placement of the drainage catheter. The drainage catheter appears in good position. This is nonspecific and could represent an abscess are postoperative seroma. 2. Anterior and posterior fusion hardware seen within the within the cervical and upper thoracic spine. The hardware appears intact. 3. No fractures identified within the cervical or thoracic spine. ACT 112: Negative or not required by law. Electronically signed by: Jd Sotelo M.D. 05/03/2020 8:53 PM Dictated: 05/03/202038 Transcribed: 05/03/202051 Cardiac monitoring: An order was placed for continuous cardiac monitoring. The monitor shows a rate of 96 with sinus rhythm. MDM: She does present with concern for neck drainage. After review the patient does have a TERESITA drain at the upper thoracic spine. Patient denies any numbness or tingling. Blood was obtained along with CT of the cervical and thoracic spine. Patient does have a normal white count H&H. Patient's platelet count is slightly elevated. Kidney function is unremarkable. CTs do show a rim- enhancing fluid collection that could be seroma versus abscess. Given the patient's lack of fever and white count less likely abscess but given the drainage which I did culture we will treat with antibiotics. Patient did requ nik additional pain medication. I did through the on-call spine surgeon Dr. Driscoll who agreed with current plan of care and will evaluate the patient in the morning. The patient currently does not have any deficits. I did speak with Dr. Medardo Alamo physician group hospitalist who agreed to further evaluate treat the patient. Patient was admitted to the medicine service. Past Med/Surg History Medical History Bulging of cervical intervertebral disc Cardiac murmur Not noted on exam at [facility]. Cervical stenosis of spine Menopausal symptoms Numbness and tingling in left arm [employer] Pulmonary hypertension Per patient was noted on workup for murmur. Attempted to obtain stress test patient reported was done but unable to obtain. Surgical History History of back surgery X8 LOWER History of colonoscopy Hx of cervical spine surgery Hx of cholecystectomy Hx of tubal ligation Family History Uncle Family history of diabetes mellitus Social History Preferred Language: Maori Communication Ability: Effective Head Of Loss Prevention Required: No Beliefs That Will Affect Care: Latter-Day Latter-Day Beliefs: Quaker marital status: Single Current Living Situation: Alone Feels Safe at Home: Yes Smoking Status: Current every day smoker Tobacco Type: cigarettes ; Cigarettes Per Day: 20 ; Second Hand Exposure: No ; Hx Alcohol Use: Yes Alcohol type: beer Hx Substance Use: Yes substance use type: marijuana Last Used Substance: Hours (ago) Last Used Substance Other:: this morning Allergies Allergies Allergy/AdvReac Type Severity Reaction Status Date / Time ibuprofen Allergy Severe Swelling Verified 05/03/20 22:13 of Lip/Tongue/Throat tramadol [From Ultram] Allergy Intermediate Rash Verified 05/03/20 22:13 codeine AdvReac Intermediate GI SYMPTOMS Verified 05/03/20 22:13 morphine AdvReac Intermediate GI SYMPTOMS Verified 05/03/20 22:13 Home Meds Home Medications Medication Instructions Recorded Confirmed cyclobenzaprine 10 mg PO HS PRN 02/16/20 05/03/20 oxycodone-acetaminophen [Percocet] 1 tab PO Q6 PRN 05/03/20 05/03/20 Previous Rx's Medication Instructions Recorded carisoprodol [Soma] 350 mg PO Q8 PRN #30 tab 04/13/20 gabapentin 300 mg PO TID 30 Days #90 cap 04/13/20 Results & Data (ED) Vital Signs Vital Signs - 24 hr 05/03/20 15:33 05/03/20 17:29 05/03/20 18:34 Temperature 36.9 C Temperature Source Oral Pulse Rate 122 H Pulse Rate [Right Finger] 100 H Respiratory Rate 22 16 Blood Pressure 124/84 Blood Pressure [Right Arm] 122/74 Blood Pressure Mean 97 Blood Pressure Mean [Right Arm] 90 Pulse Oximetry 98 98 99 Oxygen Delivery Method Room Air Room Air Room Air Sepsis Recent Fever Within 48 Hours No Sepsis New/Unexplained Change in Mental Status No Sepsis Action Taken by Nursing No Action Required 05/03/20 20:00 05/03/20 20:05 Temperature Temperature Source Pulse Rate Pulse Rate [Right Finger] Respiratory Rate Blood Pressure Blood Pressure [Right Arm] 119/77 178/86 H Blood Pressure Mean Blood Pressure Mean [Right Arm] 91 116 Pulse Oximetry Oxygen Delivery Method Sepsis Recent Fever Within 48 Hours Sepsis New/Unexplained Change in Mental Status Sepsis Action Taken by Custodial Medications Current Medication List: was personally reviewed by me Laboratory Data Attestation: I reviewed the patient's lab results. Result diagrams: 05/03/20 19:02 05/03/20 19:02 Lab Results 05/03/20 05/03/20 05/03/20 Range/Units 19:02 19:02 19:02 WBC 9.34 (4.8-10.8) K/uL RBC 4.28 (4.2-5.4) M/uL Hgb 12.9 (12.0-16.0) g/dL Hct 38.6 (37-47) % MCV 90.2 (80-100) fL MCH 30.1 (25-34) pg MCHC 33.4 (32-36) g/dL RDW Std Deviation 43.0 (36.4-46.3) fL RDW Coeff of Nikhil 13.1 (11.5-14.5) % Plt Count 513 H (130-400) K/uL MPV 8.6 (7.4-10.4) fL Immature Gran % (Auto) 0.3 % Neut % (Auto) 61.6 % Lymph % (Auto) 21.9 % [place] % (Auto) 8.2 % Eos % (Auto) 7.5 % Baso % (Auto) 0.5 % Immature Gran # (Auto) 0.03 H (0.00-0.02) K/uL Neut # (Auto) 5.74 (1.4-6.5) K/uL Lymph # (Auto) 2.05 (1.2-3.4) K/uL [place] # (Auto) 0.77 H (0.11-0.59) K/uL Eos # (Auto) 0.70 H (0-0.5) K/uL Baso # (Auto) 0.05 (0-0.2) K/uL PT 10.9 (9.0-12.0) Seconds INR 1.0 (0.9-1.1) Sodium 138 (136-145) mmol/L Potassium 3.5 (3.5-5.1) mmol/L Chloride 106 (98-107) mmol/L Carbon Dioxide 24 (21-32) mmol/L Anion Gap 8.0 (3-11) BUN 10 (7-18) mg/dl Creatinine 0.57 L (0.6-1.2) mg/dl Est Cr Clr Drug Dosing 116.8 ml/min Est GFR ( Amer) 128.9 Est GFR (Non-Af Amer) 111.2 BUN/Creatinine Ratio 18.2 (10-20) Glucose 92 (70-99) mg/dl Lactate (0.4-2.0) mmol/L Calcium 9.7 (8.5-10.1) mg/dl Magnesium 2.3 (1.8-2.4) mg/dl Total Bilirubin 0.3 (0.2-1) mg/dl AST 10 L (15-37) U/L ALT 19 (12-78) U/L Alkaline Phosphatase 116 (45-117) U/L Total Protein 7.5 (6.4-8.2) gm/dl Albumin 3.0 L (3.4-5.0) gm/dl Globulin 4.5 H (2.5-4.0) gm/dl Albumin/Globulin Ratio 0.7 L (0.9-2) 05/03/20 Range/Units 19:02 WBC (4.8-10.8) K/uL RBC (4.2-5.4) M/uL Hgb (12.0-16.0) g/dL Hct (37-47) % MCV (80-100) fL MCH (25-34) pg MCHC (32-36) g/dL RDW Std Deviation (36.4-46.3) fL RDW Coeff of Nikhil (11.5-14.5) % Plt Count (130-400) K/uL MPV (7.4-10.4) fL Immature Gran % (Auto) % Neut % (Auto) % Lymph % (Auto) % [place] % (Auto) % Eos % (Auto) % Baso % (Auto) % Immature Gran # (Auto) (0.00-0.02) K/uL Neut # (Auto) (1.4-6.5) K/uL Lymph # (Auto) (1.2-3.4) K/uL [place] # (Auto) (0.11-0.59) K/uL Eos # (Auto) (0-0.5) K/uL Baso # (Auto) (0-0.2) K/uL PT (9.0-12.0) Seconds INR (0.9-1.1) Sodium (136-145) mmol/L Potassium (3.5-5.1) mmol/L Chloride (98-107) mmol/L Carbon Dioxide (21-32) mmol/L Anion Gap (3-11) BUN (7-18) mg/dl Creatinine (0.6-1.2) mg/dl Est Cr Clr Drug Dosing ml/min Est GFR ( Amer) Est GFR (Non-Af Amer) BUN/Creatinine Ratio (10-20) Glucose (70-99) mg/dl Lactate 1.1 (0.4-2.0) mmol/L Calcium (8.5-10.1) mg/dl Magnesium (1.8-2.4) mg/dl Total Bilirubin (0.2-1) mg/dl AST (15-37) U/L ALT (12-78) U/L Alkaline Phosphatase (45-117) U/L Total Protein (6.4-8.2) gm/dl Albumin (3.4-5.0) gm/dl Globulin (2.5-4.0) gm/dl Albumin/Globulin Ratio (0.9-2) Administered Medications Piperacillin Sod/Tazobactam Sod (Zosyn) 4.5 gm in 120 mls @ 240 mls/hr IV NOW ONE Stop: 05/03/20 22:25 Last Admin: 05/03/20 22:15 Dose: 240 mls/hr Documented by: [id number] Ioversol (Optiray 320 100ml) 90 ml IV ONCE PRN PRN Reason: Interaction Checking Stop: 05/07/20 20:20 Last Admin: 05/03/20 20:21 Dose: 90 ml Documented by: [id number] Discontinued Medications Acetaminophen (Tylenol) 1,000 mg PO NOW STA Stop: 05/03/20 21:04 Last Admin: 05/03/20 21:23 Dose: 1,000 mg Documented by: [id number] Fentanyl Citrate (Fentanyl Citrate) 75 mcg IV NOW STA Stop: 05/03/20 17:32 Last Admin: 05/03/20 19:25 Dose: 75 mcg Documented by: [id number] Fentanyl Citrate (Fentanyl Citrate) 100 mcg IV NOW STA Stop: 05/03/20 21:04 Last Admin: 05/03/20 21:23 Dose: 100 mcg Documented by: [id number] Sodium Chloride (Nss 1000ml) 1,000 mls @ 999 mls/hr IV .Q1H1M TOBI Stop: 05/03/20 18:30 Last Infusion: 05/03/20 20:30 Dose: 0 mls/hr Documented by: [id number] Admin: 05/03/20 19:21 Dose: 999 mls/hr Documented by: [id number] Sodium Chloride (Nss 1000ml) 500 mls @ 999 mls/hr IV .Q31M ONE Stop: 05/03/20 21:33 Last Admin: 05/03/20 21:23 Dose: 999 mls/hr Documented by: [id number] Ondansetron HCl (Zofran) 4 mg IV NOW STA Stop: 05/03/20 17:30 Last Admin: 05/03/20 19:24 Dose: 4 mg Documented by: [id number] Discharge Plan Visit Data Chief Complaint: Infection, Wound Stated Complaint: INFECTION IN BACK ED Provider: Randolph Velazquez Discharge Problem: Fluid collection at surgical site, Post-op pain, Thrombocytosis Patient Disposition: Admitted As Inpatient Forms Stand Alone Forms: [facility] Prescriptions Prescriptions: No Action cyclobenzaprine 10 mg Tablet 10 mg PO HS PRN (Reason: Pain) RF: 0 carisoprodol [Soma] 350 mg Tablet 350 mg PO Q8 PRN (Reason: muscle pain) Qty: 30 RF: 0 gabapentin 300 mg Capsule 300 mg PO TID 30 Days Qty: 90 RF: 0 oxycodone-acetaminophen [Percocet] 10-325 mg tablet 1 tab PO Q6 PRN (Reason: Pain) RF: 0 Referrals Referrals: Royer Gutiérrez DO [Primary Care Provider] - Discharge Problem: Fluid collection at surgical site Qualifiers: Encounter type: initial encounter Qualified Code(s): T88.8XXA - Other specified complications of surgical and medical care, not elsewhere classified, initial encounter
[2020-05-03] MEDS ORDERED: ONDANSETRON INJ 2 MG/ML 2 ML VIAL IV STA (17:29)
[2020-05-03] MEDS ORDERED: SODIUM CHLORIDE 0.9% 1000ML 1,000 ML IV SCH (17:30)
[2020-05-03] MEDS ORDERED: fentaNYL citrate 100 MCG/2 ML VIAL IV STA ×2 (17:31→21:03)
[2020-05-03 19:13] LABS: Basophils # (auto) 0.05 K/uL (0-0.2); Basophils % (auto) 0.5 %; Eosinophils % (auto) 7.5 %; Hematocrit (blood only) 38.6 % (37-47); Hemoglobin 12.9 g/dL (12.0-16.0); Immature Granulocytes # (auto) 0.03 K/uL (0.00-0.02); Immature Granulocytes % (auto) 0.3 %; Lymphocytes # (auto) 2.05 K/uL (1.2-3.4); Lymphocytes % (auto) 21.9 %; Mean Corpuscular Hemoglobin 30.1 pg (25-34); Mean Corpuscular Hgb Conc 33.4 g/dL (32-36); Mean Corpuscular Volume 90.2 fL (80-100); Mean Platelet Volume 8.6 fL (7.4-10.4); Monocytes # (auto) 0.77 K/uL (0.11-0.59); Monocytes % (auto) 8.2 %; Neutrophils # (auto) 5.74 K/uL (1.4-6.5); Neutrophils % (auto) 61.6 %; Platelet Count 513 K/uL (130-400); RDW Coefficient of Variation 13.1 % (11.5-14.5); Red Blood Count 4.28 M/uL (4.2-5.4); White Blood Count 9.34 K/uL (4.8-10.8)
[2020-05-03 19:24] LABS: Prothrombin Time 10.9 Seconds (9.0-12.0)
[2020-05-03 19:30] LABS: BUN Creatinine Ratio 18.2 (10-20); Calcium 9.7 mg/dl (8.5-10.1); Creatinine Clr Calc Pharmacy 116.8 ml/min; Est GFR (African American) 128.9; Est GFR (Non-African American) 111.2; Magnesium 2.3 mg/dl (1.8-2.4); Potassium 3.5 mmol/L (3.5-5.1)
[2020-05-03 19:32] LABS: Albumin Globulin Ratio 0.7 (0.9-2); Bilirubin,Total 0.3 mg/dl (0.2-1); Globulin 4.5 gm/dl (2.5-4.0); Total Protein 7.5 gm/dl (6.4-8.2)
[2020-05-03] MEDS ORDERED: IOVERSOL 100ml IV PRN (20:21)
--- NOTE | 2020-05-03 20:54 | CT Scan Report ---
CT cervical spine w con, CT thoracic spine w con HISTORY: post op arthrodesis, fluid collection.. Drainage near drain upper T spine. TECHNIQUE: Multiaxial CT images of the cervical and thoracic spine are performed following the use of intravenous contrast. COMPARISON STUDY: Cervical spine CT 04/04/2020. FINDINGS: No fracture or subluxation within the cervical or thoracic spine. There is straightening of the cervical spine. Prevertebral soft tissues and the C1-C2 interval are intact. Evaluation the cent ral canal is essentially nondiagnostic due to the CT technique. However, there is no definite central canal narrowing within the cervical or thoracic spine. Evidence for prior cholecystectomy. Anterior cervical discectomy and fusion from C4 through T1. Evidence for C7 corpectomy with bone graft. There is also posterior fusion from C5 through T3 with pedicle screws and rods. The hardware appears intact . There is a C7 laminectomy. There is a thick-walled peripherally enhancing fluid collection within t he posterior soft tissues of the cervical/thoracic junction. This extends from the C4 through the T3 levels. This peripheral enhancing fluid protrusion contains a punctate focus of gas. There is a percu taneous drainage catheter well positioned within this fluid collection. This fluid collection measure s approximately 13 x 3.6 x 2.6 cm. This does not appear to extend to the cervical canal or abutting t he posterior fusion hardware. IMPRESSION: 1. A thick-walled peripherally enhancing fluid collection within the posterior soft tissues of the ce rvicothoracic junction as described above. This measures 13 x 3.6 x 2.6 cm. This contains a punctate focus of gas which could be secondary to placement of the drainage catheter. The drainage catheter ap pears in good position. This is nonspecific and could represent an abscess are postoperative seroma. 2. Anterior and posterior fusion hardware seen within the within the cervical and upper thoracic spin e. The hardware appears intact. 3. No fractures identified within the cervical or thoracic spine. ACT 112: Negative or not required by law. Electronically signed by: Jd Sotelo M.D. 05/03/2020 8:53 PM
[2020-05-03] MEDS ORDERED: ACETAMINOPHEN 500 MG TAB PO STA (21:03)
[2020-05-03] MEDS ORDERED: SODIUM CHLORIDE 0.9% 1000ML 500 ML IV ONE (21:03)
[2020-05-03] MEDS ORDERED: PIPERACILL/TAZOBAC CONSULT ACTIVE PRN (21:56)
[2020-05-03] MEDS ORDERED: VANCOMYCIN CONSULT ACTIVE PRN (21:56)
[2020-05-03] MEDS ORDERED: PIPERACILLIN/TAZOBACTAM 4.5 GM/120 ML BAG IV ONE (21:56)
[2020-05-03] MEDS ORDERED: VANCOMYCIN HCL 1,750 MG in SODIUM CHLORIDE 0.9% 500 ML IV ONE (21:56)
[2020-05-04] MEDS ORDERED: VANCOMYCIN CONSULT ACTIVE PRN (01:07)
[2020-05-04] MEDS ORDERED: PIPERACILL/TAZOBAC CONSULT ACTIVE PRN (01:07)
[2020-05-04] MEDS ORDERED: ACETAMINOPHEN 325 MG TAB PO PRN (01:07)
--- NOTE | 2020-05-04 01:15 | History & Physical Report ---
Date of Service May 03, 2020 Assessment & Plan (1) Fluid collection at surgical site: Fairly large fluid collection noted on CT at surgical site. TERESITA drain still in place with minimal output. Patient is afebrile, HD stable, non-toxic in appearance, no leukocytosis. ?abscess vs most likely a seroma. -Admit to medical floor -NPO for now -Consult Orthopedic Surgery -Neuro checks q 4 hours -Continue empiric antibiotics for now - Vancomycin and Zosyn -Pain control with Tylenol, Flexeril, Neurontin, Percocet and Dilaudid PRN -Follow culture results Present on Admission?: Yes (2) Cervical pain: As above, continue home medication regimen, Tylenol/Percocet/Flexeril/Neurontin Dilaudid PRN F/E/N - Heplock. Monitor electrolytes. NPO Code - DNR/DNI Dispo - Admit to medical floor Admission and Anticipated Discharge Date Admission Date: 05/03/20 Anticipated date of discharge: 05/06/20 History of Present Illness Chief Complaint: Neck pain, drainage from surgical site Primary Care Provider: Royer Gutiérrez Sanam Morales is a 44yo C female with history of multiple back surgeries in the past, most recently posterior cervical decompression and fusion C6-7, p osterior cervical fusion C5-T3 with placement of posterior segmental instrumentation rods/screws at C5-T3 performed by Dr. Driscoll on 04/11/20. Surgery was well tolerated. She returned to the OR on 04/18/20 for I&D of cervical seroma with placement of vancomycin/gentamicin impregnated beads. Patient had been doing fairly well at home until yesterday when she ran out of pain pills. She states she was unable to get a timely refill on her pain medications. She also noted some increased drainage from her surgical site noticed by her Home Health Nurse today. She denies fevers/chills/malaise/naus ea/vomiting. She does not believe that the drainage is foul smelling but states that it was "definitely pus". She has a TERESITA drain in place with minimal serous output. She reports severe neck pain and spasm. Denies numbness/tingling/weakness of the arms/hands. No additional complaints at this time. ER Course: Vancomycin, Zosyn, Fentanyl Allergies Allergy/AdvReac Type Severity Reaction Status Date / Time ibuprofen Allergy Severe Swelling Verified 05/03/20 22:13 of Lip/Tongue/Throat tramadol [From Ultram] Allergy Intermediate Rash Verified 05/03/20 22:13 codeine AdvReac Intermediate GI SYMPTOMS Verified 05/03/20 22:13 morphine AdvReac Intermediate GI SYMPTOMS Verified 05/03/20 22:13 Home Medications Home Medications Medication Instructions Recorded Confirmed Type cyclobenzaprine 10 mg PO HS PRN 02/16/20 05/03/20 History carisoprodol [Soma] 350 mg PO Q8 PRN #30 tab 04/13/20 05/03/20 Rx gabapentin 300 mg PO TID 30 Days #90 cap 04/13/20 05/03/20 Rx oxycodone-acetaminophen [Percocet] 1 tab PO Q6 PRN 05/03/20 05/03/20 History Past Med/Surg History Medical History Bulging of cervical intervertebral disc Cardiac murmur Not noted on exam at [facility]. 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 Attempted to obtain stress test patient reported was done but unable to obtain. 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 Beliefs That Will Affect Care: Synagogue Synagogue Beliefs: Lutheran marital status: Single Current Living Situation: Alone Feels Safe at Home: Yes Smoking Status: Current every day smoker Tobacco Type: cigarettes ; Cigarettes Per Day: 20 ; Second Hand Exposure: No ; Hx Alcohol Use: Yes Alcohol type: beer Hx Substance Use: Yes substance use type: marijuana Last Used Substance: Hours (ago) Last Used Substance Other:: this morning Review of Systems Review of Systems: All systems reviewed & are unremarkable except as noted in HPI & below Physical Exam Physical Exam: General: patient appears uncomfortable, NAD, AA&O x 4, answers questions and follows commands HEENT: NC/AT, PERRL, EOMI, anicteric sclera, conjunctiva without injection, external ear normal to inspection and nontender, nares patent, moist mucus membranes, dentition intact, no oropharyngeal lesions, neck supple, trachea midline, no LAD, no thyromegaly, no JVD Heart: +S1/S2, regular, no m/r/g Lungs: equal air entry bilaterally, no rales/rhonchi/wheezes Abd: +BS, soft, NT/ND, no masses/organomegaly/ascites Ext: warm, 2+ pulses in UE/LE bilaterally, no clubbing/cyanosis or edema Neuro: nonfocal, patient AA&O x 4, speech intact, no facial droop, moving all extremities on command with equal strength 5/5 Neck: surgical wound with no bleeding/drainage. Mild erythema surrounding wound. TERESITA drain in place with mild surrounding erythema at entry site, no purulence expressed, no foul smell Results & Data Results & Data ([facility]) Vital Signs (Past 12 Hours) Vital Signs Temp Pulse Pulse Resp BP BP Pulse Ox 05/04/20 00:29 107/70 05/04/20 00:00 16 107/70 99 05/03/20 22:00 100 H 16 112/67 05/03/20 20:05 178/86 H 05/03/20 20:00 119/77 05/03/20 18:34 100 H 16 122/74 99 05/03/20 17:29 98 05/03/20 15:33 36.9 C 122 H 22 124/84 98 Laboratory Results Lab Results 05/03/20 05/03/20 05/03/20 Range/Units 19:02 19:02 19:02 WBC 9.34 (4.8-10.8) K/uL RBC 4.28 (4.2-5.4) M/uL Hgb 12.9 (12.0-16.0) g/dL Hct 38.6 (37-47) % MCV 90.2 (80-100) fL MCH 30.1 (25-34) pg MCHC 33.4 (32-36) g/dL RDW Std Deviation 43.0 (36.4-46.3) fL RDW Coeff of Nikhil 13.1 (11.5-14.5) % Plt Count 513 H (130-400) K/uL MPV 8.6 (7.4-10.4) fL Immature Gran % (Auto) 0.3 % Neut % (Auto) 61.6 % Lymph % (Auto) 21.9 % Stanly % (Auto) 8.2 % Eos % (Auto) 7.5 % Baso % (Auto) 0.5 % Immature Gran # (Auto) 0.03 H (0.00-0.02) K/uL Neut # (Auto) 5.74 (1.4-6.5) K/uL Lymph # (Auto) 2.05 (1.2-3.4) K/uL Stanly # (Auto) 0.77 H (0.11-0.59) K/uL Eos # (Auto) 0.70 H (0-0.5) K/uL Baso # (Auto) 0.05 (0-0.2) K/uL PT 10.9 (9.0-12.0) Seconds INR 1.0 (0.9-1.1) Sodium 138 (136-145) mmol/L Potassium 3.5 (3.5-5.1) mmol/L Chloride 106 (98-107) mmol/L Carbon Dioxide 24 (21-32) mmol/L Anion Gap 8.0 (3-11) BUN 10 (7-18) mg/dl Creatinine 0.57 L (0.6-1.2) mg/dl Est Cr Clr Drug Dosing 116.8 ml/min Est GFR ( Amer) 128.9 Est GFR (Non-Af Amer) 111.2 BUN/Creatinine Ratio 18.2 (10-20) Glucose 92 (70-99) mg/dl Lactate (0.4-2.0) mmol/L Calcium 9.7 (8.5-10.1) mg/dl Magnesium 2.3 (1.8-2.4) mg/dl Total Bilirubin 0.3 (0.2-1) mg/dl AST 10 L (15-37) U/L ALT 19 (12-78) U/L Alkaline Phosphatase 116 (45-117) U/L Total Protein 7.5 (6.4-8.2) gm/dl Albumin 3.0 L (3.4-5.0) gm/dl Globulin 4.5 H (2.5-4.0) gm/dl Albumin/Globulin Ratio 0.7 L (0.9-2) 05/03/20 Range/Units 19:02 WBC (4.8-10.8) K/uL RBC (4.2-5.4) M/uL Hgb (12.0-16.0) g/dL Hct (37-47) % MCV (80-100) fL MCH (25-34) pg MCHC (32-36) g/dL RDW Std Deviation (36.4-46.3) fL RDW Coeff of Nikhil (11.5-14.5) % Plt Count (130-400) K/uL MPV (7.4-10.4) fL Immature Gran % (Auto) % Neut % (Auto) % Lymph % (Auto) % Stanly % (Auto) % Eos % (Auto) % Baso % (Auto) % Immature Gran # (Auto) (0.00-0.02) K/uL Neut # (Auto) (1.4-6.5) K/uL Lymph # (Auto) (1.2-3.4) K/uL Stanly # (Auto) (0.11-0.59) K/uL Eos # (Auto) (0-0.5) K/uL Baso # (Auto) (0-0.2) K/uL PT (9.0-12.0) Seconds INR (0.9-1.1) Sodium (136-145) mmol/L Potassium (3.5-5.1) mmol/L Chloride (98-107) mmol/L Carbon Dioxide (21-32) mmol/L Anion Gap (3-11) BUN (7-18) mg/dl Creatinine (0.6-1.2) mg/dl Est Cr Clr Drug Dosing ml/min Est GFR ( Amer) Est GFR (Non-Af Amer) BUN/Creatinine Ratio (10-20) Glucose (70-99) mg/dl Lactate 1.1 (0.4-2.0) mmol/L Calcium (8.5-10.1) mg/dl Magnesium (1.8-2.4) mg/dl Total Bilirubin (0.2-1) mg/dl AST (15-37) U/L ALT (12-78) U/L Alkaline Phosphatase (45-117) U/L Total Protein (6.4-8.2) gm/dl Albumin (3.4-5.0) gm/dl Globulin (2.5-4.0) gm/dl Albumin/Globulin Ratio (0.9-2) Diagnostic Findings CT cervical spine w con, CT thoracic spine w con HISTORY: post op arthrodesis, fluid collection.. Drainage near drain upper T spine. TECHNIQUE: Multiaxial CT images of the cervical and thoracic spine are performed following the use of intravenous contrast. COMPARISON STUDY: Cervical spine CT 04/04/2020. FINDINGS: No fracture or subluxation within the cervical or thoracic spine. There is straightening of the cervical spine. Prevertebral soft tissues and the C1-C2 interval are intact. Evaluation the central canal is essentially nondiagnostic due to the CT technique. However, there is no definite central canal narrowing within the cervical or thoracic spine. Evidence for prior cholecystectomy. Anterior cervical discectomy and fusion from C4 through T1. Evidence for C7 corpectomy with bone graft. There is also posterior fusion from C5 through T3 with pedicle screws and rods. The hardware appears intact. There is a C7 laminectomy. There is a thick-walled peripherally enhancing fluid collection within the posterior soft tissues of the cervical/thoracic junction. This extends from the C4 through the T3 levels. This peripheral enhancing fluid protrusion contains a punctate focus of gas. There is a percutaneous drainage catheter well positioned within this fluid collection. This fluid collection measures approximately 13 x 3.6 x 2.6 cm. This does not appear to extend to the cervical canal or abutting the posterior fusion hardware. IMPRESSION: 1. A thick-walled peripherally enhancing fluid collection within the posterior soft tissues of the cervicothoracic junction as described above. This measures 13 x 3.6 x 2.6 cm. This contains a punctate focus of gas which could be secondary to placement of the drainage catheter. The drainage catheter appears in good position. This is nonspecific and could represent an abscess are postoperative seroma. 2. Anterior and posterior fusion hardware seen within the within the cervical and upper thoracic spine. The hardware appears intact. 3. No fractures identified within the cervical or thoracic spine. ACT 112: Negative or not required by law. Electronically signed by: Jd Sotelo M.D. 05/03/2020 8:53 PM Dictated: 05/03/202038 Transcribed: 05/03/202051 cervical spine w con, CT thoracic spine w con HISTORY: post op arthrodesis, fluid collection.. Drainage near drain upper T spine. TECHNIQUE: Multiaxial CT images of the cervical and thoracic spine are performed following the use of intravenous contrast. COMPARISON STUDY: Cervical spine CT 04/04/2020. FINDINGS: No fracture or subluxation within the cervical or thoracic spine. There is straightening of the cervical spine. Prevertebral soft tissues and the C1-C2 interval are intact. Evaluation the central canal is essentially nondiagnostic due to the CT technique. However, there is no definite central canal narrowing within the cervical or thoracic spine. Evidence for prior cholecystectomy. Anterior cervical discectomy and fusion from C4 through T1. Evidence for C7 corpectomy with bone graft. There is also posterior fusion from C5 through T3 with pedicle screws and rods. The hardware appears intact. There is a C7 laminectomy. There is a thick-walled peripherally enhancing fluid collection within the posterior soft tissues of the cervical/thoracic junction. This extends from the C4 through the T3 levels. This peripheral enhancing fluid protrusion contains a punctate focus of gas. There is a percutaneous drainage catheter well positioned within this fluid collection. This fluid collection measures approximately 13 x 3.6 x 2.6 cm. This does not appear to extend to the cervical canal or abutting the posterior fusion hardware. IMPRESSION: 1. A thick-walled peripherally enhancing fluid collection within the posterior soft tissues of the cervicothoracic junction as described above. This measures 13 x 3.6 x 2.6 cm. This contains a punctate focus of gas which could be secondary to placement of the drainage catheter. The drainage catheter appears in good position. This is nonspecific and could represent an abscess are postoperative seroma. 2. Anterior and posterior fusion hardware seen within the within the cervical and upper thoracic spine. The hardware appears intact. 3. No fractures identified within the cervical or thoracic spine. ACT 112: Negative or not required by law. Electronically signed by: Jd Sotelo M.D. 05/03/2020 8:53 PM Dictated: 05/03/202038 Transcribed: 05/03/202051 Code Status & VTE Plan Code Status DNR/DNI PG Care Time/CCT Total # of Minutes Spent Total Time Spent with Patient: Total time spent is greater than 50% in coordination of care (as documented) at patient's floor/unit and/or counseling patient: Coding Level of Care Code 29680 Initial Inpt Care Lvl 2 Diagnoses Fluid collection at surgical site T88.8XXA Encounter type: initial encounter Cervical pain M54.2 (1) Fluid collection at surgical site Encounter type: initial encounter Qualified Code(s): T88.8XXA - Other specified complications of surgical and medical care, not elsewhere classified, initial encounter
[2020-05-04] MEDS: HYDROmorphone INJ 0.5 MG/0.5 ML SYR IV PRN ×6 (01:30→22:55)
[2020-05-04] MEDS: CYCLOBENZAPRINE HCL 10 MG TAB PO PRN ×2 (03:00→23:38)
[2020-05-04] MEDS: OXYCODONE/ACETAMINOPHEN 10-325 TAB PO PRN (03:00)
[2020-05-04] MEDS: PIPERACILLIN/TAZOBACTAM 3.375 GM in DEXTROSE 5% 100 ML IV SCH ×3 (04:23→20:43)
--- NOTE | 2020-05-04 05:34 | Pharmacy Report ---
Pharmacy Abx Initial Consult - Date of Service May 04, 2020 - Pharmacy Dosing Scope Date of Consult: 05/04/20 Consultation requested by: Dr. Snehal Batres Pharmacy is consulted to continue IV Vancomycin and Zosyn dosing therapy, order appropriate labs and adjust drug dose/frequency. - Subjective The patient is a 44 year old F admitted on 05/03/20 22:56 with pain, fever and chills. She is s/p I&D for a cervical seroma on 04/18/20 with placement of Gentamicin & Vancomycin beads by Dr. Driscoll. She presents with possible abscess/seroma and admitted by Dr. Batres to medical floor on empiric broad spectrum antibiotics both dosed by pharmacy (Vancomycin & Zosyn) - Objective Height: 5 ft 3 in Weight: 73.8 kg Vital Signs (Past 12hrs): Vital Signs Temp Pulse Resp BP BP BP Pulse Ox 05/04/20 01:05 36.6 C 87 16 135/85 99 05/04/20 00:29 107/70 05/04/20 00:00 16 107/70 99 05/03/20 22:00 100 H 16 112/67 05/03/20 20:05 178/86 H 05/03/20 20:00 119/77 05/03/20 18:34 100 H 16 122/74 99 05/03/20 17:29 98 Lab Results (24hrs): Laboratory Tests (24 Hours) 05/03/20 05/03/20 19:02 19:02 WBC 9.34 Neut # (Auto) 5.74 Creatinine 0.57 L Est Cr Clr Drug Dosing 116.8 Micro Results: 05/03/20 19:02 Aerobic Blood Culture - Pending Blood Anaerobic Blood Culture - Pending 05/03/20 19:02 Aerobic Blood Culture - Pending Blood Anaerobic Blood Culture - Pending 05/03/20 17:48 Gram Stain - Pending Back,Upper Wound Culture - Pending - Risk Factors for Resistance * Hospitalization for 48 hours or more within the past 90 days - Assessment & Plan Assessment 44 year old F with possible abscess/seroma of cervical area Plan Vancomycin IV * Estimated PK Parameters: Vd 0.7 L/kg, John 1.0 hr-1, t1/2 6.93 hr * Loading dose: 1750 mg (~25 mg/kg) in the ED * Maintenance dose: 1250mg IV (~17 mg/kg) every 8 hours * Goal trough level: 15-20 mcg/mL * Troughlevel ordered prior to 1000 dose on 05/05/20 * AUC dosing nomogram has been utilized for this patient. Piperacillin/tazobactam * 4.5 g bolus administered over 30 minutes, (in ED) then 3.375g IV extended infusion every 8 hours for CrCl greater than 20 mL/min Pharmacy will continue to follow and will adjust dose/frequency as necessary. Thank you.
[2020-05-04] MEDS ORDERED: ONDANSETRON INJ 2 MG/ML 2 ML VIAL IV PRN (08:14)
[2020-05-04 08:27] LABS: Creatinine Clr Calc Pharmacy 120.8 ml/min; Est GFR (African American) 129.6; Est GFR (Non-African American) 111.8
[2020-05-04] MEDS: NICOTINE 21 MG/24 HR TDSY TD SCH (08:27)
[2020-05-04 08:54] LABS: Appearance Urine Cloudy (Clear); Bacteria Urine Automated Negative (Negative); Bilirubin Urine Negative (Negative); Blood Urine Negative (Negative); Color Urine Yellow; Epithelial Cell Urine Auto >30 /lpf (0-5); Glucose Urine UA Negative (Negative); Ketones Urine Negative (Negative); Leukocyte Esterase Urine Trace (Negative); Nitrite Urine Negative (Negative); Protein Urine Negative (Negative); RBC Urine Automated 0-4 /hpf (0-4); Urobilinogen Urine Negative (Negative)
--- NOTE | 2020-05-04 09:06 | Electrocardiogram Report ---
Test Reason : Blood Pressure : / mmHG Vent. Rate : 096 BPM Atrial Rate : 096 BPM P-R Int : 130 ms QRS Dur : 084 ms QT Int : 360 ms P-R-T Axes : 085 077 058 degrees QTc Int : 454 ms Normal sinus rhythm Possible Left atrial enlargement Borderline ECG When compared with ECG of 26-APR-2020 14:11, No significant change was found Confirmed by Quentin Webber ([id number]) on 05/04/2020 9:06:07 AM Referred By: REFERRED SELF Confirmed By:Quentin Webber
--- NOTE | 2020-05-04 10:11 | Orthopedic Consultation ---
Date of Consultation May 04, 2020 Assessment & Plan (1) Status post cervical spinal arthrodesis: I did remove her drain today. I recommend that she continue on the IV antibiotics. We will assess her response to this over the next 24 to 48 hours. We may have to consider a formal irrigation debridement again of the posterior cervical incision. If this is required she may have to have a wound VAC. Of note she does have antibiotic beads in the deep tissues of the posterior cervical spine. I suspect any infection is superficial nature owing around the drain site. Present on Admission?: Yes History of Present Illness Reason for Consultation: Neck pain Attending Physician: Max Alanis History of Present Illness This is a 44-year-old female known to me the presents the emergency room last night with worsening neck pain concerns of infection involving the posterior cervical incision. This morning she says pain mostly in the posterior cervical region. Denies any arm pain or weakness. She denies any swallowing difficulties. Allergies Allergy/AdvReac Type Severity Reaction Status Date / Time ibuprofen Allergy Severe Swelling Verified 05/03/20 22:13 of Lip/Tongue/Throat tramadol [From Ultram] Allergy Intermediate Rash Verified 05/03/20 22:13 codeine AdvReac Intermediate GI SYMPTOMS Verified 05/03/20 22:13 morphine AdvReac Intermediate GI SYMPTOMS Verified 05/03/20 22:13 Home Medications Home Medications Medication Instructions Recorded Confirmed Type cyclobenzaprine 10 mg PO HS PRN 02/16/20 05/03/20 History carisoprodol [Soma] 350 mg PO Q8 PRN #30 tab 04/13/20 05/03/20 Rx gabapentin 300 mg PO TID 30 Days #90 cap 04/13/20 05/03/20 Rx oxycodone-acetaminophen [Percocet] 1 tab PO Q6 PRN 05/03/20 05/03/20 History Patient History Medical History Bulging of cervical intervertebral disc Cardiac murmur Not noted on exam at [facility]. 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 Attempted to obtain stress test patient reported was done but unable to obtain. Surgical History History of back surgery X8 LOWER History of colonoscopy Hx of cervical spine surgery Hx of cholecystectomy Hx of tubal ligation Family History Uncle Family history of diabetes mellitus Social History Preferred Language: Sinhala Communication Ability: Effective Or Manager Required: No Beliefs That Will Affect Care: Scientology Scientology Beliefs: Judaism marital status: Single Current Living Situation: Alone Feels Safe at Home: Yes Smoking Status: Former smoker Tobacco Type: cigarettes ; Cigarettes Per Day: 20 ; Second Hand Exposure: No ; Hx Alcohol Use: No Hx Substance Use: Yes substance use type: marijuana Last Used Substance: Just Prior to Arrival Physical Exam Physical Exam: On exam the incision appears to be healing appropriately. There is erythema around the drain site. The drain does not appear to be functioning. She is markedly tender to even modest touch of the skin. She has excellent strength testing upper extremities. Results & Data ([facility]) Vital Signs (Past 12 Hours) Vital Signs Temp Pulse Resp BP BP BP Pulse Ox 05/04/20 07:23 36.4 C L 71 16 120/80 98 05/04/20 01:05 36.6 C 87 16 135/85 99 05/04/20 00:29 107/70 05/04/20 00:00 16 107/70 99
[2020-05-04] MEDS: GABAPENTIN 300 MG CAP PO SCH ×3 (10:24→20:22)
[2020-05-04] MEDS: VANCOMYCIN HCL 1,250 MG in SODIUM CHLORIDE 0.9% 250 ML IV SCH ×2 (10:25→18:04)
--- NOTE | 2020-05-04 22:55 | Hospitalist Progress Note ---
Date of Service May 04, 2020 Assessment & Plan (1) Fluid collection at surgical site: Fairly large fluid collection noted on CT at surgical site. TERESITA drain still in place with minimal output. Patient is afebrile, HD stable, non-toxic in appearance, no leukocytosis. ?abscess vs most likely a seroma. -Admit to medical floor -Consult Orthopedic Surgery -Appreciate input: no surgical intervention at this moment. Awaiting to see if patient improves with antibiotics. -Continue empiric antibiotics for now - Vancomycin and Zosyn -Pain control with Tylenol, Flexeril, Neurontin, Percocet and Dilaudid PRN -Follow culture results (2) Cervical pain: As above, continue home medication regimen, Tylenol/Percocet/Flexeril/Neurontin Dilaudid PRN F/E/N - Heplock. Monitor electrolytes. NPO Code - DNR/DNI Dispo - Admit to medical floor Admission and Anticipated Discharge Date Admission Date: May 03, 2020 Subjective Patient reports having intermittent pain in her neck, it is mildly better today however. No new complaints. Review of Systems Review of Systems: All systems reviewed & are unremarkable except as noted in HPI & below Physical Exam Physical Exam: General: patient appears uncomfortable, NAD, AA&O x 4, answers questions and follows commands HEENT: NC/AT, PERRL, EOMI, anicteric sclera, conjunctiva without injection, external ear normal to inspection and nontender, nares patent, moist mucus membranes, dentition intact, no oropharyngeal lesions, neck supple, trachea midline, no LAD, no thyromegaly, no JVD Heart: +S1/S2, regular, no m/r/g Lungs: equal air entry bilaterally, no rales/rhonchi/wheezes Abd: +BS, soft, NT/ND, no masses/organomegaly/ascites Ext: warm, 2+ pulses in UE/LE bilaterally, no clubbing/cyanosis or edema Neuro: nonfocal, patient AA&O x 4, speech intact, no facial droop, moving all extremities on command with equal strength 5/5 Neck: surgical wound with no bleeding/drainage. Mild erythema surrounding wound. TERESITA drain in place, no purulence expressed, no foul smell Results & Data Results & Data ([facility]) Vital Signs (Past 12 Hours) Vital Signs Temp Pulse Resp BP Pulse Ox 05/04/20 15:26 36.4 C L 70 16 126/77 100 PG Care Time/CCT Total # of Minutes Spent Total Time Spent with Patient: Total time spent is greater than 50% in coordination of care (as documented) at patient's floor/unit and/or counseling patient: Coding Level of Care Code 14562 Subseq Hosp Care Lvl 3 Diagnoses Fluid collection at surgical site T88.8XXA Encounter type: initial encounter Cervical pain M54.2 Time Spent (min) 35 (1) Fluid collection at surgical site Encounter type: initial encounter Qualified Code(s): T88.8XXA - Other specified complications of surgical and medical care, not elsewhere classified, initial encounter
[2020-05-05] MEDS: OXYCODONE/ACETAMINOPHEN 10-325 TAB PO PRN (01:36)
[2020-05-05] MEDS: VANCOMYCIN HCL 1,250 MG in SODIUM CHLORIDE 0.9% 250 ML IV SCH ×2 (01:37→10:04)
[2020-05-05] MEDS: HYDROmorphone INJ 0.5 MG/0.5 ML SYR IV PRN ×7 (03:03→23:08)
[2020-05-05] MEDS: PIPERACILLIN/TAZOBACTAM 3.375 GM in DEXTROSE 5% 100 ML IV SCH ×3 (03:55→20:51)
[2020-05-05 06:34] LABS: Creatinine Clr Calc Pharmacy 114.7 ml/min; Est GFR (African American) 127.4; Est GFR (Non-African American) 109.9
--- NOTE | 2020-05-05 08:17 | Orthopedic Progress Note ---
Date of Service May 05, 2020 Assessment & Plan (1) Fluid collection at surgical site: I have discussed with the patient treatment plan of possibly continue with antibiotics for a period of time. She fails to respond she may require a second debridement which would end up with possible wound VAC. Clearly would like to avoid this if possible. We will assess her response over the next few days to IV antibiotics. Present on Admission?: Yes Admission and Anticipated Discharge Date Admission Date: May 03, 2020 Anticipated date of discharge: 05/06/20 Subjective Patient complaining of neck pain and poor pain control. She denies any arm symptoms today. Physical Exam Physical Exam: On exam incision is intact. Very little erythema. No appreciable drainage today. She is exquisitely tender to even light touch. Results & Data ([facility]) Vital Signs (Past 12 Hours) Vital Signs Temp Pulse Resp BP Pulse Ox 05/05/20 08:00 36.7 C 70 16 136/83 98 05/04/20 23:50 36.6 C 79 16 101/61 97 (1) Fluid collection at surgical site Encounter type: initial encounter Qualified Code(s): T88.8XXA - Other specified complications of surgical and medical care, not elsewhere classified, initial encounter
[2020-05-05] MEDS: NICOTINE 21 MG/24 HR TDSY TD SCH (08:45)
[2020-05-05] MEDS: GABAPENTIN 300 MG CAP PO SCH ×3 (08:47→20:51)
[2020-05-05] MEDS ORDERED: VANCOMYCIN TROUGH ONE (09:30)
[2020-05-05] MEDS: CYCLOBENZAPRINE HCL 10 MG TAB PO PRN (20:50)
--- NOTE | 2020-05-05 22:22 | Hospitalist Progress Note ---
Date of Service May 05, 2020 Assessment & Plan (1) Fluid collection at surgical site: Fairly large fluid collection noted on CT at surgical site. TERESITA drain still in place with minimal output. Patient is afebrile, HD stable, non-toxic in appearance, no leukocytosis. ?abscess vs most likely a seroma. -Admit to medical floor -Consult Orthopedic Surgery -Appreciate input: no surgical intervention at this moment. Awaiting to see if patient improves with antibiotics. will monitor for another 24 hours. -Continue empiric antibiotics for now - Vancomycin and Zosyn -Pain control with Tylenol, Flexeril, Neurontin, Percocet and Dilaudid PRN -Follow culture results (2) Cervical pain: As above, continue home medication regimen, Tylenol/Percocet/Flexeril/Neurontin Dilaudid PRN F/E/N - Heplock. Monitor electrolytes. NPO Code - DNR/DNI Admission and Anticipated Discharge Date Admission Date: May 03, 2020 Subjective Patient reports she continues to have pain in her neck. No significant improvement from yesterday. Review of Systems Review of Systems: All systems reviewed & are unremarkable except as noted in HPI & below Physical Exam Physical Exam: General: patient appears uncomfortable, NAD, AA&O x 4, answers questions and follows commands HEENT: NC/AT, PERRL, EOMI, anicteric sclera, conjunctiva without injection, external ear normal to inspection and nontender, nares patent, moist mucus membranes, dentition intact, no oropharyngeal lesions, neck supple, trachea midline, no LAD, no thyromegaly, no JVD Heart: +S1/S2, regular, no m/r/g Lungs: equal air entry bilaterally, no rales/rhonchi/wheezes Abd: +BS, soft, NT/ND, no masses/organomegaly/ascites Ext: warm, 2+ pulses in UE/LE bilaterally, no clubbing/cyanosis or edema Neuro: nonfocal, patient AA&O x 4, speech intact, no facial droop, moving all extremities on command with equal strength 5/5 Neck: surgical wound with no bleeding/drainage. TERESITA drain in place, no purulence expressed, no foul smell Results & Data Results & Data ([facility]) Vital Signs (Past 12 Hours) Vital Signs Temp Pulse Resp BP Pulse Ox 05/05/20 14:58 36.7 C 79 18 126/75 97 PG Care Time/CCT Total # of Minutes Spent Total Time Spent with Patient: Total time spent is greater than 50% in coordination of care (as documented) at patient's floor/unit and/or counseling patient: Coding Level of Care Code 13107 Subseq Hosp Care Lvl 2 Diagnoses Fluid collection at surgical site T88.8XXA Encounter type: initial encounter Cervical pain M54.2 Time Spent (min) 25 (1) Fluid collection at surgical site Encounter type: initial encounter Qualified Code(s): T88.8XXA - Other specified complications of surgical and medical care, not elsewhere classified, initial encounter
[2020-05-06] MEDS: HYDROmorphone INJ 0.5 MG/0.5 ML SYR IV PRN ×7 (02:08→23:36)
[2020-05-06] MEDS: PIPERACILLIN/TAZOBACTAM 3.375 GM in DEXTROSE 5% 100 ML IV SCH ×3 (03:04→19:59)
[2020-05-06 06:55] LABS: Creatinine Clr Calc Pharmacy 59.9 ml/min; Est GFR (African American) 67.5; Est GFR (Non-African American) 58.2
[2020-05-06] MEDS: OXYCODONE/ACETAMINOPHEN 10-325 TAB PO PRN ×2 (07:19→17:55)
[2020-05-06] MEDS: NICOTINE 21 MG/24 HR TDSY TD SCH (09:19)
[2020-05-06] MEDS: GABAPENTIN 300 MG CAP PO SCH ×3 (09:20→20:00)
--- NOTE | 2020-05-06 11:45 | Hospitalist Progress Note ---
Date of Service May 06, 2020 Assessment & Plan (1) Fluid collection at surgical site: Fairly large fluid collection noted on CT at surgical site. TERESITA drain still in place with minimal output. Patient is afebrile, HD stable, non-toxic in appearance, no leukocytosis. ?abscess vs most likely a seroma. -Admit to medical floor -Consult Orthopedic Surgery -Appreciate input: no surgical intervention at this moment. CULTURES CAME BACK AND SHOWED SENSITIVITY TO BACTRIM. -Continue empiric antibiotics for now - Zosyn. Stopped vanco. when ready to discharge will place on bactrim. -Pain control with Tylenol, Flexeril, Neurontin, Percocet and Dilaudid PRN -Follow culture results (2) Cervical pain: As above, continue home medication regimen, Tylenol/Percocet/Flexeril/Neurontin Dilaudid PRN Placed on soma. F/E/N - Heplock. Monitor electrolytes. NPO Code - DNR/DNI Admission and Anticipated Discharge Date Admission Date: May 03, 2020 Subjective Patient reports that she continues to have pain. She reports that she is trying to move more and is interested in trying another muscle relaxer. Patient also states she had discussed with Dr. Driscoll and is agreeable to staying for another couple of days. Review of Systems Review of Systems: All systems reviewed & are unremarkable except as noted in HPI & below Physical Exam Physical Exam: General: patient appears uncomfortable, NAD, AA&O x 4, answers questions and follows commands HEENT: NC/AT, PERRL, EOMI, anicteric sclera, conjunctiva without injection, external ear normal to inspection and nontender, nares patent, moist mucus membranes, dentition intact, no oropharyngeal lesions, neck supple, trachea midline, no LAD, no thyromegaly, no JVD Heart: +S1/S2, regular, no m/r/g Lungs: equal air entry bilaterally, no rales/rhonchi/wheezes Abd: +BS, soft, NT/ND, no masses/organomegaly/ascites Ext: warm, 2+ pulses in UE/LE bilaterally, no clubbing/cyanosis or edema Neuro: nonfocal, patient AA&O x 4, speech intact, no facial droop, moving all extremities on command with equal strength 5/5 Neck: surgical wound with no bleeding/drainage. TERESITA drain in place, no purulence expressed, no foul smell Results & Data Results & Data ([facility]) Vital Signs (Past 12 Hours) Vital Signs Temp Pulse Resp BP Pulse Ox 05/06/20 06:51 36.7 C 73 16 118/77 97 PG Care Time/CCT Total # of Minutes Spent Total Time Spent with Patient: Total time spent is greater than 50% in coordination of care (as documented) at patient's floor/unit and/or counseling patient: Coding Level of Care Code 02801 Subseq Hosp Care Lvl 2 Diagnoses Fluid collection at surgical site T88.8XXA Encounter type: initial encounter Cervical pain M54.2 Time Spent (min) 25 (1) Fluid collection at surgical site Encounter type: initial encounter Qualified Code(s): T88.8XXA - Other specified complications of surgical and medical care, not elsewhere classified, initial encounter
--- NOTE | 2020-05-06 11:48 | Orthopedic Progress Note ---
Date of Service May 06, 2020 Assessment & Plan (1) Cervical pain: At this time we are going to continue with IV and biotics and close observation. Hopefully this will continue to improve and we can transition to oral antibiotics and avoid a revision I&D. Present on Admission?: Yes Admission and Anticipated Discharge Date Admission Date: May 03, 2020 Anticipated date of discharge: 05/06/20 Subjective Patient's neck symptoms are steadily improving. She still is complaining of pain mostly in the right trapezial musculature. There is no radicular component. Physical Exam Physical Exam: On exam she has some modest tenderness palpation of the right trap there is still some modest erythema around the incision. Tenderness is receded dramatically upon palpation. She is excellent strength testing the up per extremities. Results & Data ([facility]) Vital Signs (Past 12 Hours) Vital Signs Temp Pulse Resp BP Pulse Ox 05/06/20 06:51 36.7 C 73 16 118/77 97
[2020-05-06] MEDS: CARISOPRODOL 350 MG TABLET PO PRN (21:01)
[2020-05-07] MEDS: HYDROmorphone INJ 0.5 MG/0.5 ML SYR IV PRN ×6 (02:36→19:42)
[2020-05-07] MEDS: PIPERACILLIN/TAZOBACTAM 3.375 GM in DEXTROSE 5% 100 ML IV SCH ×3 (03:11→20:17)
[2020-05-07] MEDS: OXYCODONE/ACETAMINOPHEN 10-325 TAB PO PRN ×3 (03:50→14:00)
[2020-05-07 06:44] LABS: Creatinine Clr Calc Pharmacy 54.6 ml/min; Est GFR (African American) 60.3
[2020-05-07] MEDS: NICOTINE 21 MG/24 HR TDSY TD SCH (08:14)
[2020-05-07] MEDS: GABAPENTIN 300 MG CAP PO SCH ×3 (08:14→20:17)
--- NOTE | 2020-05-07 09:47 | Orthopedic Progress Note ---
Date of Service May 07, 2020 Assessment & Plan (1) Fluid collection at surgical site: At this time we will continue observation and response to antibiotics. Hopefully she will be transition to oral antibiotics and be able to discharge home the next day or so. Present on Admission?: Yes Admission and Anticipated Discharge Date Admission Date: May 03, 2020 Anticipated date of discharge: 05/06/20 Subjective Patient complaining of some right trapezial pain but otherwise is mobilizing well. Physical Exam Physical Exam: On exam the incision some very modest erythema. Does not appear to be grossly infected at this time. I do not appreciate fluctuance under the skin to palpation. She is neurologically intact. Results & Data ([facility]) Vital Signs (Past 12 Hours) Vital Signs Temp Pulse Resp BP Pulse Ox 05/07/20 08:00 36.7 C 68 16 119/75 99 05/06/20 23:11 36.8 C 79 16 129/84 97 (1) Fluid collection at surgical site Encounter type: initial encounter Qualified Code(s): T88.8XXA - Other specified complications of surgical and medical care, not elsewhere classified, initial encounter
[2020-05-07] MEDS: POLYETHYLENE (MIRALAX) 17 GM PACK PO SCH (19:41)
[2020-05-07] MEDS: CARISOPRODOL 350 MG TABLET PO PRN (20:49)
--- NOTE | 2020-05-07 22:34 | Hospitalist Progress Note ---
Date of Service May 07, 2020 Assessment & Plan (1) Fluid collection at surgical site: Fairly large fluid collection noted on CT at surgical site. TERESITA drain still in place with minimal output. Patient is afebrile, HD stable, non-toxic in appearance, no leukocytosis. ?abscess vs most likely a seroma. -Admit to medical floor -Consult Orthopedic Surgery -Appreciate input: no surgical intervention at this moment. CULTURES CAME BACK AND SHOWED SENSITIVITY TO BACTRIM. -Continue empiric antibiotics for now - Zosyn. Stopped vanco. when ready to discharge, will place on bactrim. /W ortho, will keep patient in hospital at least until Saturday. -Pain control with Tylenol, Flexeril, Neurontin, Percocet and Dilaudid PRN -Follow culture results (2) Cervical pain: As above, continue home medication regimen, Tylenol/Percocet/Flexeril/Neurontin Dilaudid PRN Placed on soma. F/E/N - Heplock. Monitor electrolytes. NPO Code - DNR/DNI Admission and Anticipated Discharge Date Admission Date: May 03, 2020 Subjective Patient reports no new symptoms. Continues to have neck pain.. Review of Systems Review of Systems: All systems reviewed & are unremarkable except as noted in HPI & below Physical Exam Physical Exam: General: patient appears uncomfortable, NAD, AA&O x 4, answers questions and follows commands HEENT: NC/AT, PERRL, EOMI, anicteric sclera, conjunctiva without injection, external ear normal to inspection and nontender, nares patent, moist mucus membranes, dentition intact, no oropharyngeal lesions, neck supple, trachea midline, no LAD, no thyromegaly, no JVD Heart: +S1/S2, regular, no m/r/g Lungs: equal air entry bilaterally, no rales/rhonchi/wheezes Abd: +BS, soft, NT/ND, no masses/organomegaly/ascites Ext: warm, 2+ pulses in UE/LE bilaterally, no clubbing/cyanosis or edema Neuro: nonfocal, patient AA&O x 4, speech intact, no facial droop, moving all extremities on command with equal strength 5/5 Neck: surgical wound with no bleeding/drainage. TERESITA drain in place, no purulence expressed, no foul smell Results & Data Results & Data ([place]) Vital Signs (Past 12 Hours) Vital Signs Temp Pulse Resp BP Pulse Ox 05/07/20 15:21 36.7 C 76 18 116/80 95 05/07/20 12:06 36.7 C 67 16 119/79 96 PG Care Time/CCT Total # of Minutes Spent Total Time Spent with Patient: Total time spent is greater than 50% in coordination of care (as documented) at patient's floor/unit and/or counseling patient: Coding Level of Care Code 35305 Subseq Hosp Care Lvl 2 Diagnoses Fluid collection at surgical site T88.8XXA Encounter type: initial encounter Cervical pain M54.2 Time Spent (min) 25 (1) Fluid collection at surgical site Encounter type: initial encounter Qualified Code(s): T88.8XXA - Other specified complications of surgical and medical care, not elsewhere classified, initial encounter
[2020-05-08] MEDS: HYDROmorphone INJ 0.5 MG/0.5 ML SYR IV PRN ×8 (00:12→22:57)
[2020-05-08] MEDS: OXYCODONE/ACETAMINOPHEN 10-325 TAB PO PRN ×3 (02:28→17:58)
[2020-05-08] MEDS: PIPERACILLIN/TAZOBACTAM 3.375 GM in DEXTROSE 5% 100 ML IV SCH ×3 (03:29→20:25)
[2020-05-08] MEDS: POLYETHYLENE (MIRALAX) 17 GM PACK PO SCH (08:52)
[2020-05-08] MEDS: NICOTINE 21 MG/24 HR TDSY TD SCH (08:54)
[2020-05-08] MEDS: GABAPENTIN 300 MG CAP PO SCH ×3 (08:54→20:25)
--- NOTE | 2020-05-08 10:43 | Orthopedic Progress Note ---
Date of Service May 08, 2020 Assessment & Plan (1) Fluid collection at surgical site: At this time we will continue IV antibiotics today. I hopefully will be to transition her to oral antibiotics and discharge home tomorrow. Present on Admission?: Yes Admission and Anticipated Discharge Date Admission Date: May 03, 2020 Anticipated date of discharge: 05/06/20 Subjective Neck pain is controlled some modest burning to the right trapezial musculature but this is improved as well. No numbness or tingling in the arms. Physical Exam Physical Exam: Incision has some modest erythema only. Does not appear to be inflamed. I do not appreciate any fluctuance to palpation. There is no active drainage. Results & Data ([facility]) Vital Signs (Past 12 Hours) Vital Signs Temp Pulse Resp BP Pulse Ox 05/08/20 07:04 36.9 C 58 L 16 115/77 97 05/07/20 22:52 36.7 C 85 16 122/84 95 (1) Fluid collection at surgical site Encounter type: initial encounter Qualified Code(s): T88.8XXA - Other specified complications of surgical and medical care, not elsewhere classified, initial encounter
[2020-05-08] MEDS: CARISOPRODOL 350 MG TABLET PO PRN (20:34)
--- NOTE | 2020-05-08 23:26 | Hospitalist Progress Note ---
Date of Service May 08, 2020 Assessment & Plan (1) Fluid collection at surgical site: Fairly large fluid collection noted on CT at surgical site. TERESITA drain still in place with minimal output. Patient is afebrile, HD stable, non-toxic in appearance, no leukocytosis. ?abscess vs most likely a seroma. -Admit to medical floor -Consult Orthopedic Surgery -Appreciate input: no surgical intervention at this moment. CULTURES CAME BACK AND SHOWED SENSITIVITY TO BACTRIM. -Continue empiric antibiotics for now - Zosyn. Stopped vanco. when ready to discharge, will place on bactrim. D/W ortho, will keep patient in hospital at least until Saturday for IV antibiotics -Pain control with Tylenol, Flexeril, Neurontin, Percocet and Dilaudid PRN (2) Cervical pain: As above, continue home medication regimen, Tylenol/Percocet/Flexeril/Neurontin Dilaudid PRN Placed on soma. F/E/N - Heplock. Monitor electrolytes. NPO Code - DNR/DNI Admission and Anticipated Discharge Date Admission Date: May 03, 2020 Subjective 44 YO FEMALE reports no significant change today. Still having neck pain, but is agreeable for discharge on saturday if Dr. Driscoll is agreeable. Review of Systems Review of Systems: All systems reviewed & are unremarkable except as noted in HPI & below Physical Exam Physical Exam: General: patient appears uncomfortable, NAD, AA&O x 4, answers questions and follows commands HEENT: NC/AT, PERRL, EOMI, anicteric sclera, conjunctiva without injection, external ear normal to inspection and nontender, nares patent, moist mucus membranes, dentition intact, no oropharyngeal lesions, neck supple, trachea midline, no LAD, no thyromegaly, no JVD Heart: +S1/S2, regular, no m/r/g Lungs: equal air entry bilaterally, no rales/rhonchi/wheezes Abd: +BS, soft, NT/ND, no masses/organomegaly/ascites Ext: warm, 2+ pulses in UE/LE bilaterally, no clubbing/cyanosis or edema Neuro: nonfocal, patient AA&O x 4, speech intact, no facial droop, moving all extremities on command with equal strength 5/5 Neck: surgical wound with no bleeding/drainage. no foul smell Results & Data Results & Data ([facility]) Vital Signs (Past 12 Hours) Vital Signs Temp Pulse Resp BP Pulse Ox 05/08/20 15:29 36.5 C 77 18 118/75 99 PG Care Time/CCT Total # of Minutes Spent Total Time Spent with Patient: Total time spent is greater than 50% in coordination of care (as documented) at patient's floor/unit and/or counseling patient: Coding Level of Care Code 29697 Subseq Hosp Care Lvl 2 Diagnoses Fluid collection at surgical site T88.8XXA Encounter type: initial encounter Cervical pain M54.2 (1) Fluid collection at surgical site Encounter type: initial encounter Qualified Code(s): T88.8XXA - Other specified complications of surgical and medical care, not elsewhere classified, initial encounter
[2020-05-09] MEDS: OXYCODONE/ACETAMINOPHEN 10-325 TAB PO PRN (01:46)
[2020-05-09] MEDS: HYDROmorphone INJ 0.5 MG/0.5 ML SYR IV PRN ×4 (02:27→12:17)
[2020-05-09] MEDS: PIPERACILLIN/TAZOBACTAM 3.375 GM in DEXTROSE 5% 100 ML IV SCH ×2 (03:44→11:57)
[2020-05-09 08:28] LABS: Basophils # (auto) 0.07 K/uL (0-0.2); Eosinophils # (auto) 0.57 K/uL (0-0.5); Eosinophils % (auto) 8.1 %; Hematocrit (blood only) 37.9 % (37-47); Hemoglobin 12.4 g/dL (12.0-16.0); Immature Granulocytes # (auto) 0.02 K/uL (0.00-0.02); Immature Granulocytes % (auto) 0.3 %; Lymphocytes # (auto) 2.21 K/uL (1.2-3.4); Lymphocytes % (auto) 31.5 %; Mean Corpuscular Hemoglobin 29.6 pg (25-34); Mean Corpuscular Hgb Conc 32.7 g/dL (32-36); Mean Corpuscular Volume 90.5 fL (80-100); Mean Platelet Volume 8.5 fL (7.4-10.4); Monocytes # (auto) 0.78 K/uL (0.11-0.59); Monocytes % (auto) 11.1 %; Neutrophils # (auto) 3.36 K/uL (1.4-6.5); Platelet Count 417 K/uL (130-400); RDW Coefficient of Variation 12.5 % (11.5-14.5); RDW Standard Deviation 41.7 fL (36.4-46.3); Red Blood Count 4.19 M/uL (4.2-5.4); White Blood Count 7.01 K/uL (4.8-10.8)
[2020-05-09] MEDS: POLYETHYLENE (MIRALAX) 17 GM PACK PO SCH (08:47)
[2020-05-09] MEDS: NICOTINE 21 MG/24 HR TDSY TD SCH (08:53)
[2020-05-09] MEDS: GABAPENTIN 300 MG CAP PO SCH (08:54)
[2020-05-09 09:33] LABS: BUN Creatinine Ratio 11.9 (10-20); Creatinine Clr Calc Pharmacy 55.4 ml/min; Est GFR (African American) 61.5; Est GFR (Non-African American) 53.1; Magnesium 2.3 mg/dl (1.8-2.4); Potassium 4.2 mmol/L (3.5-5.1)
--- NOTE | 2020-05-09 11:18 | Orthopedic Progress Note ---
Date of Service May 09, 2020 Assessment & Plan (1) Fluid collection at surgical site: Patient will discharge home today on oral antibiotics. I will see her next week to assess her response. To keep a close eye on her incision. She understands if she regresses or is failure to improve we may have to consider repeat I&D. Present on Admission?: Yes Admission and Anticipated Discharge Date Admission Date: May 03, 2020 Anticipated date of discharge: 05/06/20 Subjective Patient still has some modest cervicalgia prickly the right trapezial mature musculature but no radicular complaints. Physical Exam Physical Exam: Patient is ambulating well. She has good strength testing. The incision is healing appropriately. Very modest light erythema. There is no fluctuance to palpation. Results & Data ([facility]) Vital Signs (Past 12 Hours) Vital Signs Temp Pulse Resp BP Pulse Ox 05/09/20 07:42 36.8 C 76 16 119/82 96 05/09/20 00:16 36.6 C 68 17 129/86 97 (1) Fluid collection at surgical site Encounter type: initial encounter Qualified Code(s): T88.8XXA - Other specified complications of surgical and medical care, not elsewhere classified, initial encounter
--- NOTE | 2020-05-09 16:32 | Discharge Summary ---
Date of Service May 09, 2020 Admission HPI Per Admitting Provider Sanam Morales is a 44yo C female with history of multiple back surgeries in the past, most recently posterior cervical decompression and fusion C6-7, posterior cervical fusion C5-T3 with placement of posterior segmental instrumentation rods/screws at C5-T3 performed by Dr. Driscoll on 04/11/20. Surgery was well tolerated. She returned to the OR on 04/18/20 for I&D of cervical seroma with placement of vancomycin/gentamicin impregnated beads. Patient had been doing fairly well at home until yesterday when she ran out of pain pills. She states she was unable to get a timely refill on her pain medications. She also noted some increased drainage from her surgical site noticed by her Home Health Nurse today. She denies fevers/chills/malaise/nausea/vomiting. She does not believe that the drainage is foul smelling but states that it was "definitely pus". She has a TERESITA drain in place with minimal serous output. She reports severe neck pain and spasm. Denies numbness/tingling/weakness of the arms/hands. No additional complaints at this time. ER Course: Vancomycin, Zosyn, Fentanyl Principal Diagnosis Fluid collection at cervical surgical site Discharge Exam Constitutional WD/WN, vitals as above Eyes EOM intact bilaterally; no conjunctival abnormality ENMT external ear and nose normal, oropharynx normal Neck trachea midline, no thyromegaly normal visual inspection Respiratory normal respiratory effort, lungs clear to auscultation no respiratory distress Cardiovascular RRR, no murmur, no edema Gastrointestinal (Abdomen) Inspection/Auscultation: abdomen normal to inspection; abdomen not distended Musculoskeletal no cyanosis or clubbing, extremities motor strength 5/5 Skin no rashes, warm and dry Neurologic moves all extremities and awake Psychiatric Orientation: alert, oriented to person and cooperative Discharge Data Allergies Allergy/AdvReac Type Severity Reaction Status Date / Time ibuprofen Allergy Severe Swelling Verified 05/03/20 22:13 of Lip/Tongue/Throat tramadol [From Ultram] Allergy Intermediate Rash Verified 05/03/20 22:13 codeine AdvReac Intermediate GI SYMPTOMS Verified 05/03/20 22:13 morphine AdvReac Intermediate GI SYMPTOMS Verified 05/03/20 22:13 Consultations 05/03/20 22:04 ED Decision to Admit Stat 05/04/20 01:07 Consult Orthopedic Surgery Routine Ordered Studies 05/03/20 17:29 CT cervical spine w con Stat CT thoracic spine w con Stat Hospital Course (1) Fluid collection at surgical site: Fairly large fluid collection noted on CT at surgical site. TERESITA drain still in place with minimal output. Patient is afebrile, HD stable, non-toxic in appearance, no leukocytosis. ?abscess vs most likely a seroma. - Consulted Orthopedic Surgery -> Patient examined by Dr. Driscoll on multiple occasions. - Plan for discharge on 1 additional week of PO abx, then Dr. Driscoll will make further judgement (per patient, she will see him on a weekly basis for the foreseeable future). - Discharged on levofloxacin x 1 week. Discussed with micro, and both bacteria are sensitive. Cleared this option with Dr. Driscoll who was in agreement with antibiotic and duration. - Pain control with Tylenol, Flexeril, Neurontin, Percocet and Dilaudid PRN (2) SOPHY (acute kidney injury): Baseline Cr is ~0.6; up to 1.22 on discharge (stable over 3 days). Possibly due to being on vanc/Zosyn combination. - Discussed with patient; given stability I do not feel it is needed to keep her here. She is drinking well and urine is clean/clear, so do not feel pre-renal is likely. - Will stop Zosyn anyhow and switch to levofloxacin. Will need repeat BMP in 1 week. Encouraged to have good hydration. (3) Cervical pain: As above, continue home medication regimen, Tylenol/Percocet/Flexeril/Neurontin Dilaudid PRN Placed on soma. F/E/N - [place]. Monitor electrolytes. NPO Code - DNR/DNI Total Time Total Time Spent Total Time Spent (In Minutes): 35 Total Time Includes: Examination of the Patient, Discharge Planning, Medication Reconciliation and Communication With Other Providers Discharge Plan Discharge Items Patient Disposition: Home - Self-Care Reason For Visit: POST OPERATIVE FLUID COLLECTION Discharge Diagnosis: Post-operative fluid collection - Possibly seroma (normal post-operative fluid) vs. infection Activity: Resume your previous activity Non-emergency contact: Primary Care Provider and Surgeon Call non-emergency contact if: your symptoms worsen, your pain is worsening and your temperature is above 101 Follow-up/Referrals: Juan Driscoll, [Surgeon] - (Please see Dr. Driscoll every week until he reports otherwise.) Royer Gutiérrez DO [Primary Care Provider] - Diet: Regular Addtl Attending Provider Instructions: You were admitted for a fluid collection near the surgical area. It's unclear whether this is an infective process vs. some normal post-operative fluid from the irritation of the surgery. We are sending you home on oral antibiotics. This antibiotic is a once a day antibiotic called levofloxacin. This will cover the two bacteria that were collected from the surgical area. Please take your first dose tonight before bedtime, then every evening until it is gone. Please take this antibiotic for 1 week, and see Dr. Driscoll before you finish the antibiotic. Your kidney function was slightly off here in the hospital; however, it was stable and even slightly improving by the time of your discharge. Please follow up with your PCP this week to have a "BMP" rechecked to be sure your kidney function is getting back to normal. On discharge, your creatinine is 1.22 where a lower number is better and your previous ones were 0.6 - 0.7. I do think this will return to normal in a few days to a week. Please be sure to stay hydrated and aim to have light yellow urine. Pending Studies at Discharge: No Stand-Alone Forms: My [facility], Opioid Pain Management, Smoking Cessation Medications and DC Order Prescriptions: New levofloxacin 750 mg tablet 750 mg PO DAILY 7 Days Qty: 7 RF: 0 hydromorphone [Dilaudid] 2 mg tablet 2 mg PO Q6H PRN (Reason: pain) Qty: 20 RF: 0 Continued cyclobenzaprine 10 mg Tablet 10 mg PO HS PRN (Reason: Pain) RF: 0 gabapentin 300 mg Capsule 300 mg PO TID 30 Days Qty: 90 RF: 0 Discontinued carisoprodol [Soma] 350 mg Tablet 350 mg PO Q8 PRN (Reason: muscle pain) Qty: 30 RF: 0 oxycodone-acetaminophen [Percocet] 10-325 mg tablet 1 tab PO Q6 PRN (Reason: Pain) RF: 0 Discharge Orders: Discharge Order (Routine); Ordered 05/09/20 Ordered By: Iftikhar Waters/Other Patient Handouts: Pain Complementary Tx, Opioid Use and Safety Admission Data Admit Date/Time: 05/03/20 22:56 Attending Provider: Iftikhar Anderson Admit Provider: Tabatha Batres Primary Care Provider: Royer Gutiérrez Other Providers: Juan Driscoll ; Iftikhar Anderson. Other Interventions: Discharge Summary Assessment (RN) Last Done: 05/09/20 11:25 DC Date/Time DO NOT enter until pt leaves facility: 05/09/20 13:18 Coding Level of Care Code D/C Day Management >30 mins Diagnoses Fluid collection at surgical site T88.8XXA Encounter type: initial encounter SOPHY (acute kidney injury) N17.9 Cervical pain M54.2
== END 2020-05-09 13:18 | disposition home or self-care (01) | DRG 920 ==
LOC: ED 15:01 → 3E 22:56 → SUATTDRO 22:56 → 3E 05-04 00:29